=== PATIENT | female | born 1945 | race Caucasian/White ===

== ENCOUNTER 2017-02-08 16:07 | Inpatient (IN) | payer MEDICARE, BC ==
--- NOTE | 2017-02-08 17:12 | EDM.PDOC ---
ED HPI GENERAL MEDICAL PROBLEM - General Chief Complaint: General Stated Complaint: SOB Time Seen by Provider: 02/08/17 17:59 Source of Information: Reports: Patient, Family History Limitations: Reports: No Limitations - History of Present Illness INITIAL COMMENTS - FREE TEXT/NARRATIVE: pt arrived with increasing sob and not being able to rest at nite. 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 She has slight stomach pain. She has had some dark and tarry stools. She recently moved from [facility] and she has been hospitalized twice at [facility]. she has been transfused with a number of units of blood. She did have a colonoscopy and gastro at [place]. She is so short of breath again that she is not able to funtion. She lives in a home with her who has dementia. Onset: Gradual Duration: Day(s):, Getting Worse Location: Reports: Abdomen Associated Symptoms: Reports: Shortness of Breath, Weakness, Other ( Pt has had syncope and maybe a cardiac arrest that the daughter did cpr for. ) - Related Data Allergies Allergy/AdvReac Type Severity Reaction Status Date / Time escitalopram Allergy Drowsiness Verified 02/08/17 16:38 sertraline Allergy Stomach Verified 02/08/17 16:38 Upset shellfish derived Allergy Vomiting Verified 02/08/17 16:38 shrimp Allergy Vomiting Verified 02/08/17 16:38 venlafaxine Allergy Nausea and Verified 02/08/17 16:38 Vomiting BUPROPION HYDROBROMIDE Allergy Bleeding Uncoded 02/08/17 16:38 GLUTEN Allergy Other Uncoded 02/08/17 16:38 GOLD Allergy Hives Uncoded 02/08/17 16:31 SILVER PICRATE Allergy Hives Uncoded 02/08/17 16:31 SULFA DRUGS Allergy Nausea and Uncoded 02/08/17 16:38 Vomiting X RAY DYE Allergy Itching Uncoded 02/08/17 16:38 Home Meds: Home Meds Albuterol [Proventil HFA] 1 puff INH QID 02/08/17 [History] Albuterol/Ipratropium [DuoNeb 3.0-0.5 MG/3 ML] 1 dose INH QID 02/08/17 [History] Aspirin [Halfprin] 1 tab PO DAILY 02/08/17 [History] Benazepril [Lotensin] 1 tab PO DAILY 02/08/17 [History] Cholecalciferol (Vitamin D3) [Vitamin D3] 1 tab PO DAILY 02/08/17 [History] Cyclobenzaprine [Flexeril] 1 tab PO TID PRN 02/08/17 [History] Furosemide [Lasix] 1 tab PO DAILY 02/08/17 [History] Isosorbide Mononitrate [Isosorbide Mononitrate ER] 1 tab PO DAILY 02/08/17 [ History] Lovastatin 1 tab PO QPM 02/08/17 [History] Metoprolol Tartrate 75 mg PO BID 02/08/17 [History] Multivitamin [Multi-Vitamin Daily] 1 tab PO DAILY 02/08/17 [History] Nebulizer [[employer] Disposable Nebulizer] 1 ea INH Q4H PRN 02/08/17 [History] Nicotine Polacrilex [Nicotine Lozenge] 1 boo PO Q4H 02/08/17 [History] Nicotine [Nicotine Patch] 1 patch TOP Q24H 02/08/17 [History] Nitroglycerin [Nitrostat] 1 tab PO ASDIRECTED 02/08/17 [History] Octreotide [SandoSTATIN LAR] 30 mg SQ ASDIRECTED 02/08/17 [History] Omeprazole 1 tab PO BID 02/08/17 [History] Oxybutynin [Oxybutynin ER] 10 mg PO DAILY 02/08/17 [History] Vitamin E 1 tab PO DAILY 02/08/17 [History] amLODIPine [Norvasc] 1 tab PO DAILY 02/08/17 [History] hydrALAZINE [Apresoline] 1 tab PO Q8H 02/08/17 [History] traZODone 1 tab PO BEDTIME 02/08/17 [History] ED ROS GENERAL - Review of Systems Review Of Systems: See Below Constitutional: Reports: No Symptoms, Decreased Appetite HEENT: Reports: No Symptoms Respiratory: Reports: Shortness of Breath Cardiovascular: Reports: Palpitations Endocrine: Reports: Fatigue GI/Abdominal: Reports: Abdominal Pain, Other (pt has slight upper abdomanal pain. ) : Reports: No Symptoms Musculoskeletal: Reports: No Symptoms Skin: Reports: No Symptoms Neurological: Reports: No Symptoms Psychiatric: Reports: No Symptoms, Depression ED EXAM, GENERAL - Physical Exam Exam: See Below Free Text/Narrative:: pt arrived with increased sob. She has had black stools. She is so weak she is not able to function. Exam Limited By: No Limitations General Appearance: Alert, Anxious, Moderate Distress, Other (pupils equal and reactive) Ears: Normal TMs Nose: Normal Inspection Throat/Mouth: Normal Inspection Head: Atraumatic Neck: Normal Inspection Respiratory/Chest: Decreased Breath Sounds Cardiovascular: Regular Rate, Rhythm GI/Abdominal: Tender, Other (pt has tenderness in the upper abdoman. ) (Female) Exam: Deferred Rectal (Female) Exam: Deferred Back Exam: Normal Inspection Extremities: Normal Inspection Neurological: Alert, Oriented, Normal Cognition Psychiatric: Flat Affect Course - Vital Signs Last Recorded V/S: Last Vital Signs Temp 37.1 C 02/08/17 17:28 Pulse 54 L 02/08/17 17:28 Resp 21 H 02/08/17 17:28 BP 144/45 H 02/08/17 17:28 Pulse Ox 93 L 02/08/17 17:28 - Orders/Labs/Meds Orders: Active Orders 24 hr Category Date Time Status Chest 1V Frontal [CR] Stat Exams 02/08/17 17:10 Taken COMPREHENSIVE METABOLIC PN,CMP [CHEM] Urgent Lab 02/08/17 17:31 Received RED BLOOD CELLS LP [BBK] Stat Lab 02/08/17 17:56 Ordered TYPE AND SCREEN [BBK] Stat Lab 02/08/17 17:56 Ordered UA W/MICROSCOPIC [URIN] Urgent Lab 02/08/17 17:09 Uncollected Labs: Laboratory Tests 02/08/17 Range/Units 17:31 WBC 8.2 (4.5-11.0) K/uL RBC 3.02 L (3.30-5.50) M/uL Hgb 7.9 L (12.0-15.0) g/dL Hct 26.1 L (36.0-48.0) % MCV 86 (80-98) fL MCH 26 L (27-31) pg MCHC 30 L (32-36) % Plt Count 292 (150-400) K/uL Neut % (Auto) 73 H (36-66) % Lymph % (Auto) 11 L (24-44) % Cross % (Auto) 13 H (2-6) % Eos % (Auto) 2 (2-4) % Baso % (Auto) 1 (0-1) % - Re-Assessments/Exams Free Text/Narrative Re-Assessment/Exam: 02/08/17 18:14 pt was found to have a hg of 7.9. She has a creatnine of 1.4. Her chest xray shows a large left pleural effusion. Departure - Departure Time of Disposition: 18:17 Disposition: Admitted As Inpatient 65 Condition: Fair Clinical Impression: Anemia, Pleural effusion - Discharge Information Referrals: PCP,None [Primary Care Provider] - Forms: ED Department Discharge Care Plan Goals: admit to Dr cornelius. - My Orders Last 24 Hours: My Active Orders 02/08/17 17:09 UA W/MICROSCOPIC [URIN] Urgent 02/08/17 17:10 Chest 1V Frontal [CR] Stat 02/08/17 17:31 COMPREHENSIVE METABOLIC PN,CMP [CHEM] Urgent 02/08/17 17:56 RED BLOOD CELLS LP [BBK] Stat TYPE AND SCREEN [BBK] Stat - Assessment/Plan Last 24 Hours: My Active Orders 02/08/17 17:09 UA W/MICROSCOPIC [URIN] Urgent 02/08/17 17:10 Chest 1V Frontal [CR] Stat 02/08/17 17:31 COMPREHENSIVE METABOLIC PN,CMP [CHEM] Urgent 02/08/17 17:56 RED BLOOD CELLS LP [BBK] Stat TYPE AND SCREEN [BBK] Stat
[2017-02-08] MEDS ORDERED: Albuterol 0.083% 2.5 MG/3 ML Neb Soln NEB ONE (18:22)
[2017-02-08] MEDS: Sodium Chloride 0.9% 1,000 ML IV SCH ×2 (19:04→19:06)
--- NOTE | 2017-02-08 19:53 | PCM.HP ---
H&P History of Present Illness - General Date of Service: 02/08/17 Admit Problem/Dx: Admission Diagnosis/Problem Admission Diagnosis/Problem Pleural effusion Source of Information: Patient, Family, Provider History Limitations: Reports: No Limitations - History of Present Illness Initial Comments - Free Text/Narative: Akiko presents to the emergency room today with shortness of breath. She reports that she has not had normal breathing for the past month. She has been hospitalized twice for management of symptomatic anemia as well as heart failure and COPD exacerbation. She reports mild shortness of breath at rest and moderate with activity. She has orthopnea and occasional lower extremity swelling. She does not have a cough and has not had any fevers. Some days are better than others and she is always short of breath. Nebulizers don't seem to help much. She has had a few tarry stools the past few days but has not had hematemesis. No complaints of chest pain or abdominal pain. She does report a tender bruise on the right lower part of her abdomen from her last hospital stay. She was just discharged from the hospital a few days ago and has not felt well since that time. She is fatigued and has no appetite. Workup in the emergency room revealed a moderate left pleural effusion as well as a hemoglobin of 7.9. She will be admitted for further management and workup. - Related Data Allergies/Adverse Reactions: Allergies Allergy/AdvReac Type Severity Reaction Status Date / Time escitalopram Allergy Drowsiness Verified 02/08/17 16:38 sertraline Allergy Stomach Verified 02/08/17 16:38 Upset shellfish derived Allergy Vomiting Verified 02/08/17 16:38 shrimp Allergy Vomiting Verified 02/08/17 16:38 venlafaxine Allergy Nausea and Verified 02/08/17 16:38 Vomiting BUPROPION HYDROBROMIDE Allergy Bleeding Uncoded 02/08/17 16:38 GLUTEN Allergy Other Uncoded 02/08/17 16:38 GOLD Allergy Hives Uncoded 02/08/17 16:31 SILVER PICRATE Allergy Hives Uncoded 02/08/17 16:31 SULFA DRUGS Allergy Nausea and Uncoded 02/08/17 16:38 Vomiting X RAY DYE Allergy Itching Uncoded 02/08/17 16:38 Home Medications: Home Meds Albuterol [Proventil HFA] 1 puff INH QID 02/08/17 [History] Albuterol/Ipratropium [DuoNeb 3.0-0.5 MG/3 ML] 1 dose INH QID 02/08/17 [History] Aspirin [Halfprin] 1 tab PO DAILY 02/08/17 [History] Benazepril [Lotensin] 1 tab PO DAILY 02/08/17 [History] Cholecalciferol (Vitamin D3) [Vitamin D3] 1 tab PO DAILY 02/08/17 [History] Cyclobenzaprine [Flexeril] 1 tab PO TID PRN 02/08/17 [History] Furosemide [Lasix] 1 tab PO DAILY 02/08/17 [History] Isosorbide Mononitrate [Isosorbide Mononitrate ER] 1 tab PO DAILY 02/08/17 [ History] Lovastatin 1 tab PO QPM 02/08/17 [History] Metoprolol Tartrate 75 mg PO BID 02/08/17 [History] Multivitamin [Multi-Vitamin Daily] 1 tab PO DAILY 02/08/17 [History] Nebulizer [[employer] Disposable Nebulizer] 1 ea INH Q4H PRN 02/08/17 [History] Nicotine Polacrilex [Nicotine Lozenge] 1 boo PO Q4H 02/08/17 [History] Nicotine [Nicotine Patch] 1 patch TOP Q24H 02/08/17 [History] Nitroglycerin [Nitrostat] 1 tab PO ASDIRECTED 02/08/17 [History] Octreotide [SandoSTATIN LAR] 30 mg SQ ASDIRECTED 02/08/17 [History] Omeprazole 1 tab PO BID 02/08/17 [History] Oxybutynin [Oxybutynin ER] 10 mg PO DAILY 02/08/17 [History] Vitamin E 1 tab PO DAILY 02/08/17 [History] amLODIPine [Norvasc] 1 tab PO DAILY 02/08/17 [History] hydrALAZINE [Apresoline] 1 tab PO Q8H 02/08/17 [History] traZODone 1 tab PO BEDTIME 02/08/17 [History] Past Medical History HEENT History: Reports: Impaired Vision Cardiovascular History: Reports: CAD, Hypertension, [place] Other Cardiovascular History: THREE VESSEL BYPASS IN 2013 Respiratory History: Reports: COPD Gastrointestinal History: Reports: GI Bleed Genitourinary History: Reports: Urinary Incontinence 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 History: Reports: Musculoskeletal History: Reports: Fracture Other Musculoskeletal History: HIP FRACTURE Neurological History: Reports: CVA Psychiatric History: Reports: Anxiety, Depression Hematologic History: Reports: Anemia, Blood Transfusion(s) - Past Surgical History HEENT Surgical History: Reports: Adenoidectomy, Cataract Surgery, Eye Surgery, Tonsillectomy Other HEENT Surgeries/Procedures: RIGHT EYE Cardiovascular Surgical History: Reports: Coronary Artery Bypass, Valve Replacement Respiratory Surgical History: Reports: None GI Surgical History: Reports: Colonoscopy, EGD Other GI Surgeries/Procedures: MEKELS DIVERTICULI, ESOPHAGEAL VARACESE Female Surgical History: Reports: Tubal Ligation Neurological Surgical History: Reports: Other (See Below) Other Neurological Surgeries/Procedures: SPINAL STENOSIS Social & Family History - Family History Cardiac: Reports: CAD (Brother) - Tobacco Use Smoking Status *Q: Current Some Day Smoker Years of Tobacco use: 50 Packs/Tins Daily: 1 Used Tobacco, but Quit: No Second Hand Smoke Exposure: Yes - Caffeine Use Caffeine Use: Reports: None - Alcohol Use Alcohol Use History: No - Recreational Drug Use Recreational Drug Use: No H&P Review of Systems - Review of Systems: Review Of Systems: See Below Free Text/Narrative: A complete 12 point review of systems was obtained. Pertinent positives and negatives are noted in the history of present illness. All other systems were reviewed and were negative except as noted. Exam - Exam Exam: See Below - Vital Signs Vital Signs: Last Vital Signs Temp 37.6 C 02/08/17 19:06 Pulse 60 02/08/17 19:06 Resp 15 02/08/17 19:06 BP 113/46 L 02/08/17 19:06 Pulse Ox 96 02/08/17 19:06 Weight: 69 kg - Exam Quality Assessment: No: Supplemental Oxygen General: Alert, Oriented, Cooperative. No: Mild Distress HEENT: Conjunctiva Clear, Mucosa Moist & [place]. No: Scleral Icterus Neck: Supple, Trachea Midline. No: Lymphadenopathy, JVD, Thyromegaly Lungs: Normal Respiratory Effort, Decreased Breath Sounds (Both lung bases, left greater than right), Crackles (Left lung base). No: Wheezing Cardiovascular: Regular Rate, Irregular Rhythm, Systolic Murmur (Mild diffuse systolic ejection murmur) GI/Abdominal Exam: Normal Bowel Sounds, Soft, Non-Tender, No Distention, Other ( 3 x 6 cm mildly tender bruise right lower abdomen) Back Exam: Normal Inspection, Full Range of Motion Extremities: No Pedal Edema. No: Increased Warmth Peripheral Pulses: 2+: Dorsalis Pedis (L), Dorsalis Pedis (R) Skin: Warm, Dry, Ecchymosis (As above on the abdomen) Neuro Extensive - Mental Status: Alert, Oriented x3, Nl Response to Commands Neuro Extensive - Motor, Sensory, Reflexes: CN II-XII Intact. No: Abnormal Reflexes, Abnormal Motor, Tremor Psychiatric: Alert, Normal Affect - Patient Data Lab Results Last 24 hrs: Laboratory Results - last 24 hr 02/08/17 02/08/17 02/08/17 Range/Units 17:31 17:31 18:12 WBC 8.2 (4.5-11.0) K/uL RBC 3.02 L (3.30-5.50) M/uL Hgb 7.9 L (12.0-15.0) g/dL Hct 26.1 L (36.0-48.0) % MCV 86 (80-98) fL MCH 26 L (27-31) pg MCHC 30 L (32-36) % Plt Count 292 (150-400) K/uL Neut % (Auto) 73 H (36-66) % Lymph % (Auto) 11 L (24-44) % Smith % (Auto) 13 H (2-6) % Eos % (Auto) 2 (2-4) % Baso % (Auto) 1 (0-1) % PT 11.0 (9.5-12.0) sec INR 1.03 (0.80-1.20) APTT 27.5 (27.0-36.0) sec Sodium 137 L (140-148) mmol/L Potassium 4.1 (3.6-5.2) mmol/L Chloride 102 (100-108) mmol/L Carbon Dioxide 25 (21-32) mmol/L Anion Gap 14.1 H (5.0-14.0) mmol/L BUN 31 H (7-18) mg/dL Creatinine 1.4 H (0.6-1.0) mg/dL Est Cr Clr Drug Dosing 28.07 mL/min Estimated GFR (MDRD) 37 L (>60) Glucose 105 (74-106) mg/dL Calcium 8.8 (8.5-10.1) mg/dL Total Bilirubin 0.4 (0.2-1.0) mg/dL AST 18 (15-37) U/L ALT 18 (12-78) U/L Alkaline Phosphatase 48 (46-116) U/L NT-Pro-B Natriuret Pep (5-125) pg/mL Total Protein 5.9 L (6.4-8.2) g/dL Albumin 2.6 L (3.4-5.0) g/dL Globulin 3.3 (2.3-3.5) g/dL Albumin/Globulin Ratio 0.8 L (1.2-2.2) 02/08/17 Range/Units 18:22 WBC (4.5-11.0) K/uL RBC (3.30-5.50) M/uL Hgb (12.0-15.0) g/dL Hct (36.0-48.0) % MCV (80-98) fL MCH (27-31) pg MCHC (32-36) % Plt Count (150-400) K/uL Neut % (Auto) (36-66) % Lymph % (Auto) (24-44) % Smith % (Auto) (2-6) % Eos % (Auto) (2-4) % Baso % (Auto) (0-1) % PT (9.5-12.0) sec INR (0.80-1.20) APTT (27.0-36.0) sec Sodium (140-148) mmol/L Potassium (3.6-5.2) mmol/L Chloride (100-108) mmol/L Carbon Dioxide (21-32) mmol/L Anion Gap (5.0-14.0) mmol/L BUN (7-18) mg/dL Creatinine (0.6-1.0) mg/dL Est Cr Clr Drug Dosing mL/min Estimated GFR (MDRD) (>60) Glucose (74-106) mg/dL Calcium (8.5-10.1) mg/dL Total Bilirubin (0.2-1.0) mg/dL AST (15-37) U/L ALT (12-78) U/L Alkaline Phosphatase (46-116) U/L NT-Pro-B Natriuret Pep 4977 H (5-125) pg/mL Total Protein (6.4-8.2) g/dL Albumin (3.4-5.0) g/dL Globulin (2.3-3.5) g/dL Albumin/Globulin Ratio (1.2-2.2) Result Diagrams: 02/08/17 17:31 02/08/17 17:31 Imaging Impressions Last 24 hrs: Chest x-ray - images personally reviewed - evidence for previous sternotomy. Fluid or scarring in the fissure on the right. Heart size is normal. Moderate left pleural effusion. CT scan of the chest - images personally reviewed - small right-sided and moderate left-sided pleural effusions. Previous sternotomy noted with sternal wires. No obvious infiltrate. Coronary artery calcifications are noted. *Q Meaningful Use (ADM) - VTE *Q VTE Criteria *Q: VTE Pharmacological Contraindications *Q: Risk of Bleeding - VTE Risk Assess *Q Each Risk Factor Represents 1 Point: Congestive heart failure (CHF), Abnormal Pulmonary Function (COPD) Total Score 1 Point Risk Factors: 2 Each Risk Factor Represents 2 Points: Age 60 - 74 Years Total Score 2 Point Risk Factors: 2 Each Risk Factor Represents 3 Points: None Total Score 3 Point Risk Factors: 0 Each Risk Factor Represents 5 Points: None Total Score 5 Point Risk Factors: 0 Venous Thromboembolism Risk Factor Score *Q: 4 - Stroke *Q Stroke Criteria *Q: - AMI *Q AMI Criteria *Q: - Problem List (1) Pleural effusion, left SNOMED Code(s): 32883059 ICD Code: J90 - PLEURAL EFFUSION, NOT ELSEWHERE CLASSIFIED Status: Acute Current Visit: Yes (2) Anemia due to blood loss SNOMED Code(s): 217723692 ICD Code: D50.0 - IRON DEFICIENCY ANEMIA SECONDARY TO BLOOD LOSS (CHRONIC) Status: Acute Current Visit: Yes (3) Atrial fibrillation SNOMED Code(s): 53634501 ICD Code: I48.91 - UNSPECIFIED ATRIAL FIBRILLATION Status: Acute Current Visit: Yes Qualifiers: Atrial fibrillation type: paroxysmal Qualified Code(s): I48.0 - Paroxysmal atrial fibrillation (4) Diastolic congestive heart failure SNOMED Code(s): 799210529 ICD Code: I50.30 - UNSPECIFIED DIASTOLIC (CONGESTIVE) HEART FAILURE Status : Chronic Current Visit: Yes Qualifiers: Congestive heart failure chronicity: chronic Qualified Code(s): I50.32 - Chronic diastolic (congestive) heart failure (5) Acquired arteriovenous malformation of stomach SNOMED Code(s): 586624765 ICD Code: K31.819 - ANGIODYSPLASIA OF STOMACH AND DUODENUM WITHOUT BLEEDING Status: Chronic Current Visit: Yes (6) Stage III chronic kidney disease SNOMED Code(s): 605145032 ICD Code: N18.3 - CHRONIC KIDNEY DISEASE, STAGE 3 (MODERATE) Status: Chronic Current Visit: Yes (7) Coronary artery disease SNOMED Code(s): 52353538 ICD Code: I25.10 - ATHSCL HEART DISEASE OF [place] CORONARY ARTERY W/O ANG PCTRS Status: Chronic Current Visit: Yes Qualifiers: Coronary Disease-Associated Artery/Lesion type: [place] artery [place] vs. transplanted heart: [place] heart Associated angina: without angina Qualified Code(s): I25.10 - Atherosclerotic heart disease of [place] coronary artery without angina pectoris (8) COPD (chronic obstructive pulmonary disease) SNOMED Code(s): 89800204 ICD Code: J44.9 - CHRONIC OBSTRUCTIVE PULMONARY DISEASE, UNSPECIFIED Status : Chronic Current Visit: Yes Qualifiers: COPD type: emphysema Emphysema type: unspecified Qualified Code(s): J43.9 - Emphysema, unspecified Problem List Initiated/Reviewed/Updated: Yes Orders Last 24hrs: Active Orders 24 hr Category Date Time Status Patient Status Manage Transfer [TRANSFER] Routine ADT 02/08/17 19:35 Ordered RT Aerosol Therapy [RC] ASDIRECTED Care 02/08/17 18:22 Active Chest 1V Frontal [CR] Stat Exams 02/08/17 17:10 Taken Chest wo Cont [CT] Stat Exams 02/08/17 18:15 Taken RED BLOOD CELLS LP [BBK] Stat Lab 02/08/17 17:56 Ordered TYPE AND SCREEN [BBK] Stat Lab 02/08/17 17:56 Ordered UA W/MICROSCOPIC [URIN] Urgent Lab 02/08/17 17:09 Uncollected Sodium Chloride 0.9% [Normal Saline] 1,000 ml Med 02/08/17 18:30 Active IV ASDIRECTED Resuscitation Status Routine Resus Stat 02/08/17 19:38 Ordered Medication Orders Sodium Chloride (Normal Saline) 1,000 mls @ 100 mls/hr IV ASDIRECTED JUSTINE Last Admin: 02/08/17 19:06 Dose: 100 mls/hr Assessment/Plan Comment:: ASSESSMENT AND PLAN - Moderate left pleural effusion - suspect heart failure but cannot rule out parapneumonic effusion and malignancy would be of the differential with her long smoking history. She is symptomatic and would benefit from diagnostic and therapeutic thoracentesis. -Surgical consult in the morning for diagnostic and therapeutic thoracentesis -will need ultrasound marking in the morning Anemia due to blood loss - Sounds like acute on chronic with known gastric and duodenal AVM's. She has had recent melena. Was recently on warfarin but this was discontinued by the patient because of bleeding and diarrhea. GI consult has recommended once monthly octreotide injections. She is symptomatic with a hemoglobin of 8 in the setting of coronary artery disease, heart failure and COPD and I think would benefit from a blood transfusion. -Transfuse 1 unit of packed red blood cells -Hemoglobin in the morning -Continue outpatient octreotide per schedule Diastolic congestive heart failure - Volume status appears appropriate at this time. She is on good medical management as an outpatient. -Continue medical management -Echo on Wednesday COPD - Recently quit smoking. No evidence for acute exacerbation. Stage III chronic kidney disease - creatinine near baseline at this time. Volume status appears appropriate. Maintenance issues - - DVT prophylaxis - mechanical with risk of bleeding - GI prophylaxis - PPI - Nutrition - low sodium diet with supplements - Richards catheter - not indicated CODE STATUS - full code Admission justification - This patient will be admitted for inpatient services and is medically appropriate meeting medical necessity for inpatient admission as outlined in my documentation. I reasonably expect the patient will require inpatient services that span a period time over 2 midnights. I reasonably expect this patient to be discharged or transferred within 96 hours [facility] Disposition - anticipate discharge home after the hospital stay Primary care physician - Jourdan in [place] M.D.
[2017-02-08] MEDS ORDERED: Polyethylene Glycol 3350 Powder 17 GM Packet PO PRN (21:16)
[2017-02-08] MEDS ORDERED: Metoprolol Tartrate 50 MG Tab PO SCH (21:16)
[2017-02-08] MEDS ORDERED: Cyclobenzaprine 10 MG Tab PO PRN (21:16)
[2017-02-08] MEDS ORDERED: Albuterol 0.083% 2.5 MG/3 ML Neb Soln NEB PRN (21:16)
[2017-02-08] MEDS ORDERED: Ondansetron 4 MG Tab.DIS PO PRN (21:16)
[2017-02-08] MEDS ORDERED: Acetaminophen 325 MG Tab PO PRN (21:16)
[2017-02-08] MEDS: hydrALAZINE 25 MG Tab PO SCH (23:02)
[2017-02-09] MEDS: LORazepam 1 MG Tab PO PRN ×2 (00:48→21:27)
--- NOTE | 2017-02-09 01:02 | PCM.SN ---
- Free Text/Narrative Note: call from [address] [place] [address] at 00:27 Mrs. Hidalgo is requesting medication for restlessness, something to help her relax. o: vitals have been stable. t 36.6-54-18 b/p 127/76 O2 sat 97%, current infusion of blood products. a; agitation, mild p; Ativan 1 mg po every 4 hours as needed for agitation/anxiety. continue present plan of care.
[2017-02-09] MEDS: hydrALAZINE 25 MG Tab PO SCH ×3 (06:23→16:47)
--- NOTE | 2017-02-09 08:26 | CR ---
Chest 1V Frontal INDICATION: sob FINDINGS: Sternotomy. Consolidation left lower lobe with partially loculated left pleural effusion. M inimal fluid or fissure thickening in the right midlung. Cardiac enlargement with pulmonary venous hy pertension. Slight blunting of the right costophrenic angle. Findings suggest CHF. Superimposed pneumonia in the left lung base is not excluded. Please see CT [facility] report.
[2017-02-09] MEDS ORDERED: Metoprolol Tartrate 50 MG, Metoprolol Tartrate 25 MG PO SCH ×2 (09:00)
[2017-02-09] MEDS: Oxybutynin 5 MG Tab PO SCH ×2 (09:35→21:22)
[2017-02-09] MEDS: Pantoprazole 40 MG Tab.CR PO SCH (09:35)
[2017-02-09] MEDS: Furosemide 20 MG Tab PO SCH (09:35)
[2017-02-09] MEDS: Aspirin 81 MG Tab.EC PO SCH (09:36)
[2017-02-09] MEDS: Isosorbide Mononitrate 30 MG Tab.ER PO SCH (09:37)
[2017-02-09] MEDS: amLODIPine 10 MG Tab PO SCH (11:29)
--- NOTE | 2017-02-09 12:00 | PCM.PN ---
- General Info Date of Service: 02/09/17 Subjective Update: Ms. Hidalgo has felt modestly improved since admission with less shortness of breath and increased energy. Appetite has been fairly good and she has been able to walk in the hallways with minimal assistance. Vital signs have been stable and she has remained afebrile. - Patient Data Vitals - Most Recent: Last Vital Signs Temp 97.7 F 02/09/17 11:26 Pulse 55 L 02/09/17 11:26 Resp 16 02/09/17 11:26 BP 122/33 L 02/09/17 11:29 Pulse Ox 94 L 02/09/17 11:26 Weight - Most Recent: 149 lb 12.8 oz I&O - Last 24 Hours: Intake & Output 02/08/17 02/09/17 02/09/17 22:59 06:59 14:59 Intake Total 0 594 240 Output Total 350 200 Balance 0 244 40 Lab Results Last 24 Hours: Laboratory Results - last 24 hr 02/09/17 02/09/17 02/09/17 Range/Units 05:00 05:00 05:49 WBC 6.9 (4.5-11.0) K/uL RBC 3.24 L (3.30-5.50) M/uL Hgb 8.9 L (12.0-15.0) g/dL Hct 27.9 L (36.0-48.0) % MCV 86 (80-98) fL MCH 28 (27-31) pg MCHC 32 (32-36) % Plt Count 247 (150-400) K/uL Sodium 138 L (140-148) mmol/L Potassium 3.7 (3.6-5.2) mmol/L Chloride 104 (100-108) mmol/L Carbon Dioxide 24 (21-32) mmol/L Anion Gap 13.7 (5.0-14.0) mmol/L BUN 30 H (7-18) mg/dL Creatinine 1.4 H (0.6-1.0) mg/dL Est Cr Clr Drug Dosing 27.41 mL/min Estimated GFR (MDRD) 37 L (>60) Glucose 93 (74-106) mg/dL Calcium 8.6 (8.5-10.1) mg/dL Urine Color Yellow Urine Appearance Cloudy Urine pH 5.0 (4.5-8.0) Ur Specific [place] 1.020 (1.008-1.030) Urine Protein 500 H (NEGATIVE) mg/dL Urine Glucose (UA) Normal (NEGATIVE) mg/dL Urine Ketones Negative (NEGATIVE) mg/dL Urine Occult Blood Negative (NEGATIVE) Urine Nitrite Negative (NEGATIVE) Urine Bilirubin Small (NEGATIVE) Urine Urobilinogen Normal (NORMAL) mg/dL Ur Leukocyte Esterase Negative (NEGATIVE) Urine RBC 5-10 H (0-5) Urine WBC 10-20 H (0-5) Ur Epithelial Cells Moderate Amorphous Sediment Not seen Urine Bacteria Many Urine Mucus Not seen Med Orders - Current: Current Medications Acetaminophen (Tylenol) 650 mg PO Q4H PRN PRN Reason: Pain (Mild 1-3)/fever Hydrocodone Bitart/Acetaminophen ([place] 325-5 Mg) 1 tab PO Q4H PRN PRN Reason: Pain (moderate 4-6) Albuterol (Proventil Neb Soln) 2.5 mg NEB Q4H PRN PRN Reason: Shortness Of Breath/wheezing Amlodipine Besylate (Norvasc) 10 mg PO DAILY [facility] Last Admin: 02/09/17 11:29 Dose: 10 mg Aspirin (Halfprin) 81 mg PO DAILY [facility] Last Admin: 02/09/17 09:36 Dose: 81 mg Benazepril HCl (Lotensin) 40 mg PO DAILY [facility] Last Admin: 02/09/17 11:28 Dose: 40 mg Cyclobenzaprine HCl (Flexeril) 10 mg PO TID PRN PRN Reason: Muscle Spasm Furosemide (Lasix) 20 mg PO DAILY [facility] Last Admin: 02/09/17 09:35 Dose: 20 mg Hydralazine HCl (Apresoline) 50 mg PO Q8H [facility] Last Admin: 02/09/17 11:29 Dose: 50 mg Isosorbide Mononitrate (Imdur) 60 mg PO DAILY [facility] Last Admin: 02/09/17 09:37 Dose: 60 mg Lorazepam (Ativan) 1 mg PO Q4H PRN PRN Reason: Agitation Last Admin: 02/09/17 00:48 Dose: 1 mg Lovastatin (Mevacor) 40 mg PO QPM [facility] Ondansetron HCl (Zofran Odt) 4 mg PO Q6H PRN PRN Reason: Nausea able to take PO Oxybutynin Chloride (Oxybutynin) 5 mg PO BID [facility] Last Admin: 02/09/17 09:35 Dose: 5 mg Pantoprazole Sodium (Protonix) 40 mg PO ACBREAKFAST [facility] Last Admin: 02/09/17 09:35 Dose: 40 mg Polyethylene Glycol (Miralax) 17 gm PO DAILY PRN PRN Reason: Constipation Senna/Docusate Sodium (Senna Plus) 1 tab PO BID PRN PRN Reason: Constipation Discontinued Medications Albuterol (Proventil Neb Soln) 2.5 mg NEB ONETIME ONE Stop: 02/08/17 18:23 Last Admin: 02/08/17 19:05 Dose: 2.5 mg Hydralazine HCl (Apresoline) 50 mg PO Q8H [facility] Last Admin: 02/09/17 06:23 Dose: Not Given Sodium Chloride (Normal Saline) 1,000 mls @ 100 mls/hr IV ASDIRECTED [facility] Last Admin: 02/08/17 19:06 Dose: 100 mls/hr Metoprolol Tartrate (Lopressor) 75 mg PO BID [facility] Last Admin: 02/08/17 22:59 Dose: 75 mg Metoprolol Tartrate 50 mg/ (Metoprolol Tartrate 25 mg) 75 mg PO BID [facility] - Exam Quality Assessment: DVT Prophylaxis General: Alert, Oriented, Cooperative, Mild Distress Lungs: Clear to Auscultation, Normal Respiratory Effort, Decreased Breath Sounds (Left base). No: Crackles, Rales, Rhonchi, Rub, Stridor, Wheezing Cardiovascular: Regular Rate, Regular Rhythm, Murmurs. No: Irregular Rhythm, Bradycardia, Tachycardia GI/Abdominal Exam: Normal Bowel Sounds, Soft, Non-Tender, No Organomegaly, No Distention Extremities: Non-Tender, No Pedal Edema Skin: Warm, Dry, Intact - Problem List Review Problem List Initiated/Reviewed/Updated: Yes - My Orders Last 24 Hours: My Active Orders 02/09/17 10:30 Chest [US] Stat 02/09/17 10:31 Consult to Physician [CONS] Routine 02/09/17 10:32 Notify Provider Consults [RC] ASDIRECTED - Plan Plan:: ASSESSMENT AND PLAN - Moderate left pleural effusion - suspect heart failure but cannot rule out parapneumonic effusion and malignancy would be of the differential with her long smoking history. She is symptomatic and would benefit from diagnostic and therapeutic thoracentesis. -Consult Dr. Davis for thoracentesis today -Ultrasound pending for localization of the fusion and site for thoracentesis Anemia due to blood loss - Sounds like acute on chronic with known gastric and duodenal AVM's. She has had recent melena. Was recently on warfarin but this was discontinued by the patient because of bleeding and diarrhea. GI consult has recommended once monthly octreotide injections. Symptomatically improved following transfusion of one unit of red blood cells -Recheck hemoglobin in a.m. -Continue outpatient octreotide per schedule Diastolic congestive heart failure - Volume status appears appropriate at this time. She is on good medical management as an outpatient. -Continue medical management -Echo on Wednesday COPD - Recently quit smoking. No evidence for acute exacerbation. Stage III chronic kidney disease - creatinine near baseline at this time. Volume status appears appropriate. Maintenance issues - - DVT prophylaxis - mechanical with risk of bleeding - GI prophylaxis - PPI - Nutrition - low sodium diet with supplements - Richards catheter - not indicated CODE STATUS - full code Admission justification - This patient will be admitted for inpatient services and is medically appropriate meeting medical necessity for inpatient admission as outlined in my documentation. I reasonably expect the patient will require inpatient services that span a period time over 2 midnights. I reasonably expect this patient to be discharged or transferred within 96 hours [facility] Disposition - anticipate discharge home after the hospital stay Primary care physician - Jourdan lima [place]
--- NOTE | 2017-02-09 12:35 | US ---
US Guidance Thoracentesis NC INDICATION: L pleural effusion for thoracentesis FINDINGS: Ultrasound guidance provided for thoracentesis.
--- NOTE | 2017-02-09 13:41 | CT ---
Chest wo Cont Total DLP 312 mGycm. INDICATION: Evaluate for mass/infiltrate after thoracentesis COMPARISON: None. FINDINGS: Small to moderate right and small left pleural effusions. Sternotomy. Calcified granuloma r ight lower lobe. Enlarged mediastinal lymph nodes measuring up to 15 mm short axis on series 2 image 33. Presumed right renal cyst is partially visualized. Adrenal glands are negative. Arterial calcific ations. Exam otherwise unremarkable. IMPRESSION: 1. Small to moderate right and small left pleural effusions. 2. Enlarged mediastinal lymph nodes measuring up to 15 mm in short axis. Follow-up CT in 4-6 months r ecommended.
--- NOTE | 2017-02-09 14:19 | CR ---
Chest 2V INDICATION: f/u left thoracentesis FINDINGS: Comparison 02/08/2017. Interval decrease in size of the left pleural effusion consistent wi th thoracentesis. No evidence for pneumothorax. Sternotomy with cardiac valve replacement. Heart size at the upper limits of normal. Tiny bilateral pleural effusions.
[2017-02-10] MEDS: hydrALAZINE 25 MG Tab PO SCH ×3 (00:58→17:10)
[2017-02-10] MEDS: Pantoprazole 40 MG Tab.CR PO SCH (08:10)
[2017-02-10] MEDS: Acetaminophen/HYDROcodone 325-5 MG Tab PO PRN ×3 (08:18→18:51)
[2017-02-10] MEDS: Furosemide 20 MG Tab PO SCH (08:36)
[2017-02-10] MEDS: Aspirin 81 MG Tab.EC PO SCH (08:37)
[2017-02-10] MEDS: Isosorbide Mononitrate 30 MG Tab.ER PO SCH (08:38)
[2017-02-10] MEDS: amLODIPine 10 MG Tab PO SCH (08:38)
[2017-02-10] MEDS: Oxybutynin 5 MG Tab PO SCH (08:38)
--- NOTE | 2017-02-10 12:34 | PCM.DCSUM1 ---
Discharge Summary - Hospital Course Brief History: Ms. Hidalgo is a 71-year-old woman who is admitted through the emergency department with increased shortness of breath secondary to a left pleural effusion, congestive heart failure, and COPD. - Discharge Data Discharge Date: 02/10/17 Discharge Disposition: Home, Self-Care 01 Condition: Fair - Discharge Diagnosis/Problem(s) (1) Anemia SNOMED Code(s): 538054065 ICD Code: D64.9 - ANEMIA, UNSPECIFIED Status: Acute Current Visit: Yes (2) Pleural effusion, left SNOMED Code(s): 34805969 ICD Code: J90 - PLEURAL EFFUSION, NOT ELSEWHERE CLASSIFIED Status: Acute Current Visit: Yes (3) Atrial fibrillation SNOMED Code(s): 08369744 ICD Code: I48.91 - UNSPECIFIED ATRIAL FIBRILLATION Status: Acute Current Visit: Yes Qualifiers: Atrial fibrillation type: paroxysmal Qualified Code(s): I48.0 - Paroxysmal atrial fibrillation (4) Diastolic congestive heart failure SNOMED Code(s): 379094071 ICD Code: I50.30 - UNSPECIFIED DIASTOLIC (CONGESTIVE) HEART FAILURE Status : Chronic Current Visit: Yes Qualifiers: Congestive heart failure chronicity: chronic Qualified Code(s): I50.32 - Chronic diastolic (congestive) heart failure (5) Acquired arteriovenous malformation of stomach SNOMED Code(s): 425164080 ICD Code: K31.819 - ANGIODYSPLASIA OF STOMACH AND DUODENUM WITHOUT BLEEDING Status: Chronic Current Visit: Yes (6) Stage III chronic kidney disease SNOMED Code(s): 824146231 ICD Code: N18.3 - CHRONIC KIDNEY DISEASE, STAGE 3 (MODERATE) Status: Chronic Current Visit: Yes (7) COPD (chronic obstructive pulmonary disease) SNOMED Code(s): 85473707 ICD Code: J44.9 - CHRONIC OBSTRUCTIVE PULMONARY DISEASE, UNSPECIFIED Status : Chronic Current Visit: Yes Qualifiers: COPD type: emphysema Emphysema type: unspecified Qualified Code(s): J43.9 - Emphysema, unspecified - Patient Summary/Data Consults: Consultations 02/09/17 10:31 Consult to Physician [CONS] Routine Consulting Provider: Alberto Davisesy Call Completed to Consulting Physician: Yes Reason for Consult: Thoracentesis, left pleural effusion Hospital Course: Ms. Hidalgo is a 71-year-old woman with a history of multiple medical problems including diastolic congestive heart failure, COPD, chronic kidney disease stage III, and type 2 diabetes mellitus. She has had several recent hospitalizations at another facility because of shortness of breath. For a period of a few days prior to admission she developed increased shortness of breath and was brought to the emergency department here for further evaluation. Evaluation showed evidence of a left pleural effusion, there was no evidence of underlying infection or significant COPD exacerbation. She was admitted to the hospital and given supplemental oxygen as well as continued on her usual medications. She was noted to have significant slowing of heart rate into the 30s. Beta everett was held in by the time of discharge her heart rate was consistently in the 50-70 range. Consult was obtained with Dr. Alberto Davis, thoracentesis was performed. Evaluation of fluid was consistent with a transudate likely secondary to her diastolic congestive heart failure. CT scan of the chest was obtained after the thoracentesis and did show some enlarged lymph nodes but no evidence of obvious malignancy or infiltrate. Recommendation is that she has a follow-up CT scan for reassessment in 4-6 months. By the time of discharge following day she was feeling significantly improved and was able to walk in the hallways without significant shortness of breath. Metoprolol will be discontinued on discharge but she will remain on all other medications. Follow-up appointment will be scheduled with her primary care provider within one week. She'll remain on a strict 2 g sodium diabetic diet and activity will be as tolerated. - Patient Instructions Diet: Low Sodium Activity: As Tolerated - Discharge Plan Home Medications: Home Meds Albuterol [Proventil HFA] 1 puff INH QID 02/08/17 [History] Albuterol/Ipratropium [DuoNeb 3.0-0.5 MG/3 ML] 1 dose INH QID 02/08/17 [History] Aspirin [Halfprin] 1 tab PO DAILY 02/08/17 [History] Benazepril [Lotensin] 1 tab PO DAILY 02/08/17 [History] Cholecalciferol (Vitamin D3) [Vitamin D3] 1 tab PO DAILY 02/08/17 [History] Cyclobenzaprine [Flexeril] 1 tab PO TID PRN 02/08/17 [History] Furosemide [Lasix] 1 tab PO DAILY 02/08/17 [History] Isosorbide Mononitrate [Isosorbide Mononitrate ER] 1 tab PO DAILY 02/08/17 [ History] Lovastatin 1 tab PO QPM 02/08/17 [History] Multivitamin [Multi-Vitamin Daily] 1 tab PO DAILY 02/08/17 [History] Nebulizer [[place] Disposable Nebulizer] 1 ea INH Q4H PRN 02/08/17 [History] Nicotine Polacrilex [Nicotine Lozenge] 1 boo PO Q4H 02/08/17 [History] Nicotine [Nicotine Patch] 1 patch TOP Q24H 02/08/17 [History] Nitroglycerin [Nitrostat] 1 tab PO ASDIRECTED 02/08/17 [History] Octreotide [SandoSTATIN LAR] 30 mg SQ ASDIRECTED 02/08/17 [History] Omeprazole 1 tab PO BID 02/08/17 [History] Oxybutynin [Oxybutynin ER] 10 mg PO DAILY 02/08/17 [History] Vitamin E 1 tab PO DAILY 02/08/17 [History] amLODIPine [Norvasc] 1 tab PO DAILY 02/08/17 [History] hydrALAZINE [Apresoline] 1 tab PO Q8H 02/08/17 [History] traZODone 1 tab PO BEDTIME 02/08/17 [History] Referrals: Maddy Arambula NP [Ordering Only Provider] - 02/17/17 1:00 pm PCP,None [Primary Care Provider] - - Patient Data Vitals - Most Recent: Last Vital Signs Temp 98.1 F 02/10/17 07:30 Pulse 58 L 02/10/17 07:30 Resp 18 02/10/17 07:30 BP 144/42 H 02/10/17 08:38 Pulse Ox 98 02/10/17 07:30 Weight - Most Recent: 154 lb 3.2 oz I&O - Last 24 hours: Intake & Output 02/09/17 02/10/17 02/10/17 22:59 06:59 14:59 Intake Total 250 560 Balance 250 560 Lab Results - Last 24 hrs: Laboratory Results - last 24 hr 02/09/17 02/09/17 02/09/17 Range/Units 12:00 12:00 12:00 Lactate Dehydrogenase (82-234) U/L Fluid Type Pleural fluid Pleural fluid Pleural fluid Fluid pH 9 Fluid WBC 246 /ul Fluid RBC 1947 /ul Fluid Mononuclear Cell 97 % Fl Polymorphonucl Cell 3 % Fluid Glucose 127 mg/dL Fluid Total Protein 1.3 g/dL Fluid Amylase 26 U/L 02/09/17 Range/Units 12:50 Lactate Dehydrogenase 67 L (82-234) U/L Fluid Type Fluid pH Fluid WBC /ul Fluid RBC /ul Fluid Mononuclear Cell % Fl Polymorphonucl Cell % Fluid Glucose mg/dL Fluid Total Protein g/dL Fluid Amylase U/L BRIANNA Results - Last 24 hrs: Microbiology 02/09/17 12:00 Gram Stain - Final Pleural Fluid - Pleural Cavity, Left Body Fluid Culture - Preliminary NO GROWTH AFTER 1 DAY Med Orders - Current: Current Medications Acetaminophen (Tylenol) 650 mg PO Q4H PRN PRN Reason: Pain (Mild 1-3)/fever Hydrocodone Bitart/Acetaminophen ([place] 325-5 Mg) 1 tab PO Q4H PRN PRN Reason: Pain (moderate 4-6) Last Admin: 02/10/17 08:18 Dose: 1 tab Albuterol (Proventil Neb Soln) 2.5 mg NEB Q4H PRN PRN Reason: Shortness Of Breath/wheezing Amlodipine Besylate (Norvasc) 10 mg PO DAILY [facility] Last Admin: 02/10/17 08:38 Dose: 10 mg Aspirin (Halfprin) 81 mg PO DAILY [facility] Last Admin: 02/10/17 08:37 Dose: 81 mg Benazepril HCl (Lotensin) 40 mg PO DAILY [facility] Last Admin: 02/10/17 08:37 Dose: 40 mg Cyclobenzaprine HCl (Flexeril) 10 mg PO TID PRN PRN Reason: Muscle Spasm Furosemide (Lasix) 20 mg PO DAILY [facility] Last Admin: 02/10/17 08:36 Dose: 20 mg Hydralazine HCl (Apresoline) 50 mg PO Q8H [facility] Last Admin: 02/10/17 08:36 Dose: 50 mg Isosorbide Mononitrate (Imdur) 60 mg PO DAILY [facility] Last Admin: 02/10/17 08:38 Dose: 60 mg Lorazepam (Ativan) 1 mg PO Q4H PRN PRN Reason: Agitation Last Admin: 02/09/17 21:27 Dose: 1 mg Lovastatin (Mevacor) 40 mg PO QPM [facility] Last Admin: 02/09/17 17:34 Dose: 40 mg Ondansetron HCl (Zofran Odt) 4 mg PO Q6H PRN PRN Reason: Nausea able to take PO Oxybutynin Chloride (Oxybutynin) 5 mg PO BID [facility] Last Admin: 02/10/17 08:38 Dose: 5 mg Pantoprazole Sodium (Protonix) 40 mg PO ACBREAKFAST [facility] Last Admin: 02/10/17 08:10 Dose: 40 mg Polyethylene Glycol (Miralax) 17 gm PO DAILY PRN PRN Reason: Constipation Senna/Docusate Sodium (Senna Plus) 1 tab PO BID PRN PRN Reason: Constipation Discontinued Medications Albuterol (Proventil Neb Soln) 2.5 mg NEB ONETIME ONE Stop: 02/08/17 18:23 Last Admin: 02/08/17 19:05 Dose: 2.5 mg Hydralazine HCl (Apresoline) 50 mg PO Q8H [facility] Last Admin: 02/09/17 06:23 Dose: Not Given Sodium Chloride (Normal Saline) 1,000 mls @ 100 mls/hr IV ASDIRECTED [facility] Last Admin: 02/08/17 19:06 Dose: 100 mls/hr Metoprolol Tartrate (Lopressor) 75 mg PO BID [facility] Last Admin: 02/08/17 22:59 Dose: 75 mg Metoprolol Tartrate 50 mg/ (Metoprolol Tartrate 25 mg) 75 mg PO BID [facility] Last Admin: 02/09/17 14:18 Dose: Not Given *Q Meaningful Use (DIS) - VTE *Q VTE Criteria *Q: VTE Pharmacological Contraindications *Q: Risk of Bleeding - Stroke *Q Stroke Criteria *Q: - AMI *Q AMI Criteria *Q:
--- NOTE | 2017-02-14 09:41 | OR ---
CORRECTED COPY DATE OF PROCEDURE: 02/09/2017 PREOPERATIVE DIAGNOSIS: Large left pleural effusion. POSTOPERATIVE DIAGNOSIS: Large left pleural effusion. PROCEDURE: Ultrasound-guided left thoracentesis ([id number]). ANESTHESIA: Local. INDICATION FOR PROCEDURE: A 71-year-old presenting with, among other things, some increasing shortness of breath. Chest x-ray and CT showed large left pleural effusion. Plan is to proceed with a left thoracentesis with ultrasound guidance. Potential risks including bleeding, infection, injury to the lung or chest wall were reviewed, and the patient wishes to proceed. DETAILS OF PROCEDURE: The patient was placed in a sitting position in her hospital bed. Ultrasound equipment was then used to identify an adequate location for the thoracentesis in the left lateral chest wall. That area was then prepped and draped, and anesthetized with 1% lidocaine, and the thoracentesis catheter was placed without difficulty. 1000 mL of clear serous fluid was evacuated and as much fluid as possible was removed. At that point, the catheter was withdrawn and dressing applied. Subsequent chest x-ray showed the vast majority of the fluid to have been removed from the left pleural space. Fluid was sent for microbiologic, cytologic, and chemistry examination as well as cell count differential. Alberto Davis MD /[id number]
== END 2017-02-10 19:10 | disposition home or self-care (01) | DRG 292 ==
LOC: JP.ED 16:07 → JP.MS 19:35
PROVIDERS: ADMIT Internal Medicine; ATTEND Hospitalist
PROC: 30233N1 Transfusion of Nonautologous Red Blood Cells into Peripheral Vein, Percutaneous Approach (ICD-10-PCS; principal; 2017-02-08)
PROC: 0W9B3ZX Drainage of Left Pleural Cavity, Percutaneous Approach, Diagnostic (ICD-10-PCS; 2017-02-09)
DX: I50.32 Chronic diastolic (congestive) heart failure (principal); J90 Pleural effusion, not elsewhere classified; D50.0 Iron deficiency anemia secondary to blood loss (chronic); J43.9 Emphysema, unspecified; Z87.891 Personal history of nicotine dependence; I48.0 Paroxysmal atrial fibrillation; R53.1 Weakness; R06.02 Shortness of breath; N18.3 Chronic kidney disease, stage 3 (moderate); K31.89 Other diseases of stomach and duodenum; F32.9 Major depressive disorder, single episode, unspecified; I25.10 Atherosclerotic heart disease of native coronary artery without angina pectoris; I25.2 Old myocardial infarction; Z86.73 Personal history of transient ischemic attack (TIA), and cerebral infarction without residual deficits; F41.9 Anxiety disorder, unspecified; Z95.2 Presence of prosthetic heart valve; Z95.1 Presence of aortocoronary bypass graft; H54.7 Unspecified visual loss; Z79.82 Long term (current) use of aspirin; Z91.041 Radiographic dye allergy status; Z91.018 Allergy to other foods; Z91.013 Allergy to seafood; Z88.2 Allergy status to sulfonamides; Z88.8 Allergy status to other drugs, medicaments and biological substances; R45.1 Restlessness and agitation; R59.9 Enlarged lymph nodes, unspecified
CPT/HCPCS: 36415; 71010 ×2; 71250; 80053; 83880; 85025; 85610; 85730; 86850; 86900; 86901; 86920; 86922; 94640; 96360; 99285; J7040; 36430; 71020; 71020-26; 80048; 81001; 82150; 82945; 83615; 83986; 84157; 85027; 87015; 87070; 87102; 87116; 87205; 87206; 88112; 88305; 89050; 93306; 96361; A9270-GY; P9016

== ENCOUNTER 2017-02-15 17:29 | Emergency (ER) | payer MEDICARE, BC ==
--- NOTE | 2017-02-15 18:33 | EDM.PDOC ---
ED HPI GENERAL MEDICAL PROBLEM - General Chief Complaint: Respiratory Problem Stated Complaint: FLUID IN LUNGS, SOB Time Seen by Provider: 02/15/17 18:15 Source of Information: Reports: Patient, Family History Limitations: Reports: No Limitations - History of Present Illness INITIAL COMMENTS - FREE TEXT/NARRATIVE: 71-year-old female hospitalized last week for a large pleural effusion which was removed with thoracentesis. She had several days where she felt much better but over the past 48 hours her symptoms have returned and she feels worse than when she was hospitalized the first time. Some pleuritic pain with breathing. She has very little tolerance for any activity. Her respiratory rate is up but her O2 saturations are normal. No significant fever. Her abdomen also feels "full" but not painful. She is probably becoming fairly hypoxic at night because last night she was so confused she didn't recognize her daughter. There also appears to be a significant anxiety component as well. Onset: Gradual (Over the past 48 hours) Severity: Moderate Associated Symptoms: Reports: Chest Pain (Pleuritic pain with breathing), Shortness of Breath, Weakness, Other (Had an episode of incontinence today which is very unusual for her). Denies: Headaches Upper Abdomen Pain Score (Numeric/FACES): 8 - Related Data Allergies Allergy/AdvReac Type Severity Reaction Status Date / Time escitalopram Allergy Drowsiness Verified 02/15/17 18:01 sertraline AdvReac Stomach Verified 02/15/17 18:01 Upset shellfish derived AdvReac Vomiting Verified 02/15/17 18:01 shrimp AdvReac Vomiting Verified 02/15/17 18:01 venlafaxine AdvReac Nausea and Verified 02/15/17 18:01 Vomiting BUPROPION HYDROBROMIDE Allergy Bleeding Uncoded 02/15/17 18:01 GLUTEN Allergy Other Uncoded 02/15/17 18:01 GOLD Allergy Hives Uncoded 02/15/17 18:01 SILVER PICRATE Allergy Hives Uncoded 02/15/17 18:01 X RAY DYE Allergy Itching Uncoded 02/15/17 18:01 SULFA DRUGS AdvReac Nausea and Uncoded 02/15/17 18:01 Vomiting Home Meds: Home Meds Albuterol [Proventil HFA] 1 puff INH QID 02/08/17 [History] Albuterol/Ipratropium [DuoNeb 3.0-0.5 MG/3 ML] 1 dose INH QID 02/08/17 [History] Aspirin [Halfprin] 1 tab PO DAILY 02/08/17 [History] Benazepril [Lotensin] 1 tab PO DAILY 02/08/17 [History] Cholecalciferol (Vitamin D3) [Vitamin D3] 1 tab PO DAILY 02/08/17 [History] Cyclobenzaprine [Flexeril] 1 tab PO TID PRN 02/08/17 [History] Furosemide [Lasix] 1 tab PO DAILY 02/08/17 [History] Isosorbide Mononitrate [Isosorbide Mononitrate ER] 1 tab PO DAILY 02/08/17 [ History] Lovastatin 1 tab PO QPM 02/08/17 [History] Multivitamin [Multi-Vitamin Daily] 1 tab PO DAILY 02/08/17 [History] Nebulizer [Devilbiss Disposable Nebulizer] 1 ea INH Q4H PRN 02/08/17 [History] Nitroglycerin [Nitrostat] 1 tab PO ASDIRECTED 02/08/17 [History] Omeprazole 1 tab PO BID 02/08/17 [History] Oxybutynin [Oxybutynin ER] 10 mg PO DAILY 02/08/17 [History] Vitamin E 1 tab PO DAILY 02/08/17 [History] amLODIPine [Norvasc] 1 tab PO DAILY 02/08/17 [History] hydrALAZINE [Apresoline] 1 tab PO Q8H 02/08/17 [History] traZODone 1 tab PO BEDTIME 02/08/17 [History] Past Medical History HEENT History: Reports: Impaired Vision Cardiovascular History: Reports: CAD, Hypertension, [place] Other Cardiovascular History: THREE VESSEL BYPASS IN 2013 Respiratory History: Reports: COPD, SOB Gastrointestinal History: Reports: GI Bleed Genitourinary History: Reports: Urinary Incontinence 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: Musculoskeletal History: Reports: Fracture Other Musculoskeletal History: HIP FRACTURE Neurological History: Reports: CVA Psychiatric History: Reports: Anxiety, Depression Hematologic History: Reports: Anemia, Blood Transfusion(s) - Infectious Disease History Infectious Disease History: Reports: Chicken Pox - Past Surgical History HEENT Surgical History: Reports: Adenoidectomy, Cataract Surgery, Eye Surgery, Tonsillectomy Other HEENT Surgeries/Procedures: RIGHT EYE Cardiovascular Surgical History: Reports: Coronary Artery Bypass, Valve Replacement Respiratory Surgical History: Reports: None GI Surgical History: Reports: Colonoscopy, EGD Other GI Surgeries/Procedures: MEKELS DIVERTICULI, ESOPHAGEAL VARACESE Female Surgical History: Reports: Tubal Ligation Neurological Surgical History: Reports: Other (See Below) Other Neurological Surgeries/Procedures: SPINAL STENOSIS Social & Family History - Family History Family Medical History: Noncontributory Cardiac: Reports: CAD - Tobacco Use Smoking Status *Q: Former Smoker Years of Tobacco use: 54 Packs/Tins Daily: 1 Used Tobacco, but Quit: Yes Month Tobacco Last Used: 12/2016 Second Hand Smoke Exposure: Yes - Caffeine Use Caffeine Use: Reports: None - Recreational Drug Use Recreational Drug Use: No ED ROS GENERAL - Review of Systems Review Of Systems: See Below Constitutional: Reports: Malaise, Weakness. Denies: Fever, Chills Respiratory: Reports: Shortness of Breath, Pleuritic Chest Pain, Cough Cardiovascular: Reports: Chest Pain. Denies: Palpitations GI/Abdominal: Reports: Abdominal Pain (Abdomen feels full, bloating) : Reports: Incontinence Musculoskeletal: Reports: Back Pain Skin: Denies: Bruising Neurological: Reports: Confusion, Weakness Psychiatric: Reports: Anxiety ED EXAM, GENERAL - Physical Exam Exam: See Below Exam Limited By: No Limitations General Appearance: Alert, Anxious, Mild Distress Respiratory/Chest: Respiratory Distress (Mild respiratory distress, increased respiratory rate), Decreased Breath Sounds (Left base) Cardiovascular: Regular Rate, Rhythm, Extra Beats GI/Abdominal: Soft, Tender (Reacts with some mild diffuse tenderness to palpation) Course - Vital Signs Last Recorded V/S: Last Vital Signs Temp 99.3 F 02/15/17 18:10 Pulse 90 02/15/17 20:26 Resp 23 H 02/15/17 20:26 BP 159/49 H 02/15/17 20:26 Pulse Ox 92 L 02/15/17 20:26 - Orders/Labs/Meds Orders: Active Orders 24 hr Category Date Time Status Chest 2V [CR] Routine Exams 02/15/17 18:15 Taken Labs: Laboratory Tests 02/15/17 02/15/17 Range/Units 18:31 18:31 WBC 7.5 (4.5-11.0) K/uL RBC 2.88 L (3.30-5.50) M/uL Hgb 7.6 L (12.0-15.0) g/dL Hct 25.1 L (36.0-48.0) % MCV 87 (80-98) fL MCH 26 L (27-31) pg MCHC 30 L (32-36) % Plt Count 262 (150-400) K/uL Neut % (Auto) 75 H (36-66) % Lymph % (Auto) 12 L (24-44) % [place] % (Auto) 12 H (2-6) % Eos % (Auto) 0 L (2-4) % Baso % (Auto) 1 (0-1) % Sodium 136 L (140-148) mmol/L Potassium 4.6 (3.6-5.2) mmol/L Chloride 103 (100-108) mmol/L Carbon Dioxide 25 (21-32) mmol/L Anion Gap 12.6 (5.0-14.0) mmol/L BUN 33 H (7-18) mg/dL Creatinine 1.5 H (0.6-1.0) mg/dL Est Cr Clr Drug Dosing 24.35 mL/min Estimated GFR (MDRD) 34 L (>60) Glucose 122 H (74-106) mg/dL Calcium 8.6 (8.5-10.1) mg/dL Troponin I 0.060 H* (0.000-0.056) ng/mL Meds: Medications Discontinued Medications Generic Name Dose Route Start Last Admin Trade Name Freq PRN Reason Stop Dose Admin Morphine Sulfate 2 mg 02/15/17 20:11 02/15/17 20:36 Morphine IVPUSH 02/15/17 20:12 2 mg ONETIME ONE Administration - Re-Assessments/Exams Free Text/Narrative Re-Assessment/Exam: 02/15/17 19:19 Two-view chest x-ray was obtained and showed a recurrence of the left pleural effusion. Hemoglobin is also dropping again, now at 7.6. With her persistent anemia, recurring pleural effusion and other comorbidities I called [facility] in [place] and Dr. Gordon kindly accepted her in transfer for admission. Departure - Departure Time of Disposition: 21:17 Disposition: DC/Tfer to Other Condition: Fair Clinical Impression: Pleural effusion, left Anemia Qualifiers: Anemia type: unspecified type Qualified Code(s): D64.9 - Anemia, unspecified - Discharge Information Referrals: PCP,None [Primary Care Provider] - Forms: ED Department Discharge Care Plan Goals: Patient will be transferred to [facility] in [place] for internal medicine care, cardiology and internal medicine consultations. - My Orders Last 24 Hours: My Active Orders 02/15/17 18:15 Chest 2V [CR] Routine - Assessment/Plan Last 24 Hours: My Active Orders 02/15/17 18:15 Chest 2V [CR] Routine
[2017-02-15] MEDS ORDERED: Morphine 2 MG/ML Syringe IVPUSH ONE (20:11)
--- NOTE | 2017-02-16 09:12 | CR ---
Chest 2V HISTORY: Dyspnea COMPARISON: 02/09/2017. FINDINGS: There is been some slight reaccumulation of left-sided pleural fluid from the prior study. There is mild to moderate vascular congestive change. Small right-sided effusion. Prior median sterno rochelle.
== END 2017-02-15 21:20 | disposition other institution (70) ==
LOC: JP.ED 17:29
DX: J90 Pleural effusion, not elsewhere classified (principal); D64.9 Anemia, unspecified; I10 Essential (primary) hypertension; I25.10 Atherosclerotic heart disease of native coronary artery without angina pectoris; J44.9 Chronic obstructive pulmonary disease, unspecified; F32.9 Major depressive disorder, single episode, unspecified; Z87.891 Personal history of nicotine dependence; Z79.82 Long term (current) use of aspirin; Z79.899 Other long term (current) drug therapy; Z91.041 Radiographic dye allergy status; Z91.048 Other nonmedicinal substance allergy status; Z91.013 Allergy to seafood; Z88.2 Allergy status to sulfonamides; Z88.8 Allergy status to other drugs, medicaments and biological substances
CPT/HCPCS: 36415; 71020; 80048; 84484; 85025; 96374; 99285; J2270; 99284

== ENCOUNTER 2017-04-29 21:55 | Inpatient (IN) | payer MEDICARE, BC ==
[2017-04-29] MEDS ORDERED: Acetaminophen/HYDROcodone 325-5 MG Tab PO ONE (23:12)
--- NOTE | 2017-04-29 23:18 | EDM.PDOC ---
ED HPI GENERAL MEDICAL PROBLEM - General Chief Complaint: General Stated Complaint: ILLNESS Time Seen by Provider: 04/29/17 23:12 Source of Information: Reports: Patient, Family History Limitations: Reports: No Limitations - History of Present Illness INITIAL COMMENTS - FREE TEXT/NARRATIVE: pt had 3 lidocaine patches on her legs and feet. These were 5 % lidocaine patches. She still was having alot of pain. She wanted to have a vicodin but her daughter ws afraid to give her the lidocaine. Onset: Today Duration: Hour(s): Associated Symptoms: Reports: Other ( Pt is having a heart rate of 140 to 150 at times. ) - Related Data Allergies Allergy/AdvReac Type Severity Reaction Status Date / Time escitalopram Allergy Drowsiness Verified 04/29/17 22:31 sertraline AdvReac Stomach Verified 04/29/17 22:31 Upset shellfish derived AdvReac Vomiting Verified 04/29/17 22:31 shrimp AdvReac Vomiting Verified 04/29/17 22:31 venlafaxine AdvReac Nausea and Verified 04/29/17 22:31 Vomiting BUPROPION HYDROBROMIDE Allergy Bleeding Uncoded 04/29/17 22:31 GLUTEN Allergy Other Uncoded 04/29/17 22:31 GOLD Allergy Hives Uncoded 04/29/17 22:31 SILVER PICRATE Allergy Hives Uncoded 04/29/17 22:31 X RAY DYE Allergy Itching Uncoded 04/29/17 22:31 SULFA DRUGS AdvReac Nausea and Uncoded 04/29/17 22:31 Vomiting Home Meds: Home Meds Albuterol [Proventil HFA] 1 puff INH QID 02/08/17 [History] Albuterol/Ipratropium [DuoNeb 3.0-0.5 MG/3 ML] 1 dose INH QID 02/08/17 [History] Aspirin [Halfprin] 1 tab PO DAILY 02/08/17 [History] Cholecalciferol (Vitamin D3) [Vitamin D3] 1 tab PO DAILY 02/08/17 [History] Multivitamin [Multi-Vitamin Daily] 1 tab PO DAILY 02/08/17 [History] Nebulizer [Devilbiss Disposable Nebulizer] 1 ea INH Q4H PRN 02/08/17 [History] Nitroglycerin [Nitrostat] 1 tab PO ASDIRECTED 02/08/17 [History] Omeprazole 1 tab PO BID 02/08/17 [History] Oxybutynin [Oxybutynin ER] 10 mg PO DAILY 02/08/17 [History] traZODone 1 tab PO BEDTIME 02/08/17 [History] Bumetanide [Bumetanide] 2 mg PO BID 04/29/17 [History] Iron Polysaccharides Complex [Ferrex 150] 150 mg PO DAILY 04/29/17 [History] Rosuvastatin Calcium [Rosuvastatin Calcium] 5 mg PO BEDTIME 04/29/17 [History] Sulfamethoxazole/Trimethoprim [Sulfamethoxazole-Tmp Ss Tablet] 1 mg PO ASDIRECTED 04/29/17 [History] predniSONE [Prednisone] 30 mg PO ASDIRECTED 04/29/17 [History] Past Medical History HEENT History: Reports: Impaired Vision Cardiovascular History: Reports: CAD, Hypertension, [place] Other Cardiovascular History: THREE VESSEL BYPASS IN 2012 Respiratory History: Reports: COPD, SOB Gastrointestinal History: Reports: GI Bleed Genitourinary History: Reports: Urinary Incontinence 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: Musculoskeletal History: Reports: Fracture Other Musculoskeletal History: HIP FRACTURE Neurological History: Reports: CVA Psychiatric History: Reports: Anxiety, Depression Hematologic History: Reports: Anemia, Blood Transfusion(s) - Infectious Disease History Infectious Disease History: Reports: Chicken Pox, Measles, Mumps - Past Surgical History HEENT Surgical History: Reports: Adenoidectomy, Cataract Surgery, Eye Surgery, Tonsillectomy Other HEENT Surgeries/Procedures: RIGHT EYE Cardiovascular Surgical History: Reports: Coronary Artery Bypass, Valve Replacement Respiratory Surgical History: Reports: None GI Surgical History: Reports: Colonoscopy, EGD Other GI Surgeries/Procedures: MEKELS DIVERTICULI, ESOPHAGEAL VARACESE Female Surgical History: Reports: Tubal Ligation Neurological Surgical History: Reports: Other (See Below) Other Neurological Surgeries/Procedures: SPINAL STENOSIS Social & Family History - Family History Family Medical History: Noncontributory Cardiac: Reports: CAD - Tobacco Use Smoking Status *Q: Former Smoker Years of Tobacco use: 54 Packs/Tins Daily: 1 Used Tobacco, but Quit: Yes Month Tobacco Last Used: 12/2016 Second Hand Smoke Exposure: Yes - Caffeine Use Caffeine Use: Reports: None - Recreational Drug Use Recreational Drug Use: No ED ROS GENERAL - Review of Systems Review Of Systems: See Below Constitutional: Reports: No Symptoms HEENT: Reports: No Symptoms Respiratory: Reports: No Symptoms Cardiovascular: Reports: Palpitations Endocrine: Reports: No Symptoms GI/Abdominal: Reports: No Symptoms : Reports: No Symptoms Musculoskeletal: Reports: No Symptoms Skin: Reports: No Symptoms Neurological: Reports: No Symptoms Psychiatric: Reports: Anxiety ED EXAM, GENERAL - Physical Exam Exam: See Below Free Text/Narrative:: pt arrived having some involumtary jerking motion. She gives a history of having 3 --5% lidocaine patches on her feet. These have been removed at this time. Exam Limited By: No Limitations General Appearance: Alert, Anxious, Moderate Distress Ears: Normal TMs Throat/Mouth: Normal Inspection Head: Atraumatic Respiratory/Chest: No Respiratory Distress Cardiovascular: Irregularly Irregular, Other (pt has a history of chronic atrial fib. Rate at this time is very rapid. ) GI/Abdominal: Soft, Non-Tender (Female) Exam: Deferred Rectal (Female) Exam: Deferred Back Exam: Normal Inspection Extremities: Normal Inspection, Other (pt ) Neurological: Alert, Oriented Psychiatric: Normal Affect Course - Vital Signs Last Recorded V/S: Last Vital Signs Temp 36.6 C 04/29/17 22:23 Pulse 145 H 04/30/17 00:52 Resp 16 04/30/17 00:47 BP 109/76 04/30/17 00:54 Pulse Ox 99 04/30/17 00:47 - Orders/Labs/Meds Orders: Active Orders 24 hr Category Date Time Status EKG Documentation Completion [RC] ASDIRECTED Care 04/29/17 23:11 Active Chest 1V Frontal [CR] Stat Exams 04/29/17 23:36 Taken PRO B-TYPE NATRIUR PEPT,BNPPRO [CHEM] Urgent Lab 04/30/17 00:31 Ordered Diltiazem [Cardizem] 100 mg Med 04/30/17 00:45 Active Sodium Chloride 0.9% [Normal Saline] 100 ml IV TITRATE EKG 12 Lead [EK] Routine Ther 04/29/17 23:11 Ordered Medication Orders Diltiazem HCl 100 mg/ Sodium (Chloride) 100 mls @ 5 mls/hr IV TITRATE JUSTINE; 5 MG /HR PRN Reason: Protocol Labs: Laboratory Tests 04/29/17 04/29/17 04/29/17 Range/Units 23:30 23:30 23:30 WBC 9.8 (4.5-11.0) K/uL RBC 2.83 L (3.30-5.50) M/uL Hgb 8.1 L (12.0-15.0) g/dL Hct 27.6 L (36.0-48.0) % MCV 98 (80-98) fL MCH 29 (27-31) pg MCHC 29 L (32-36) % Plt Count 157 (150-400) K/uL Neut % (Auto) 76 H (36-66) % Lymph % (Auto) 16 L (24-44) % [place] % (Auto) 7 H (2-6) % Eos % (Auto) 0 L (2-4) % Baso % (Auto) 0 (0-1) % Sodium 136 L (140-148) mmol/L Potassium 4.1 (3.6-5.2) mmol/L Chloride 100 (100-108) mmol/L Carbon Dioxide 31 (21-32) mmol/L Anion Gap 9.1 (5.0-14.0) mmol/L BUN 83 H* D (7-18) mg/dL Creatinine 2.1 H (0.6-1.0) mg/dL Est Cr Clr Drug Dosing 17.14 mL/min Estimated GFR (MDRD) 23 L (>60) Glucose 151 H (74-106) mg/dL Calcium 8.4 L (8.5-10.1) mg/dL Magnesium (1.8-2.4) mg/dL Total Bilirubin 0.3 (0.2-1.0) mg/dL AST 32 D (15-37) U/L ALT 52 D (12-78) U/L Alkaline Phosphatase 75 (46-116) U/L Troponin I 0.106 H* (0.000-0.056) ng/mL Total Protein 5.0 L (6.4-8.2) g/dL Albumin 2.6 L (3.4-5.0) g/dL Globulin 2.4 (2.3-3.5) g/dL Albumin/Globulin Ratio 1.1 L (1.2-2.2) TSH, Ultra Sensitive (0.358-3.740) uIU/mL 04/29/17 04/29/17 Range/Units 23:30 23:37 WBC (4.5-11.0) K/uL RBC (3.30-5.50) M/uL Hgb (12.0-15.0) g/dL Hct (36.0-48.0) % MCV (80-98) fL MCH (27-31) pg MCHC (32-36) % Plt Count (150-400) K/uL Neut % (Auto) (36-66) % Lymph % (Auto) (24-44) % [place] % (Auto) (2-6) % Eos % (Auto) (2-4) % Baso % (Auto) (0-1) % Sodium (140-148) mmol/L Potassium (3.6-5.2) mmol/L Chloride (100-108) mmol/L Carbon Dioxide (21-32) mmol/L Anion Gap (5.0-14.0) mmol/L BUN (7-18) mg/dL Creatinine (0.6-1.0) mg/dL Est Cr Clr Drug Dosing mL/min Estimated GFR (MDRD) (>60) Glucose (74-106) mg/dL Calcium (8.5-10.1) mg/dL Magnesium 1.9 (1.8-2.4) mg/dL Total Bilirubin (0.2-1.0) mg/dL AST (15-37) U/L ALT (12-78) U/L Alkaline Phosphatase (46-116) U/L Troponin I (0.000-0.056) ng/mL Total Protein (6.4-8.2) g/dL Albumin (3.4-5.0) g/dL Globulin (2.3-3.5) g/dL Albumin/Globulin Ratio (1.2-2.2) TSH, Ultra Sensitive 0.482 (0.358-3.740) uIU/mL Meds: Medications Generic Name Dose Route Start Last Admin Trade Name Freq PRN Reason Stop Dose Admin Diltiazem HCl 100 mg/ Sodium 100 mls @ 5 mls/hr 04/30/17 00:45 Chloride IV TITRATE JUSTINE Protocol 5 MG/HR Discontinued Medications Generic Name Dose Route Start Last Admin Trade Name Freq PRN Reason Stop Dose Admin Hydrocodone Bitart/Acetaminophen 1 tab 04/29/17 23:12 04/29/17 23:34 [place] 325-5 Mg PO 04/29/17 23:13 1 tab ONETIME ONE Administration Diltiazem HCl 10 mg 04/30/17 00:13 04/30/17 00:57 Diltiazem IVPUSH 04/30/17 00:14 Not Given ONETIME ONE Furosemide 40 mg 04/30/17 00:49 04/30/17 00:54 Lasix IVPUSH 04/30/17 00:50 40 mg ONETIME ONE Administration Metoprolol Tartrate 25 mg 04/30/17 00:46 04/30/17 00:52 Lopressor PO 04/30/17 00:47 25 mg ONETIME ONE Administration - Re-Assessments/Exams Free Text/Narrative Re-Assessment/Exam: 04/30/17 00:36 hg is 8.7 . She has a creatinine of 2.1. She has a elevated trop which is probably related to her renal funtion. She continues to have a heart rate of 140 to 150. She was given a bolus of cardizem 10mg iv push and a drip was started. At this point her chest xray showed some evidence of chf. Departure - Departure Time of Disposition: 01:03 Disposition: Admitted As Inpatient 65 Condition: Fair Clinical Impression: Rapid atrial fibrillation, CHF (congestive heart failure), Renal insufficiency - Discharge Information Referrals: Howard De Oliveira NP [Primary Care Provider] - Forms: ED Department Discharge Care Plan Goals: admit to hosp. - My Orders Last 24 Hours: My Active Orders 04/29/17 23:11 EKG Documentation Completion [RC] ASDIRECTED EKG 12 Lead [EK] Routine 04/29/17 23:36 Chest 1V Frontal [CR] Stat 04/30/17 00:31 PRO B-TYPE NATRIUR PEPT,BNPPRO [CHEM] Urgent 04/30/17 00:45 Diltiazem [Cardizem] 100 mg Sodium Chloride 0.9% [Normal Saline] 100 ml IV TITRATE - Assessment/Plan Last 24 Hours: My Active Orders 04/29/17 23:11 EKG Documentation Completion [RC] ASDIRECTED EKG 12 Lead [EK] Routine 04/29/17 23:36 Chest 1V Frontal [CR] Stat 04/30/17 00:31 PRO B-TYPE NATRIUR PEPT,BNPPRO [CHEM] Urgent 04/30/17 00:45 Diltiazem [Cardizem] 100 mg Sodium Chloride 0.9% [Normal Saline] 100 ml IV TITRATE
[2017-04-30] MEDS: Diltiazem 25 MG/5 ML SDV IVPUSH ONE ×2 (00:37→00:57)
[2017-04-30] MEDS ORDERED: Diltiazem 100 MG in Sodium Chloride 0.9% 100 ML IV SCH ×2 (00:45→02:00)
[2017-04-30] MEDS ORDERED: Metoprolol Tartrate 25 MG Tab PO ONE (00:46)
[2017-04-30] MEDS ORDERED: Furosemide 40 MG/4 ML VIAL IVPUSH ONE ×2 (00:49→18:59)
[2017-04-30] MEDS ORDERED: Promethazine 25 MG Tab PO PRN (01:32)
[2017-04-30] MEDS ORDERED: Albuterol 0.083% 2.5 MG/3 ML Neb Soln NEB PRN (01:32)
[2017-04-30] MEDS ORDERED: Heparin Sodium 5,000 Units/ML Vial IVPUSH SCH (02:15)
[2017-04-30] MEDS ORDERED: Sodium Chloride 0.9% 1,000 ML IV SCH (02:30)
[2017-04-30] MEDS ORDERED: Digoxin 500 MCG/2 ML Amp IVPUSH ONE (03:12)
[2017-04-30] MEDS ORDERED: Heparin Sodium 5,000 Units/ML Vial SUBCUT SCH ×2 (03:13→12:00)
--- NOTE | 2017-04-30 08:53 | CR ---
Chest 1V Frontal HISTORY: Rapid heart rate. COMPARISON: 02/15/2017. FINDINGS: Right-sided dialysis type catheter distal tip overlies superior vena cava right atrial junc tion. Prior median sternotomy. Cardiac size is enlarged and magnified from portable and lordotic proj ection. Small left-sided effusion smaller than previous study. Previously seen right-sided effusion a ppears to have resolved. No acute infiltrates seen. Impression: 1. Stable cardiomegaly. No acute congestive change. Resolved right-sided effusion improved left-sided effusion.
--- NOTE | 2017-04-30 09:37 | PCM.HP ---
H&P History of Present Illness - General Date of Service: 04/29/17 Admit Problem/Dx: Admission Diagnosis/Problem Admission Diagnosis/Problem Atrial fibrillation Source of Information: Patient - History of Present Illness Initial Comments - Free Text/Narative: 72 -year-old female with past medical history of atrial fibrillation with rate control and aspirin 81 mg daily, hypertension, CHF with diastolic, systolic heart failure with ejection fraction of 45-50%, CAD status post CABG, hyperlipidemia, IgA nephropathy was on dialysis 2 weeks ago, status post aortic wall replacement, COPD, adrenal carcinoma, fibromyalgia, anxiety, depression, intermittent episodes of upper GI bleed, cutaneous vasculitis, chronic constipation, irritable bowel syndrome came to the ED with the complaining of intermittent chest pains which started since morning associated with rapid heart beat. In the ED patient was diagnosed with atrial fibrillation and RVR. Patient blood pressures are low. Patient was on metoprolol medication. Patient received metoprolol 1 dose. Patient is a full code. Patient denies any recent fever, sick contacts, denies any exertional chest pain, breathing difficulty, orthopnea, PND. Patient has history of AVR status post repair not on any anticoagulation due to anemia. Other review of systems not significant - Related Data Allergies/Adverse Reactions: Allergies Allergy/AdvReac Type Severity Reaction Status Date / Time bupropion Allergy Bleeding Verified 04/30/17 08:36 escitalopram Allergy Drowsiness Verified 04/29/17 22:31 gluten Allergy Other Verified 04/30/17 08:36 gold Au 198 Allergy Hives Verified 04/30/17 08:36 Iodinated Contrast- Oral and Allergy Itching Verified 04/30/17 08:36 IV Dye silver Allergy Hives Verified 04/30/17 08:36 Sulfa (Sulfonamide Allergy Nausea and Verified 04/30/17 08:36 Antibiotics) Vomiting sertraline AdvReac Stomach Verified 04/29/17 22:31 Upset shellfish derived AdvReac Vomiting Verified 04/29/17 22:31 shrimp AdvReac Vomiting Verified 04/29/17 22:31 venlafaxine AdvReac Nausea and Verified 04/29/17 22:31 Vomiting Home Medications: Home Meds Albuterol [Proventil HFA] 1 puff INH QID 02/08/17 [History] Albuterol/Ipratropium [DuoNeb 3.0-0.5 MG/3 ML] 1 dose INH QID 02/08/17 [History] Aspirin [Halfprin] 1 tab PO DAILY 02/08/17 [History] Cholecalciferol (Vitamin D3) [Vitamin D3] 1 tab PO DAILY 02/08/17 [History] Multivitamin [Multi-Vitamin Daily] 1 tab PO DAILY 02/08/17 [History] Nebulizer [Devilbiss Disposable Nebulizer] 1 ea INH Q4H PRN 02/08/17 [History] Nitroglycerin [Nitrostat] 1 tab PO ASDIRECTED 02/08/17 [History] Omeprazole 1 tab PO BID 02/08/17 [History] Oxybutynin [Oxybutynin ER] 10 mg PO DAILY 02/08/17 [History] traZODone 1 tab PO BEDTIME 02/08/17 [History] Bumetanide [Bumetanide] 2 mg PO BID 04/29/17 [History] Iron Polysaccharides Complex [Ferrex 150] 150 mg PO DAILY 04/29/17 [History] Rosuvastatin Calcium [Rosuvastatin Calcium] 5 mg PO BEDTIME 04/29/17 [History] Sulfamethoxazole/Trimethoprim [Sulfamethoxazole-Tmp Ss Tablet] 1 mg PO ASDIRECTED 04/29/17 [History] predniSONE [Prednisone] 30 mg PO ASDIRECTED 04/29/17 [History] Lidocaine 1 patch TOP Q12H 04/30/17 [History] Lidocaine 2% [Xylocaine 2% Jelly] 0 ml TOP ASDIRECTED PRN 04/30/17 [History] Magnesium Chloride [Mag Delay] 535 mg PO DAILY 04/30/17 [History] Metoprolol Tartrate [Lopressor] 50 mg PO BID 04/30/17 [History] Triamcinolone Acetonide [Kenalog 0.1% Crm] 0 gm TOP BID 04/30/17 [History] Past Medical History HEENT History: Reports: Impaired Vision Cardiovascular History: Reports: CAD, Hypertension, AR Other Cardiovascular History: THREE VESSEL BYPASS IN 2012 Respiratory History: Reports: COPD, SOB Gastrointestinal History: Reports: GI Bleed Genitourinary History: Reports: Urinary Incontinence [employer] INST[employer]ER History: Reports: Musculoskeletal History: Reports: Fracture Other Musculoskeletal History: HIP FRACTURE Neurological History: Reports: CVA Psychiatric History: Reports: Anxiety, Depression Hematologic History: Reports: Anemia, Blood Transfusion(s) - Infectious Disease History Infectious Disease History: Reports: Chicken Pox, Measles, Mumps - Past Surgical History HEENT Surgical History: Reports: Adenoidectomy, Cataract Surgery, Eye Surgery, Tonsillectomy Other HEENT Surgeries/Procedures: RIGHT EYE Cardiovascular Surgical History: Reports: Coronary Artery Bypass, Valve Replacement Respiratory Surgical History: Reports: None GI Surgical History: Reports: Colonoscopy, EGD Other GI Surgeries/Procedures: MEKELS DIVERTICULI, ESOPHAGEAL VARACESE Female Surgical History: Reports: Tubal Ligation Neurological Surgical History: Reports: Other (See Below) Other Neurological Surgeries/Procedures: SPINAL STENOSIS Social & Family History - Family History Family Medical History: Noncontributory Cardiac: Reports: CAD - Tobacco Use Smoking Status *Q: Former Smoker Years of Tobacco use: 54 Packs/Tins Daily: 1 Used Tobacco, but Quit: Yes Month Tobacco Last Used: nov 2016 Second Hand Smoke Exposure: Yes - Caffeine Use Caffeine Use: Reports: Coffee, Soda, Tea - Recreational Drug Use Recreational Drug Use: No H&P Review of Systems - Review of Systems: Review Of Systems: See Below General: Denies: Fever, Chills Pulmonary: Denies: Shortness of Breath, Wheezing, Pleuritic Chest Pain Cardiovascular: Reports: Chest Pain. Denies: Dyspnea on Exertion, Orthopnea, PND Gastrointestinal: Denies: Abdominal Pain Genitourinary: Denies: Dysuria, Frequency, Burning Musculoskeletal: Denies: Neck Pain, Shoulder Pain, Arm Pain Skin: Denies: Cyanosis, Jaundice Psychiatric: Denies: Confusion, Depression Neurological: Denies: Confusion, Dizziness Hematologic/Lymphatic: Reports: Anemia. Denies: Easy Bleeding, Easy Bruising Immunologic: Denies: Anaphylaxis, Food Allergy Exam - Exam Exam: See Below - Vital Signs Vital Signs: Last Vital Signs Temp 36.4 C 04/30/17 08:51 Pulse 80 04/30/17 08:51 Resp 19 04/30/17 08:51 BP 104/55 L 04/30/17 08:51 Pulse Ox 95 04/30/17 08:51 Weight: 63.049 kg - Exam Quality Assessment: Supplemental Oxygen General: Alert, Oriented Neck: Supple, Trachea Midline Lungs: Clear to Auscultation, Normal Respiratory Effort Cardiovascular: Irregular Rhythm, Systolic Murmur GI/Abdominal Exam: Normal Bowel Sounds, Soft Extremities: Other (Venous status changes are present in lower extremity) Neurological: Cranial Nerves Intact, Reflexes Equal Bilateral Neuro Extensive - Mental Status: Alert, Oriented x3, Normal Mood/Affect Psychiatric: Alert, Normal Affect, Normal Mood - Patient Data Lab Results Last 24 hrs: Laboratory Results - last 24 hr 04/30/17 04/30/17 04/30/17 Range/Units 01:35 05:15 05:59 WBC 8.3 (4.5-11.0) K/uL RBC 2.53 L (3.30-5.50) M/uL Hgb 7.2 L (12.0-15.0) g/dL Hct 25.3 L (36.0-48.0) % MCV 100 H (80-98) fL MCH 29 (27-31) pg MCHC 29 L (32-36) % Plt Count 139 L (150-400) K/uL Neut % (Auto) 72 H (36-66) % Lymph % (Auto) 19 L (24-44) % Mcintosh % (Auto) 8 H (2-6) % Eos % (Auto) 1 L (2-4) % Baso % (Auto) 0 (0-1) % Percent Retic (0.5-1.5) % Sodium (140-148) mmol/L Potassium (3.6-5.2) mmol/L Chloride (100-108) mmol/L Carbon Dioxide (21-32) mmol/L Anion Gap (5.0-14.0) mmol/L BUN (7-18) mg/dL Creatinine (0.6-1.0) mg/dL Est Cr Clr Drug Dosing mL/min Estimated GFR (MDRD) (>60) Glucose (74-106) mg/dL Calcium (8.5-10.1) mg/dL Total Bilirubin (0.2-1.0) mg/dL AST (15-37) U/L ALT (12-78) U/L Alkaline Phosphatase (46-116) U/L Troponin I 0.107 H* (0.000-0.056) ng/mL Total Protein (6.4-8.2) g/dL Albumin (3.4-5.0) g/dL Globulin (2.3-3.5) g/dL Albumin/Globulin Ratio (1.2-2.2) Urine Color Yellow Urine Appearance Slightly cloudy Urine pH 5.0 (4.5-8.0) Ur Specific [place] 1.015 (1.008-1.030) Urine Protein 30 H (NEGATIVE) mg/dL Urine Glucose (UA) Normal (NEGATIVE) mg/dL Urine Ketones Negative (NEGATIVE) mg/dL Urine Occult Blood Moderate (NEGATIVE) Urine Nitrite Negative (NEGATIVE) Urine Bilirubin Negative (NEGATIVE) Urine Urobilinogen Normal (NORMAL) mg/dL Ur Leukocyte Esterase Negative (NEGATIVE) Urine RBC 0-5 (0-5) Urine WBC 0-5 (0-5) Ur Epithelial Cells Few Amorphous Sediment Not seen Urine Bacteria Not seen Urine Mucus Not seen Urine Other 04/30/17 04/30/17 04/30/17 Range/Units 05:59 05:59 06:00 WBC (4.5-11.0) K/uL RBC (3.30-5.50) M/uL Hgb (12.0-15.0) g/dL Hct (36.0-48.0) % MCV (80-98) fL MCH (27-31) pg MCHC (32-36) % Plt Count (150-400) K/uL Neut % (Auto) (36-66) % Lymph % (Auto) (24-44) % Mcintosh % (Auto) (2-6) % Eos % (Auto) (2-4) % Baso % (Auto) (0-1) % Percent Retic 8.5 H (0.5-1.5) % Sodium 138 L (140-148) mmol/L Potassium 3.6 (3.6-5.2) mmol/L Chloride 101 (100-108) mmol/L Carbon Dioxide 33 H (21-32) mmol/L Anion Gap 7.6 (5.0-14.0) mmol/L BUN 79 H* (7-18) mg/dL Creatinine 2.0 H (0.6-1.0) mg/dL Est Cr Clr Drug Dosing 17.99 mL/min Estimated GFR (MDRD) 24 L (>60) Glucose 85 (74-106) mg/dL Calcium 8.2 L (8.5-10.1) mg/dL Total Bilirubin 0.4 (0.2-1.0) mg/dL AST 26 (15-37) U/L ALT 43 (12-78) U/L Alkaline Phosphatase 53 (46-116) U/L Troponin I 0.114 H* (0.000-0.056) ng/mL Total Protein 4.4 L (6.4-8.2) g/dL Albumin 2.3 L (3.4-5.0) g/dL Globulin 2.1 L (2.3-3.5) g/dL Albumin/Globulin Ratio 1.1 L (1.2-2.2) Urine Color Urine Appearance Urine pH (4.5-8.0) Ur Specific [place] (1.008-1.030) Urine Protein (NEGATIVE) mg/dL Urine Glucose (UA) (NEGATIVE) mg/dL Urine Ketones (NEGATIVE) mg/dL Urine Occult Blood (NEGATIVE) Urine Nitrite (NEGATIVE) Urine Bilirubin (NEGATIVE) Urine Urobilinogen (NORMAL) mg/dL Ur Leukocyte Esterase (NEGATIVE) Urine RBC (0-5) Urine WBC (0-5) Ur Epithelial Cells Amorphous Sediment Urine Bacteria Urine Mucus Urine Other Result Diagrams: 05/03/17 04:30 05/03/17 04:30 *Q Meaningful Use (ADM) - VTE *Q VTE Criteria *Q: - Stroke *Q Stroke Criteria *Q: - AMI *Q AMI Criteria *Q: - Problem List (1) Atrial fibrillation with RVR SNOMED Code(s): 589056189586366 ICD Code: I48.91 - UNSPECIFIED ATRIAL FIBRILLATION Status: Acute Current Visit: Yes (2) Anticoagulant not tolerated SNOMED Code(s): 888823900 ICD Code: KUW1187 - Status: Acute Current Visit: Yes (3) S/P AVR (aortic valve replacement) Status: Acute Current Visit: Yes (4) Hypertension SNOMED Code(s): 95712397 ICD Code: I10 - ESSENTIAL (PRIMARY) HYPERTENSION Status: Acute Current Visit: Yes (5) Hyperlipemia SNOMED Code(s): 46163007 ICD Code: E78.5 - HYPERLIPIDEMIA, UNSPECIFIED Status: Acute Current Visit : Yes (6) IgA nephropathy SNOMED Code(s): 521258586 ICD Code: N02.8 - RECURRENT AND PERSISTENT HEMATURIA W OTH MORPHOLOGIC CHANGES Status: Acute Current Visit: Yes (7) Chronic kidney disease SNOMED Code(s): 723089336 ICD Code: N18.9 - CHRONIC KIDNEY DISEASE, UNSPECIFIED Status: Acute Current Visit: Yes (8) Iron deficiency anemia SNOMED Code(s): 20018286 ICD Code: D50.9 - IRON DEFICIENCY ANEMIA, UNSPECIFIED Status: Acute Current Visit: Yes (9) Irritable bowel syndrome SNOMED Code(s): 76930261 ICD Code: K58.9 - IRRITABLE BOWEL SYNDROME WITHOUT DIARRHEA Status: Acute Current Visit: Yes (10) Chronic constipation SNOMED Code(s): 411817029 ICD Code: K59.09 - OTHER CONSTIPATION Status: Acute Current Visit: Yes (11) Anxiety and depression SNOMED Code(s): 137355171 ICD Code: F41.8 - OTHER SPECIFIED ANXIETY DISORDERS Status: Acute Current Visit: Yes (12) CHF (congestive heart failure) SNOMED Code(s): 79980146 ICD Code: I50.9 - HEART FAILURE, UNSPECIFIED Status: Acute Current Visit : Yes (13) COPD (chronic obstructive pulmonary disease) SNOMED Code(s): 27676825 ICD Code: J44.9 - CHRONIC OBSTRUCTIVE PULMONARY DISEASE, UNSPECIFIED Status : Chronic Current Visit: No Qualifiers: COPD type: emphysema Emphysema type: unspecified Qualified Code(s): J43.9 - Emphysema, unspecified (14) Fibromyalgia SNOMED Code(s): 634651900 ICD Code: M79.7 - FIBROMYALGIA Status: Chronic Current Visit: No (15) History of coronary artery bypass graft x 1 SNOMED Code(s): 394199651 ICD Code: Z95.1 - PRESENCE OF AORTOCORONARY BYPASS GRAFT Status: Chronic Current Visit: No Problem List Initiated/Reviewed/Updated: Yes Orders Last 24hrs: Active Orders 24 hr Category Date Time Status Communication Order [RC] ASDIRECTED Care 04/30/17 03:18 Active Communication Order [RC] ASDIRECTED Care 04/30/17 04:11 Active CULTURE URINE [RM] Stat Lab 04/30/17 05:15 Received FOLIC ACID [CHEM] Routine Lab 04/30/17 06:00 Received IRON/TIBC [CHEM] Routine Lab 04/30/17 06:00 Received LACTATE DEHYDROGENASE,LDH [CHEM] Routine Lab 04/30/17 06:00 Received PATHOLOGIST'S DIFFERENTIAL [REF] Routine Lab 04/30/17 06:00 Received RED BLOOD CELLS LP [BBK] Routine Lab 04/30/17 06:00 Received TYPE AND SCREEN [BBK] Routine Lab 04/30/17 06:00 Received VITAMIN B12 [CHEM] Routine Lab 04/30/17 06:00 Received Diltiazem IR [Cardizem] Med 04/30/17 10:00 Active 15 mg PO Q6HR Heparin Sodium Med 04/30/17 12:00 Active 5,000 units SUBCUT Q8H Sodium Chloride 0.9% [Normal Saline] 1,000 ml Med 04/30/17 02:30 Active IV ASDIRECTED Transfuse Red Blood Cells [COMM] Urgent Oth 04/30/17 09:06 Ordered Medication Orders Acetaminophen (Tylenol) 650 mg PO Q4H PRN PRN Reason: Pain (Mild 1-3)/fever Albuterol (Proventil Neb Soln) 2.5 mg NEB Q4H PRN PRN Reason: Shortness Of Breath/wheezing Diltiazem HCl (Cardizem) 15 mg PO Q6HR JUSTINE Heparin Sodium (Porcine) (Heparin Sodium) 5,000 units SUBCUT Q8H JUSTINE Sodium Chloride (Normal Saline) 1,000 mls @ 0 mls/hr IV ASDIRECTED JUSTINE PRN Reason: KVO Last Admin: 04/30/17 02:57 Dose: 25 mls/hr Lorazepam (Ativan) 1 mg IV Q6H PRN PRN Reason: Nausea/Vomiting Morphine Sulfate (Morphine) 2 mg IVPUSH Q2H PRN PRN Reason: Pain (severe 7-10) Promethazine HCl (Phenergan) 25 mg PO Q6H PRN PRN Reason: Nausea able to take PO Assessment/Plan Comment:: 72 -year-old female with past medical history of atrial fibrillation with rate control and aspirin 81 mg daily, hypertension, CHF with diastolic, systolic heart failure with ejection fraction of 45-50%, CAD status post CABG, hyperlipidemia, IgA nephropathy was on dialysis 2 weeks ago, status post aortic wall replacement, COPD, adrenal carcinoma, fibromyalgia, anxiety, depression, intermittent episodes of upper GI bleed, cutaneous vasculitis, chronic constipation, irritable bowel syndrome came to the ED with the complaining of chest pain and diagnosed with atrial fibrillation and RVR admitted into intensive care for further management. (1) Atrial fibrillation with RVR (2) Anticoagulant not tolerated (3) S/P AVR (aortic valve replacement) (4) Hypertension (5) Hyperlipemia (12) CHF (congestive heart failure) (15) History of coronary artery bypass graft x 1 EKG showed atrial fibrillation and RVR Blood pressures are 99 systolic Patient received metoprolol 1 dose, failed to control the heart rate Will give one dose of 0.125 mg digoxin IV push We'll see her progress Unknown etiology Patient has history of status post AVR not on any anti-cognition due to anemia and recurrent bleed Patient hemoglobin is at baseline With supplement Iron as needed CBC, CMP tomorrow (6) IgA nephropathy (7) Chronic kidney disease Patient has history of IgA nephropathy and received dialysis until 2 weeks ago Patient creatinine is elevated 2.1 Will continue diuresis as needed Will continue home blood pressure medication and diuresis medication at this point CBC CMP tomorrow (8) Iron deficiency anemia Will follow daily hemoglobins Patient has recurrent upper GI bleed in the past (13) COPD (chronic obstructive pulmonary disease) (9) Irritable bowel syndrome (10) Chronic constipation (11) Anxiety and depression (14) Fibromyalgia Will continue home medications DVT prophylaxis heparin subcutaneous 8 hourly GI prophylaxis pantoprazole IV once daily CODE STATUS full code IV fluids not needed Diet nothing by mouth for now
[2017-04-30] MEDS ORDERED: Diltiazem IR 30 MG Tab PO SCH ×2 (10:00→13:53)
--- NOTE | 2017-04-30 10:40 | PCM.PN ---
- General Info Date of Service: 04/30/17 Subjective Update: Ms. Hidalgo is a 72-year-old woman who is admitted last night through the emergency department with atrial fibrillation and rapid ventricular response. She has a known history of coronary artery disease as well as underlying congestive heart failure. Complicating this is a history of chronic kidney disease stage IV. She reports that she been experiencing some symptoms of chest pain over the past 2 days, occurring at rest and not associated with position or activity. Also felt as though her heart were beating very rapidly and on evaluation in the emergency department was found to have atrial fibrillation with rapid ventricular response. She was admitted to the hospital and started on IV diltiazem continuous infusion which has resulted in good rate control. She denies any further symptoms of chest pain or pressure but has had a slight elevation in troponin level, likely secondary to rapid heart rate and decreased renal function. Hemoglobin was low on admission but now is dropped to 7.2 with some hydration through the night. She does have a history of chronic anemia related to her underlying kidney disease. - Patient Data Vitals - Most Recent: Last Vital Signs Temp 97.6 F 04/30/17 10:29 Pulse 111 H 04/30/17 10:29 Resp 16 04/30/17 10:29 BP 126/42 L 04/30/17 10:29 Pulse Ox 95 04/30/17 08:51 Weight - Most Recent: 139 lb I&O - Last 24 Hours: Intake & Output 04/29/17 04/30/17 04/30/17 22:59 06:59 14:59 Intake Total 88 0 Output Total 450 600 Balance -362 -600 Lab Results Last 24 Hours: Laboratory Results - last 24 hr 04/30/17 04/30/17 04/30/17 Range/Units 01:35 05:15 05:59 WBC 8.3 (4.5-11.0) K/uL RBC 2.53 L (3.30-5.50) M/uL Hgb 7.2 L (12.0-15.0) g/dL Hct 25.3 L (36.0-48.0) % MCV 100 H (80-98) fL MCH 29 (27-31) pg MCHC 29 L (32-36) % Plt Count 139 L (150-400) K/uL Neut % (Auto) 72 H (36-66) % Lymph % (Auto) 19 L (24-44) % [place] % (Auto) 8 H (2-6) % Eos % (Auto) 1 L (2-4) % Baso % (Auto) 0 (0-1) % Percent Retic (0.5-1.5) % Sodium (140-148) mmol/L Potassium (3.6-5.2) mmol/L Chloride (100-108) mmol/L Carbon Dioxide (21-32) mmol/L Anion Gap (5.0-14.0) mmol/L BUN (7-18) mg/dL Creatinine (0.6-1.0) mg/dL Est Cr Clr Drug Dosing mL/min Estimated GFR (MDRD) (>60) Glucose (74-106) mg/dL Calcium (8.5-10.1) mg/dL Iron (50-170) ug/dL TIBC (250-450) ug/dl % Saturation (20-55) % Total Bilirubin (0.2-1.0) mg/dL AST (15-37) U/L ALT (12-78) U/L Alkaline Phosphatase (46-116) U/L Lactate Dehydrogenase (82-234) U/L Troponin I 0.107 H* (0.000-0.056) ng/mL Total Protein (6.4-8.2) g/dL Albumin (3.4-5.0) g/dL Globulin (2.3-3.5) g/dL Albumin/Globulin Ratio (1.2-2.2) Vitamin B12 (193-986) pg/ml Folate (8.6-58.9) ng/ml Urine Color Yellow Urine Appearance Slightly cloudy Urine pH 5.0 (4.5-8.0) Ur Specific [place] 1.015 (1.008-1.030) Urine Protein 30 H (NEGATIVE) mg/dL Urine Glucose (UA) Normal (NEGATIVE) mg/dL Urine Ketones Negative (NEGATIVE) mg/dL Urine Occult Blood Moderate (NEGATIVE) Urine Nitrite Negative (NEGATIVE) Urine Bilirubin Negative (NEGATIVE) Urine Urobilinogen Normal (NORMAL) mg/dL Ur Leukocyte Esterase Negative (NEGATIVE) Urine RBC 0-5 (0-5) Urine WBC 0-5 (0-5) Ur Epithelial Cells Few Amorphous Sediment Not seen Urine Bacteria Not seen Urine Mucus Not seen Urine Other Blood Type Gel Antibody Screen Crossmatch 04/30/17 04/30/17 04/30/17 Range/Units 05:59 05:59 06:00 WBC (4.5-11.0) K/uL RBC (3.30-5.50) M/uL Hgb (12.0-15.0) g/dL Hct (36.0-48.0) % MCV (80-98) fL MCH (27-31) pg MCHC (32-36) % Plt Count (150-400) K/uL Neut % (Auto) (36-66) % Lymph % (Auto) (24-44) % [place] % (Auto) (2-6) % Eos % (Auto) (2-4) % Baso % (Auto) (0-1) % Percent Retic 8.5 H (0.5-1.5) % Sodium 138 L (140-148) mmol/L Potassium 3.6 (3.6-5.2) mmol/L Chloride 101 (100-108) mmol/L Carbon Dioxide 33 H (21-32) mmol/L Anion Gap 7.6 (5.0-14.0) mmol/L BUN 79 H* (7-18) mg/dL Creatinine 2.0 H (0.6-1.0) mg/dL Est Cr Clr Drug Dosing 17.99 mL/min Estimated GFR (MDRD) 24 L (>60) Glucose 85 (74-106) mg/dL Calcium 8.2 L (8.5-10.1) mg/dL Iron (50-170) ug/dL TIBC (250-450) ug/dl % Saturation (20-55) % Total Bilirubin 0.4 (0.2-1.0) mg/dL AST 26 (15-37) U/L ALT 43 (12-78) U/L Alkaline Phosphatase 53 (46-116) U/L Lactate Dehydrogenase (82-234) U/L Troponin I 0.114 H* (0.000-0.056) ng/mL Total Protein 4.4 L (6.4-8.2) g/dL Albumin 2.3 L (3.4-5.0) g/dL Globulin 2.1 L (2.3-3.5) g/dL Albumin/Globulin Ratio 1.1 L (1.2-2.2) Vitamin B12 (193-986) pg/ml Folate (8.6-58.9) ng/ml Urine Color Urine Appearance Urine pH (4.5-8.0) Ur Specific [place] (1.008-1.030) Urine Protein (NEGATIVE) mg/dL Urine Glucose (UA) (NEGATIVE) mg/dL Urine Ketones (NEGATIVE) mg/dL Urine Occult Blood (NEGATIVE) Urine Nitrite (NEGATIVE) Urine Bilirubin (NEGATIVE) Urine Urobilinogen (NORMAL) mg/dL Ur Leukocyte Esterase (NEGATIVE) Urine RBC (0-5) Urine WBC (0-5) Ur Epithelial Cells Amorphous Sediment Urine Bacteria Urine Mucus Urine Other Blood Type Gel Antibody Screen Crossmatch 04/30/17 04/30/17 04/30/17 Range/Units 06:00 06:00 06:00 WBC (4.5-11.0) K/uL RBC (3.30-5.50) M/uL Hgb (12.0-15.0) g/dL Hct (36.0-48.0) % MCV (80-98) fL MCH (27-31) pg MCHC (32-36) % Plt Count (150-400) K/uL Neut % (Auto) (36-66) % Lymph % (Auto) (24-44) % [place] % (Auto) (2-6) % Eos % (Auto) (2-4) % Baso % (Auto) (0-1) % Percent Retic (0.5-1.5) % Sodium (140-148) mmol/L Potassium (3.6-5.2) mmol/L Chloride (100-108) mmol/L Carbon Dioxide (21-32) mmol/L Anion Gap (5.0-14.0) mmol/L BUN (7-18) mg/dL Creatinine (0.6-1.0) mg/dL Est Cr Clr Drug Dosing mL/min Estimated GFR (MDRD) (>60) Glucose (74-106) mg/dL Calcium (8.5-10.1) mg/dL Iron 22 L (50-170) ug/dL TIBC 321 (250-450) ug/dl % Saturation 7 L (20-55) % Total Bilirubin (0.2-1.0) mg/dL AST (15-37) U/L ALT (12-78) U/L Alkaline Phosphatase (46-116) U/L Lactate Dehydrogenase 482 H (82-234) U/L Troponin I (0.000-0.056) ng/mL Total Protein (6.4-8.2) g/dL Albumin (3.4-5.0) g/dL Globulin (2.3-3.5) g/dL Albumin/Globulin Ratio (1.2-2.2) Vitamin B12 615 (193-986) pg/ml Folate > 20.0 (8.6-58.9) ng/ml Urine Color Urine Appearance Urine pH (4.5-8.0) Ur Specific [place] (1.008-1.030) Urine Protein (NEGATIVE) mg/dL Urine Glucose (UA) (NEGATIVE) mg/dL Urine Ketones (NEGATIVE) mg/dL Urine Occult Blood (NEGATIVE) Urine Nitrite (NEGATIVE) Urine Bilirubin (NEGATIVE) Urine Urobilinogen (NORMAL) mg/dL Ur Leukocyte Esterase (NEGATIVE) Urine RBC (0-5) Urine WBC (0-5) Ur Epithelial Cells Amorphous Sediment Urine Bacteria Urine Mucus Urine Other Blood Type O POSITIVE Gel Antibody Screen Negative Crossmatch See Detail Med Orders - Current: Current Medications Acetaminophen (Tylenol) 650 mg PO Q4H PRN PRN Reason: Pain (Mild 1-3)/fever Albuterol (Proventil Neb Soln) 2.5 mg NEB Q4H PRN PRN Reason: Shortness Of Breath/wheezing Diltiazem HCl (Cardizem) 15 mg PO Q6HR [facility] Last Admin: 04/30/17 10:32 Dose: 15 mg Heparin Sodium (Porcine) (Heparin Sodium) 5,000 units SUBCUT Q8H [facility] Sodium Chloride (Normal Saline) 1,000 mls @ 0 mls/hr IV ASDIRECTED [facility] PRN Reason: KVO Last Admin: 04/30/17 02:57 Dose: 25 mls/hr Ferric Sodium Gluconate Complex 250 mg/ Sodium Chloride 120 mls @ 50 mls/hr IV ONETIME ONE Stop: 04/30/17 12:54 Ferric Sodium Gluconate Complex 250 mg/ Sodium Chloride 120 mls @ 50 mls/hr IV ONETIME ONE Stop: 05/01/17 11:23 Lorazepam (Ativan) 1 mg IV Q6H PRN PRN Reason: Nausea/Vomiting Melatonin (Melatonin) 9 mg PO BEDTIME [facility] Morphine Sulfate (Morphine) 2 mg IVPUSH Q2H PRN PRN Reason: Pain (severe 7-10) Promethazine HCl (Phenergan) 25 mg PO Q6H PRN PRN Reason: Nausea able to take PO Discontinued Medications Hydrocodone Bitart/Acetaminophen ([place] 325-5 Mg) 1 tab PO ONETIME ONE Stop: 04/29/17 23:13 Last Admin: 04/29/17 23:34 Dose: 1 tab Digoxin (Lanoxin) 125 mcg IVPUSH ONETIME ONE Stop: 04/30/17 03:13 Last Admin: 04/30/17 03:26 Dose: 125 mcg Diltiazem HCl (Diltiazem) 10 mg IVPUSH ONETIME ONE Stop: 04/30/17 00:14 Last Admin: 04/30/17 00:57 Dose: Not Given Furosemide (Lasix) 40 mg IVPUSH ONETIME ONE Stop: 04/30/17 00:50 Last Admin: 04/30/17 00:54 Dose: 40 mg Heparin Sodium (Porcine) (Heparin Sodium) 5,000 units IVPUSH Q8H [facility] Last Admin: 04/30/17 03:37 Dose: Not Given Heparin Sodium (Porcine) (Heparin Sodium) 5,000 units SUBCUT Q8H [facility] Last Admin: 04/30/17 03:27 Dose: 5,000 units Diltiazem HCl 100 mg/ Sodium (Chloride) 100 mls @ 5 mls/hr IV TITRATE JUSTINE; 5 MG /HR PRN Reason: Protocol Last Admin: 04/30/17 02:27 Dose: 2.5 mg/hr, 2.5 mls/hr Metoprolol Tartrate (Lopressor) 25 mg PO ONETIME ONE Stop: 04/30/17 00:47 Last Admin: 04/30/17 00:52 Dose: 25 mg - Exam Quality Assessment: Supplemental Oxygen, DVT Prophylaxis General: Alert, Oriented, Cooperative, No Acute Distress Lungs: Clear to Auscultation, Normal Respiratory Effort Cardiovascular: Regular Rate, No Murmurs, Irregular Rhythm GI/Abdominal Exam: Soft, Non-Tender, No Organomegaly, No Distention Extremities: Non-Tender, No Pedal Edema Skin: Warm, Dry, Intact - Problem List Review Problem List Initiated/Reviewed/Updated: Yes - My Orders Last 24 Hours: My Active Orders 04/30/17 06:00 PATHOLOGIST'S DIFFERENTIAL [REF] Routine 04/30/17 09:06 Transfuse Red Blood Cells [COMM] Urgent 04/30/17 10:00 Diltiazem IR [Cardizem] 15 mg PO Q6HR 04/30/17 10:28 Echo Comp wo Cont [US] Urgent HEMOGLOBIN [HEME] Routine 04/30/17 10:31 Sodium Ferric Gluconate Cmplex [Ferrlecit IV] 250 mg Sodium Chloride 0.9% [ Normal Saline] 100 ml IV ONETIME 04/30/17 21:00 Melatonin 9 mg PO BEDTIME 04/30/17 Breakfast Consistent Carbohydrate Diet [DIET] 05/01/17 05:00 BASIC METABOLIC PANEL,BMP [CHEM] Timed CBC WITH AUTO DIFF [HEME] Timed INR,PT,PROTHROMBIN TIME [COAG] Timed MAGNESIUM [CHEM] Timed 05/01/17 09:00 Sodium Ferric Gluconate Cmplex [Ferrlecit IV] 250 mg Sodium Chloride 0.9% [ Normal Saline] 100 ml IV ONETIME - Plan Plan:: ASSESSMENT AND PLAN ATRIAL FIBRILLATION WITH RAPID VENTRICULAR RESPONSE-she does report previous history of transient atrial fibrillation, not currently on anticoagulation. She has felt improved since admission with rate control, blood pressure has been somewhat borderline with diltiazem. -Discontinue IV diltiazem -Not a candidate for cardioversion, because of duration of atrial fibrillation -Hold on warfarin therapy until anemia has been managed -Transitioned to oral diltiazem today, 15 mg by mouth every 6 hours -Echocardiogram today CHRONIC ANEMIA-likely secondary to chronic kidney disease -Iron low we'll give IV iron supplement today and tomorrow -Transfuse one unit of red blood cells now -Follow-up hemoglobin later today and in a.m. ELEVATED TROPONIN-likely secondary to rapid heart rate and chronic kidney disease, demand ischemia -Follow-up troponin level in a.m. -Consider Cardiolite study given recent history of chest pain and known underlying coronary artery disease CHRONIC KIDNEY DISEASE STAGE IV -C monitor urine output and renal function during hospital stay MAINTENANCE ISSUES -DVT prophylaxis; Lovenox 30 mg subcutaneous daily -GI prophylaxis; not indicated -Richards catheter; not required -Nutrition; regular diet -Nicotine dependence; not required CODE STATUS-FULL CODE ADMISSION STATUS-patient will be admitted to inpatient status, expect at least a 2 night hospital stay for evaluation and management of problems as outlined above. At the time of this admission I do not reasonably expected evaluation and management of this problem will require more than a 96 hour hospital stay. DISPOSITION-anticipate discharge to home after the hospital stay. PRIMARY CARE PROVIDER-Dr. Begum
[2017-04-30] MEDS: Enoxaparin 30 MG/0.3 ML Syringe SUBCUT SCH (12:46)
[2017-04-30] MEDS ORDERED: Sodium Ferric Gluconate Cmplex 250 MG in Sodium Chloride 0.9% 100 ML IV ONE (13:00)
[2017-04-30] MEDS: Albuterol/Ipratropium 3.0-0.5 MG/3 ML Neb Soln INH SCH ×2 (14:48→21:06)
[2017-04-30] MEDS: Metoprolol Tartrate 50 MG Tab PO SCH ×2 (14:55→21:07)
[2017-04-30] MEDS: Diltiazem IR 30 MG Tab PO SCH ×2 (15:54→21:07)
[2017-04-30] MEDS: Pantoprazole 40 MG Tab.CR PO SCH (15:55)
[2017-04-30] MEDS: Acetaminophen 325 MG Tab PO PRN (15:57)
[2017-04-30] MEDS ORDERED: Albuterol 8 GM Inhaler INH PRN (16:00)
[2017-04-30] MEDS: Morphine 2 MG/ML Syringe IVPUSH PRN ×3 (16:28→23:30)
[2017-04-30] MEDS: LORazepam 2 MG/ML MDV IV PRN (16:38)
[2017-04-30] MEDS: Melatonin 3 MG Tab PO SCH (21:06)
[2017-04-30] MEDS: Rosuvastatin 10 MG Tab PO SCH (21:07)
[2017-05-01] MEDS: Diltiazem IR 30 MG Tab PO SCH ×2 (03:16→09:06)
[2017-05-01] MEDS: Albuterol/Ipratropium 3.0-0.5 MG/3 ML Neb Soln INH SCH ×4 (07:01→20:53)
[2017-05-01] MEDS: Pantoprazole 40 MG Tab.CR PO SCH (08:02)
[2017-05-01] MEDS: Metoprolol Tartrate 50 MG Tab PO SCH ×2 (08:21→20:53)
[2017-05-01] MEDS: Enoxaparin 30 MG/0.3 ML Syringe SUBCUT SCH (08:22)
[2017-05-01] MEDS: Aspirin 81 MG Tab.EC PO SCH (08:22)
[2017-05-01] MEDS ORDERED: Furosemide 100 MG/10 ML SDV IVPUSH ONE (08:30)
[2017-05-01] MEDS ORDERED: Sodium Ferric Gluconate Cmplex 250 MG in Sodium Chloride 0.9% 100 ML IV ONE (09:00)
[2017-05-01] MEDS: LORazepam 2 MG/ML MDV IV PRN (09:36)
[2017-05-01] MEDS ORDERED: LORazepam 2 MG/ML MDV IV PRN (09:45)
--- NOTE | 2017-05-01 09:53 | PCM.PN ---
- General Info Date of Service: 05/01/17 Subjective Update: Ms. Hidalgo has had ongoing difficulty with shortness of breath and intermittent episodes of chest pain. Heart rate has been intermittently elevated but did seem to improve following diuresis yesterday afternoon, this morning it has been consistently elevated. Unfortunately we were unable to obtain echocardiogram yesterday. Hemoglobin has improved following transfusion of one unit of red blood cells in her renal function has remained stable. Functional Status: Reports: Tolerating Diet, Urinating - Review of Systems General: Reports: Weakness. Denies: Fever, Chills Pulmonary: Reports: Shortness of Breath. Denies: Cough, Sputum, Hemoptysis, Wheezing Cardiovascular: Reports: Chest Pain, Palpitations, Dyspnea on Exertion, Edema. Denies: Orthopnea, PND, Lightheadedness Gastrointestinal: Reports: No Symptoms Skin: Reports: Other (Venous stasis ulcerations, present on admission) - Patient Data Vitals - Most Recent: Last Vital Signs Temp 98.2 F 05/01/17 07:00 Pulse 102 H 05/01/17 08:21 Resp 24 H 05/01/17 07:00 BP 118/50 L 05/01/17 08:21 Pulse Ox 94 L 05/01/17 07:00 Weight - Most Recent: 139 lb I&O - Last 24 Hours: Intake & Output 04/30/17 05/01/17 05/01/17 22:59 06:59 14:59 Intake Total 1870 360 Output Total 1400 900 Balance 470 -540 Lab Results Last 24 Hours: Laboratory Results - last 24 hr 04/30/17 04/30/17 04/30/17 Range/Units 06:00 06:00 13:30 WBC (4.5-11.0) K/uL RBC (3.30-5.50) M/uL Hgb 9.4 L D (12.0-15.0) g/dL Hct (36.0-48.0) % MCV (80-98) fL MCH (27-31) pg MCHC (32-36) % Plt Count (150-400) K/uL Neut % (Auto) (36-66) % Lymph % (Auto) (24-44) % [place] % (Auto) (2-6) % Eos % (Auto) (2-4) % Baso % (Auto) (0-1) % PT (9.5-12.0) sec INR (0.80-1.20) Sodium (140-148) mmol/L Potassium (3.6-5.2) mmol/L Chloride (100-108) mmol/L Carbon Dioxide (21-32) mmol/L Anion Gap (5.0-14.0) mmol/L BUN (7-18) mg/dL Creatinine (0.6-1.0) mg/dL Est Cr Clr Drug Dosing mL/min Estimated GFR (MDRD) (>60) Glucose (74-106) mg/dL Calcium (8.5-10.1) mg/dL Magnesium (1.8-2.4) mg/dL Lactate Dehydrogenase 482 H (82-234) U/L Troponin I (0.000-0.056) ng/mL Vitamin B12 615 (193-986) pg/ml Folate > 20.0 (8.6-58.9) ng/ml Blood Type O POSITIVE Gel Antibody Screen Negative Crossmatch See Detail 05/01/17 05/01/17 05/01/17 Range/Units 05:25 05:25 05:25 WBC 8.9 (4.5-11.0) K/uL RBC 3.10 L (3.30-5.50) M/uL Hgb 9.1 L (12.0-15.0) g/dL Hct 31.0 L (36.0-48.0) % MCV 100 H (80-98) fL MCH 29 (27-31) pg MCHC 29 L (32-36) % Plt Count 152 (150-400) K/uL Neut % (Auto) 76 H (36-66) % Lymph % (Auto) 15 L (24-44) % [place] % (Auto) 6 (2-6) % Eos % (Auto) 2 (2-4) % Baso % (Auto) 0 (0-1) % PT 11.8 (9.5-12.0) sec INR 1.10 (0.80-1.20) Sodium 143 (140-148) mmol/L Potassium 3.7 (3.6-5.2) mmol/L Chloride 104 (100-108) mmol/L Carbon Dioxide 32 (21-32) mmol/L Anion Gap 7.2 (5.0-14.0) mmol/L BUN 63 H (7-18) mg/dL Creatinine 1.8 H (0.6-1.0) mg/dL Est Cr Clr Drug Dosing 19.99 mL/min Estimated GFR (MDRD) 28 L (>60) Glucose 119 H (74-106) mg/dL Calcium 8.1 L (8.5-10.1) mg/dL Magnesium 1.9 (1.8-2.4) mg/dL Lactate Dehydrogenase (82-234) U/L Troponin I 0.119 H* (0.000-0.056) ng/mL Vitamin B12 (193-986) pg/ml Folate (8.6-58.9) ng/ml Blood Type Gel Antibody Screen Crossmatch [place] Results Last 24 Hours: Microbiology 04/30/17 05:15 Urine Culture - Preliminary Urine, Clean Catch NO GROWTH AFTER 1 DAY Med Orders - Current: Current Medications Acetaminophen (Tylenol) 650 mg PO Q4H PRN PRN Reason: Pain (Mild 1-3)/fever Last Admin: 04/30/17 15:57 Dose: 650 mg Albuterol (Proventil Neb Soln) 2.5 mg NEB Q4H PRN PRN Reason: Shortness Of Breath/wheezing Albuterol (Ventolin Hfa) 0 gm INH QID PRN PRN Reason: SHORTNESS OF BREATH Albuterol/Ipratropium (Duoneb 3.0-0.5 Mg/3 Ml) 3 ml INH QIDRT [facility] Last Admin: 05/01/17 07:01 Dose: 3 ml Aspirin (Halfprin) 81 mg PO DAILY [facility] Last Admin: 05/01/17 08:22 Dose: 81 mg Diltiazem HCl (Cardizem Cd) 120 mg PO DAILY [facility] Enoxaparin Sodium (Lovenox) 30 mg SUBCUT DAILY [facility] Last Admin: 05/01/17 08:22 Dose: 30 mg Ferric Sodium Gluconate Complex 250 mg/ Sodium Chloride 120 mls @ 50 mls/hr IV ONETIME ONE Stop: 05/01/17 11:23 Last Admin: 05/01/17 09:37 Dose: 50 mls/hr Isosorbide Mononitrate (Imdur) 30 mg PO DAILY [facility] Lorazepam (Ativan) 0.5 mg IV Q4H PRN PRN Reason: Anxiety Melatonin (Melatonin) 9 mg PO BEDTIME [facility] Last Admin: 04/30/17 21:06 Dose: 9 mg Metoprolol Tartrate (Lopressor) 50 mg PO BID [facility] Last Admin: 05/01/17 08:21 Dose: 50 mg Morphine Sulfate (Morphine) 2 mg IVPUSH Q2H PRN PRN Reason: Pain (severe 7-10) Last Admin: 04/30/17 23:30 Dose: 2 mg Pantoprazole Sodium (Protonix) 40 mg PO ACBREAKFAST [facility] Last Admin: 05/01/17 08:02 Dose: 40 mg Promethazine HCl (Phenergan) 25 mg PO Q6H PRN PRN Reason: Nausea able to take PO Rosuvastatin Calcium (Crestor) 5 mg PO BEDTIME [facility] Last Admin: 04/30/17 21:07 Dose: 5 mg Discontinued Medications Hydrocodone Bitart/Acetaminophen ([place] 325-5 Mg) 1 tab PO ONETIME ONE Stop: 04/29/17 23:13 Last Admin: 04/29/17 23:34 Dose: 1 tab Digoxin (Lanoxin) 125 mcg IVPUSH ONETIME ONE Stop: 04/30/17 03:13 Last Admin: 04/30/17 03:26 Dose: 125 mcg Diltiazem HCl (Diltiazem) 10 mg IVPUSH ONETIME ONE Stop: 04/30/17 00:14 Last Admin: 04/30/17 00:57 Dose: Not Given Diltiazem HCl (Cardizem) 15 mg PO Q6HR [facility] Last Admin: 04/30/17 10:32 Dose: 15 mg Diltiazem HCl (Cardizem) 30 mg PO Q6HR [facility] Last Admin: 05/01/17 09:06 Dose: 30 mg Furosemide (Lasix) 40 mg IVPUSH ONETIME ONE Stop: 04/30/17 00:50 Last Admin: 04/30/17 00:54 Dose: 40 mg Furosemide (Lasix) 80 mg IVPUSH ONETIME ONE Stop: 04/30/17 19:00 Last Admin: 04/30/17 19:11 Dose: 80 mg Furosemide (Lasix) 80 mg IVPUSH ONETIME ONE Stop: 05/01/17 08:31 Last Admin: 05/01/17 08:20 Dose: 80 mg Heparin Sodium (Porcine) (Heparin Sodium) 5,000 units IVPUSH Q8H [facility] Last Admin: 04/30/17 03:37 Dose: Not Given Heparin Sodium (Porcine) (Heparin Sodium) 5,000 units SUBCUT Q8H [facility] Last Admin: 04/30/17 03:27 Dose: 5,000 units Heparin Sodium (Porcine) (Heparin Sodium) 5,000 units SUBCUT Q8H [facility] Diltiazem HCl 100 mg/ Sodium (Chloride) 100 mls @ 5 mls/hr IV TITRATE [facility]; 5 MG /HR PRN Reason: Protocol Last Admin: 04/30/17 02:27 Dose: 2.5 mg/hr, 2.5 mls/hr Sodium Chloride (Normal Saline) 1,000 mls @ 0 mls/hr IV ASDIRECTED [facility] PRN Reason: KVO Last Admin: 04/30/17 02:57 Dose: 25 mls/hr Ferric Sodium Gluconate Complex 250 mg/ Sodium Chloride 120 mls @ 50 mls/hr IV ONETIME ONE Stop: 04/30/17 15:23 Last Admin: 04/30/17 12:46 Dose: 50 mls/hr Lorazepam (Ativan) 1 mg IV Q6H PRN PRN Reason: Nausea/Vomiting Last Admin: 05/01/17 09:36 Dose: 1 mg Metoprolol Tartrate (Lopressor) 25 mg PO ONETIME ONE Stop: 04/30/17 00:47 Last Admin: 04/30/17 00:52 Dose: 25 mg - Exam Quality Assessment: Supplemental Oxygen, DVT Prophylaxis General: Alert Lungs: Normal Respiratory Effort, Decreased Breath Sounds, Rales. No: Rhonchi, Rub, Wheezing Cardiovascular: No Murmurs, Irregular Rhythm, Tachycardia. No: Bradycardia GI/Abdominal Exam: Soft, Non-Tender, No Organomegaly, No Distention Extremities: Non-Tender, Other (Bilateral venous stasis ulcerations) Skin: Warm, Dry, Intact - Problem List Review Problem List Initiated/Reviewed/Updated: Yes - My Orders Last 24 Hours: My Active Orders 04/30/17 09:06 Transfuse Red Blood Cells [COMM] Urgent 04/30/17 10:28 Echo Comp wo Cont [US] Urgent 04/30/17 12:00 Enoxaparin [Lovenox] 30 mg SUBCUT DAILY 04/30/17 14:00 Metoprolol Tartrate [Lopressor] 50 mg PO BID 04/30/17 15:00 Albuterol/Ipratropium [DuoNeb 3.0-0.5 MG/3 ML] 3 ml INH QIDRT 04/30/17 16:00 Albuterol [Ventolin HFA] 0 gm INH QID PRN Pantoprazole [ProTONIX] 40 mg PO ACBREAKFAST 04/30/17 18:59 Convert IV to Saline Lock [OM.PC] Routine 04/30/17 21:00 Melatonin 9 mg PO BEDTIME Rosuvastatin [Crestor] 5 mg PO BEDTIME 05/01/17 09:00 Aspirin [Halfprin] 81 mg PO DAILY Sodium Ferric Gluconate Cmplex [Ferrlecit IV] 250 mg Sodium Chloride 0.9% [ Normal Saline] 100 ml IV ONETIME 05/01/17 09:45 Diltiazem [Cardizem CD] 120 mg PO DAILY Isosorbide Mononitrate [Imdur] 30 mg PO DAILY LORazepam [Ativan] 0.5 mg IV Q4H PRN 05/02/17 05:00 BASIC METABOLIC PANEL,BMP [CHEM] Timed CBC WITH AUTO DIFF [HEME] Timed MAGNESIUM [CHEM] Timed - Plan Plan:: ASSESSMENT AND PLAN ATRIAL FIBRILLATION WITH RAPID VENTRICULAR RESPONSE-she does report previous history of transient atrial fibrillation, not currently on anticoagulation. Rate control has been variable now on oral medication. Rate control also seems to be significantly affected by congestive heart failure. -Not a candidate for cardioversion, because of duration of atrial fibrillation -Hold on warfarin therapy until anemia has been managed -Diltiazem CD 120 mg by mouth daily -Echocardiogram Wednesday CONGESTIVE HEART FAILURE-she has been less short of breath with diuresis and heart rate also improved swallowing diuresis -Echocardiogram as above -Daily diuretic therapy -Continue beta everett therapy -Not a candidate for CHARLIE inhibitor because of severe renal insufficiency CHRONIC hemoglobin improve following transfusion of one unit of red blood cells -Iron low we'll give IV iron supplement today -Follow-up hemoglobin in a.m. ELEVATED TROPONIN-likely secondary to rapid heart rate and chronic kidney disease, demand ischemia. She does have intermittent episodes of chest pain that seemed to occur with exertion and resolve with rest -Imdur 30 mg by mouth daily -Follow-up troponin level in a.m. -Plan for Rick scan Cardiolite study on Wednesday morning CHRONIC KIDNEY DISEASE STAGE IV-renal function has remained stable thus far and actually improved with diuresis - monitor urine output and renal function during hospital stay BILATERAL VENOUS STASIS ULCERATIONS-present on admission -Consult Dr. Cavanaugh relate this next week for assistance in management -Continue current dressing changes MAINTENANCE ISSUES -DVT prophylaxis; Lovenox 30 mg subcutaneous daily -GI prophylaxis; not indicated -Richards catheter; not required -Nutrition; regular diet -Nicotine dependence; not required CODE STATUS-FULL CODE ADMISSION STATUS-patient will be admitted to inpatient status, expect at least a 2 night hospital stay for evaluation and management of problems as outlined above. At the time of this admission I do not reasonably expected evaluation and management of this problem will require more than a 96 hour hospital stay. DISPOSITION-anticipate discharge to home after the hospital stay. PRIMARY CARE PROVIDER-Dr. Begum
[2017-05-01] MEDS ORDERED: Diltiazem 120 MG Cap.CD PO SCH (10:15)
[2017-05-01] MEDS: Isosorbide Mononitrate 30 MG Tab.ER PO SCH (10:40)
[2017-05-01] MEDS: Melatonin 3 MG Tab PO SCH (20:53)
[2017-05-01] MEDS: Rosuvastatin 10 MG Tab PO SCH (20:54)
[2017-05-01] MEDS ORDERED: Furosemide 40 MG/4 ML VIAL IVPUSH ONE (21:47)
[2017-05-01] MEDS ORDERED: Furosemide 100 MG/10 ML SDV ONE (21:50)
[2017-05-02] MEDS: Morphine 2 MG/ML Syringe IVPUSH PRN ×4 (00:31→18:17)
[2017-05-02] MEDS: Acetaminophen 325 MG Tab PO PRN ×2 (00:31→21:12)
[2017-05-02] MEDS: LORazepam 2 MG/ML MDV IV PRN ×2 (01:15→21:26)
[2017-05-02] MEDS: Albuterol/Ipratropium 3.0-0.5 MG/3 ML Neb Soln INH SCH ×4 (07:29→20:27)
[2017-05-02] MEDS: Pantoprazole 40 MG Tab.CR PO SCH (07:58)
[2017-05-02] MEDS ORDERED: Digoxin 500 MCG/2 ML Amp IVPUSH ONE (08:30)
[2017-05-02] MEDS ORDERED: Furosemide 100 MG/10 ML SDV IVPUSH ONE (08:30)
[2017-05-02] MEDS: Isosorbide Mononitrate 30 MG Tab.ER PO SCH (09:06)
[2017-05-02] MEDS: Aspirin 81 MG Tab.EC PO SCH (09:06)
[2017-05-02] MEDS: Metoprolol Tartrate 50 MG Tab PO SCH ×2 (09:07→20:26)
--- NOTE | 2017-05-02 09:07 | PCM.PN ---
- General Info Date of Service: 05/02/17 Subjective Update: Ms. Hidalgo has had ongoing difficulty with rapid heart rate despite current therapy with beta everett as well as calcium channel everett. Heart rate did seem to vary with fluid status improved following diuresis but this does not seem to be the case now over the past 24 hours. Still unable to obtain echocardiogram until tomorrow, will attempt to obtain old records from her most recent hospitalization. She is somewhat sleepy this morning and has difficulty answering questions because of sedating medications received during the night for her anxiety. Does denies significant chest pain and shortness of breath at rest today. Functional Status: Reports: Tolerating Diet, Urinating - Review of Systems General: Reports: Weakness. Denies: Fever, Chills Pulmonary: Reports: Shortness of Breath. Denies: Cough, Sputum, Hemoptysis, Wheezing Cardiovascular: Reports: Dyspnea on Exertion, Edema. Denies: Chest Pain, Orthopnea, PND, Lightheadedness Gastrointestinal: Reports: No Symptoms - Patient Data Vitals - Most Recent: Last Vital Signs Temp 98.6 F 05/02/17 08:00 Pulse 154 H 05/02/17 08:43 Resp 19 05/02/17 08:00 BP 117/66 05/02/17 08:40 Pulse Ox 93 L 05/02/17 08:00 Weight - Most Recent: 141 lb 3.2 oz I&O - Last 24 Hours: Intake & Output 05/01/17 05/02/17 05/02/17 22:59 06:59 14:59 Intake Total 240 120 Output Total 400 600 Balance -160 -480 Lab Results Last 24 Hours: Laboratory Results - last 24 hr 05/02/17 05/02/17 Range/Units 05:00 05:00 WBC 8.4 (4.5-11.0) K/uL RBC 2.99 L (3.30-5.50) M/uL Hgb 8.7 L (12.0-15.0) g/dL Hct 29.6 L (36.0-48.0) % MCV 99 H (80-98) fL MCH 29 (27-31) pg MCHC 29 L (32-36) % Plt Count 141 L (150-400) K/uL Neut % (Auto) 70 H (36-66) % Lymph % (Auto) 22 L (24-44) % [place] % (Auto) 7 H (2-6) % Eos % (Auto) 2 (2-4) % Baso % (Auto) 0 (0-1) % Sodium 143 (140-148) mmol/L Potassium 4.2 (3.6-5.2) mmol/L Chloride 105 (100-108) mmol/L Carbon Dioxide 30 (21-32) mmol/L Anion Gap 8.0 (5.0-14.0) mmol/L BUN 58 H (7-18) mg/dL Creatinine 1.9 H (0.6-1.0) mg/dL Est Cr Clr Drug Dosing 18.94 mL/min Estimated GFR (MDRD) 26 L (>60) Glucose 121 H (74-106) mg/dL Calcium 8.0 L (8.5-10.1) mg/dL Magnesium 1.8 (1.8-2.4) mg/dL Babak Results Last 24 Hours: Microbiology 04/30/17 05:15 Urine Culture - Final Urine, Clean Catch NO GROWTH AFTER 2 DAYS Med Orders - Current: Current Medications Acetaminophen (Tylenol) 650 mg PO Q4H PRN PRN Reason: Pain (Mild 1-3)/fever Last Admin: 05/02/17 00:31 Dose: 650 mg Albuterol (Proventil Neb Soln) 2.5 mg NEB Q4H PRN PRN Reason: Shortness Of Breath/wheezing Last Admin: 05/02/17 04:58 Dose: 2.5 mg Albuterol (Ventolin Hfa) 0 gm INH QID PRN PRN Reason: SHORTNESS OF BREATH Albuterol/Ipratropium (Duoneb 3.0-0.5 Mg/3 Ml) 3 ml INH QIDRT [facility] Last Admin: 05/02/17 07:29 Dose: 3 ml Amiodarone HCl (Cordarone) 150 mg IVPUSH ONETIME ONE PRN Reason: Protocol Stop: 05/02/17 09:00 Aspirin (Halfprin) 81 mg PO DAILY [facility] Last Admin: 05/01/17 08:22 Dose: 81 mg Enoxaparin Sodium (Lovenox) 30 mg SUBCUT DAILY [facility] Last Admin: 05/01/17 08:22 Dose: 30 mg Amiodarone HCl 450 mg/ (Dextrose/Water) 250 mls @ 33.33 mls/hr IV ASDIRECTED JUSTINE; 1 MG/MIN PRN Reason: Protocol Isosorbide Mononitrate (Imdur) 30 mg PO DAILY [facility] Last Admin: 05/01/17 10:40 Dose: 30 mg Lorazepam (Ativan) 1 mg IV Q4H PRN PRN Reason: Anxiety Last Admin: 05/02/17 01:15 Dose: 1 mg Melatonin (Melatonin) 9 mg PO BEDTIME [facility] Last Admin: 05/01/17 20:53 Dose: 9 mg Metoprolol Tartrate (Lopressor) 50 mg PO BID [facility] Last Admin: 05/01/17 20:53 Dose: 50 mg Morphine Sulfate (Morphine) 2 mg IVPUSH Q2H PRN PRN Reason: Pain (severe 7-10) Last Admin: 05/02/17 03:47 Dose: 2 mg Pantoprazole Sodium (Protonix) 40 mg PO ACBREAKFAST [facility] Last Admin: 05/02/17 07:58 Dose: 40 mg Promethazine HCl (Phenergan) 25 mg PO Q6H PRN PRN Reason: Nausea able to take PO Rosuvastatin Calcium (Crestor) 5 mg PO BEDTIME [facility] Last Admin: 05/01/17 20:54 Dose: 5 mg Discontinued Medications Hydrocodone Bitart/Acetaminophen ([place] 325-5 Mg) 1 tab PO ONETIME ONE Stop: 04/29/17 23:13 Last Admin: 04/29/17 23:34 Dose: 1 tab Digoxin (Lanoxin) 125 mcg IVPUSH ONETIME ONE Stop: 04/30/17 03:13 Last Admin: 04/30/17 03:26 Dose: 125 mcg Digoxin (Lanoxin) 125 mcg IVPUSH ONETIME ONE Stop: 05/02/17 08:31 Last Admin: 05/02/17 08:43 Dose: 125 mcg Diltiazem HCl (Diltiazem) 10 mg IVPUSH ONETIME ONE Stop: 04/30/17 00:14 Last Admin: 04/30/17 00:57 Dose: Not Given Diltiazem HCl (Cardizem) 15 mg PO Q6HR [facility] Last Admin: 04/30/17 10:32 Dose: 15 mg Diltiazem HCl (Cardizem) 30 mg PO Q6HR [facility] Last Admin: 05/01/17 09:06 Dose: 30 mg Diltiazem HCl (Cardizem Cd) 120 mg PO DAILY [facility] Last Admin: 05/01/17 10:40 Dose: 120 mg Furosemide (Lasix) 40 mg IVPUSH ONETIME ONE Stop: 04/30/17 00:50 Last Admin: 04/30/17 00:54 Dose: 40 mg Furosemide (Lasix) 80 mg IVPUSH ONETIME ONE Stop: 04/30/17 19:00 Last Admin: 04/30/17 19:11 Dose: 80 mg Furosemide (Lasix) 80 mg IVPUSH ONETIME ONE Stop: 05/01/17 08:31 Last Admin: 05/01/17 08:20 Dose: 80 mg Furosemide (Lasix) 80 mg IVPUSH ONETIME ONE Stop: 05/01/17 21:48 Last Admin: 05/01/17 22:10 Dose: 80 mg Furosemide (Lasix) Confirm Administered Dose 100 mg .ROUTE .STK-MED ONE Stop: 05/01/17 21:51 Last Admin: 05/01/17 22:18 Dose: Not Given Furosemide (Lasix) 80 mg IVPUSH ONETIME ONE Stop: 05/02/17 08:31 Last Admin: 05/02/17 08:40 Dose: 80 mg Heparin Sodium (Porcine) (Heparin Sodium) 5,000 units IVPUSH Q8H [facility] Last Admin: 04/30/17 03:37 Dose: Not Given Heparin Sodium (Porcine) (Heparin Sodium) 5,000 units SUBCUT Q8H [facility] Last Admin: 04/30/17 03:27 Dose: 5,000 units Heparin Sodium (Porcine) (Heparin Sodium) 5,000 units SUBCUT Q8H [facility] Diltiazem HCl 100 mg/ Sodium (Chloride) 100 mls @ 5 mls/hr IV TITRATE JUSTINE; 5 MG /HR PRN Reason: Protocol Last Admin: 04/30/17 02:27 Dose: 2.5 mg/hr, 2.5 mls/hr Sodium Chloride (Normal Saline) 1,000 mls @ 0 mls/hr IV ASDIRECTED JUSTINE PRN Reason: KVO Last Admin: 04/30/17 02:57 Dose: 25 mls/hr Ferric Sodium Gluconate Complex 250 mg/ Sodium Chloride 120 mls @ 50 mls/hr IV ONETIME ONE Stop: 04/30/17 15:23 Last Admin: 04/30/17 12:46 Dose: 50 mls/hr Ferric Sodium Gluconate Complex 250 mg/ Sodium Chloride 120 mls @ 50 mls/hr IV ONETIME ONE Stop: 05/01/17 11:23 Last Admin: 05/01/17 09:37 Dose: 50 mls/hr Lorazepam (Ativan) 1 mg IV Q6H PRN PRN Reason: Nausea/Vomiting Last Admin: 05/01/17 09:36 Dose: 1 mg Lorazepam (Ativan) 0.5 mg IV Q4H PRN PRN Reason: Anxiety Stop: 05/02/17 00:53 Last Admin: 05/01/17 21:11 Dose: 0.5 mg Metoprolol Tartrate (Lopressor) 25 mg PO ONETIME ONE Stop: 04/30/17 00:47 Last Admin: 04/30/17 00:52 Dose: 25 mg - Exam Quality Assessment: Supplemental Oxygen, DVT Prophylaxis General: Sedated, Lethargic Lungs: Normal Respiratory Effort, Decreased Breath Sounds, Rales. No: Crackles , Rhonchi, Rub, Wheezing Cardiovascular: No Murmurs, Irregular Rhythm, Tachycardia GI/Abdominal Exam: Soft, Non-Tender, No Organomegaly, No Distention Extremities: Pedal Edema (With venous stasis ulcerations both lower extremities) Skin: Warm, Dry - Problem List Review Problem List Initiated/Reviewed/Updated: Yes - My Orders Last 24 Hours: My Active Orders 05/01/17 09:00 Aspirin [Halfprin] 81 mg PO DAILY 05/01/17 10:15 Isosorbide Mononitrate [Imdur] 30 mg PO DAILY 05/02/17 00:53 LORazepam [Ativan] 1 mg IV Q4H PRN 05/02/17 08:59 Amiodarone [Cordarone] 150 mg IVPUSH ONETIME ONE 05/02/17 09:00 Amiodarone 450 MG in D5W @ 1 MG/MIN(250ml) Amiodarone [Cordarone] 450 mg Dextrose 5% in Water 241 ml IV ASDIRECTED 05/03/17 05:00 BASIC METABOLIC PANEL,BMP [CHEM] Timed CBC WITH AUTO DIFF [HEME] Timed MAGNESIUM [CHEM] Timed - Plan Plan:: ASSESSMENT AND PLAN ATRIAL FIBRILLATION WITH RAPID VENTRICULAR RESPONSE-persistent rapid heart rate over the last 24 hours seems to be unresponsive to beta everett and diltiazem. -Amiodarone IV loading dose over the next 24 hours -Not a candidate for cardioversion, because of duration of atrial fibrillation -Hold on warfarin therapy until anemia has been managed -Diltiazem CD 120 mg by mouth daily -Echocardiogram Wednesday CONGESTIVE HEART FAILURE-shortness of breath does seem to be somewhat better this morning -Echocardiogram as above -Daily diuretic therapy -Continue beta everett therapy -Not a candidate for CHARLIE inhibitor because of severe renal insufficiency CHRONIC hemoglobin improve following transfusion of one unit of red blood cells -Iron low we'll give IV iron supplement today -Follow-up hemoglobin in a.m. ELEVATED TROPONIN-likely secondary to rapid heart rate and chronic kidney disease, demand ischemia. Denies current symptoms of chest pain -Imdur 30 mg by mouth daily CHRONIC KIDNEY DISEASE STAGE IV-renal function has remained stable thus far - monitor urine output and renal function during hospital stay BILATERAL VENOUS STASIS ULCERATIONS-present on admission -Consult Dr. Cavanaugh relate this next week for assistance in management -Continue current dressing changes MAINTENANCE ISSUES -DVT prophylaxis; Lovenox 30 mg subcutaneous daily -GI prophylaxis; not indicated -Richards catheter; not required -Nutrition; regular diet -Nicotine dependence; not required CODE STATUS-FULL CODE ADMISSION STATUS-patient will be admitted to inpatient status, expect at least a 2 night hospital stay for evaluation and management of problems as outlined above. At the time of this admission I do not reasonably expected evaluation and management of this problem will require more than a 96 hour hospital stay. DISPOSITION-anticipate discharge to home after the hospital stay. PRIMARY CARE PROVIDER-Dr. Begum
[2017-05-02] MEDS: Enoxaparin 30 MG/0.3 ML Syringe SUBCUT SCH (09:08)
[2017-05-02] MEDS ORDERED: Amiodarone 150 MG/3 ML SDV IVPUSH ONE (09:30)
--- NOTE | 2017-05-02 15:22 | CONS ---
DATE OF SERVICE: 05/02/2017 REFERRING PHYSICIAN: CONSULTING PHYSICIAN: Anthony Cavanaugh MD REASON FOR CONSULTATION: Evaluation and management of lymphedema/venous ulcers. Of note, this history and physical is collected from the chart with minimal input from the patient due to current mental status, in conjunction with physician notes. Also, of note, the history and physical in the chart today is not complete. It appears the patient is admitted for rapid heart rate in association with possible atrial fibrillation. Hospitalist services are working on obtaining an echocardiogram, and she continues to have sedation issues due to her sleeping medications. At present, most likely this is a chronic disease, has been present for a while. It is unknown what she had been treated prior to the hospital, but asynchronous for the current treatments for lymphedema at this point. The pain is, from what can be gleaned from the patient, 1 to 2/10, intermittent and located in her lower extremities. PAST MEDICAL HISTORY: Atrial fibrillation, congestive heart failure, anemia, stage 4 kidney disease, venous ulcers, history of smoking, coronary bypass in 2012, history of GI bleed, urinary incontinence, hip fracture, history of stroke, anxiety, depression, and vision changes. REVIEW OF SYSTEMS: GENERAL: The patient appears to have significant medical issues. HEENT: History of cataract surgeries. CARDIOVASCULAR: Please see above. RESPIRATORY: Please see above. GENITOURINARY: Renal failure. GASTROINTESTINAL: History of Meckel's diverticulum. NEUROLOGIC: Unable to be assessed. PSYCH: Unable to be assessed. The remainder of review of systems looking at the chart appeared to be negative. PHYSICAL EXAMINATION: VITAL SIGNS: Temperature 96.8, blood pressure 117/66, pulse is irregular and greater than 100 to 150, respiratory rate is 19, and 93% on room air. HEENT: Pupils are equal. NECK: Supple. LUNGS: Poor inspiratory effort. CARDIOVASCULAR: Irregular rhythm and rate. ABDOMEN: Bowel sounds positive. EXTREMITIES: Lymphedema, venous ulcers. NEUROLOGIC: Not oriented to time or place. PSYCH: Unable to be assessed. LABORATORY RESULTS: Normal white blood cell count, hemoglobin 8.7. Troponin levels are 0.19 and BNP last recorded on the was 5700. IMAGING: Chest x-ray performed on April 29 shows cardiomegaly, improved, right and left pleural effusions. ASSESSMENT AND PLAN: Venous stasis and venous stasis ulcer/lymphedema. These are chronic conditions. We will gently and slowly compression wrap her. There is always the risk of worsening congestive heart failure, but we will start this slowly with CoFlex two-stage 25- mm gradient distal to proximal gradient pressure wraps. Underneath this, we will use Mepilex Ag foam with medium absorption. This will be changed every 5 to 7 days. The patient will follow up with myself in the [facility] once discharged from the hospital. Anthony Cavanaugh MD /[id number]
[2017-05-02] MEDS: Melatonin 3 MG Tab PO SCH (20:26)
[2017-05-02] MEDS: Rosuvastatin 10 MG Tab PO SCH (20:26)
[2017-05-03] MEDS: Albuterol/Ipratropium 3.0-0.5 MG/3 ML Neb Soln INH SCH ×4 (07:22→21:12)
[2017-05-03] MEDS: Pantoprazole 40 MG Tab.CR PO SCH (08:05)
[2017-05-03] MEDS: Aspirin 81 MG Tab.EC PO SCH (08:06)
[2017-05-03] MEDS: Enoxaparin 30 MG/0.3 ML Syringe SUBCUT SCH (08:07)
[2017-05-03] MEDS: Metoprolol Tartrate 50 MG Tab PO SCH ×2 (08:07→21:01)
[2017-05-03] MEDS: Isosorbide Mononitrate 30 MG Tab.ER PO SCH (08:10)
[2017-05-03] MEDS ORDERED: Furosemide 40 MG/4 ML VIAL IVPUSH ONE (08:30)
[2017-05-03] MEDS ORDERED: Magnesium Sulfate/Water 2 GM in Premix Bag 1 BAG IV ONE (09:00)
--- NOTE | 2017-05-03 09:55 | PCM.PN ---
- General Info Date of Service: 05/03/17 Subjective Update: Ms. Hidalgo has improved over the last 24 hours, heart rate control has been better with use of amiodarone. Still has episodes where her heart rate will go into the 1 teens and 120s but rates are not as high as they had been previously. Blood pressure overall has remained stable, hemoglobin decreased from yesterday although there is no evidence of active GI bleeding. Currently denies significant symptoms of chest pain or pressure or shortness of breath. Functional Status: Reports: Tolerating Diet, Urinating - Review of Systems General: Denies: Fever, Chills Pulmonary: Reports: No Symptoms Cardiovascular: Denies: Chest Pain, Palpitations, Orthopnea, PND, Edema, Lightheadedness Gastrointestinal: Reports: No Symptoms Psychiatric: Reports: Anxiety - Patient Data Vitals - Most Recent: Last Vital Signs Temp 98 F 05/03/17 07:00 Pulse 119 H 05/03/17 08:07 Resp 21 H 05/03/17 07:00 BP 112/71 05/03/17 09:10 Pulse Ox 95 05/03/17 07:22 Weight - Most Recent: 139 lb I&O - Last 24 Hours: Intake & Output 05/02/17 05/03/17 05/03/17 22:59 06:59 14:59 Intake Total 238 555 Output Total 550 Balance -312 555 Lab Results Last 24 Hours: Laboratory Results - last 24 hr 05/03/17 05/03/17 Range/Units 04:30 04:30 WBC 7.4 (4.5-11.0) K/uL RBC 2.75 L (3.30-5.50) M/uL Hgb 7.9 L (12.0-15.0) g/dL Hct 27.7 L (36.0-48.0) % MCV 101 H (80-98) fL MCH 29 (27-31) pg MCHC 29 L (32-36) % Plt Count 140 L (150-400) K/uL Neut % (Auto) 71 H (36-66) % Lymph % (Auto) 20 L (24-44) % [place] % (Auto) 8 H (2-6) % Eos % (Auto) 2 (2-4) % Baso % (Auto) 0 (0-1) % Sodium 140 (140-148) mmol/L Potassium 3.9 (3.6-5.2) mmol/L Chloride 103 (100-108) mmol/L Carbon Dioxide 31 (21-32) mmol/L Anion Gap 5.8 (5.0-14.0) mmol/L BUN 54 H (7-18) mg/dL Creatinine 1.8 H (0.6-1.0) mg/dL Est Cr Clr Drug Dosing 19.99 mL/min Estimated GFR (MDRD) 28 L (>60) Glucose 124 H (74-106) mg/dL Calcium 8.2 L (8.5-10.1) mg/dL Magnesium 1.7 L (1.8-2.4) mg/dL TSH, Ultra Sensitive 0.683 (0.358-3.740) uIU/mL Babak Results Last 24 Hours: Microbiology 04/30/17 05:15 Urine Culture - Final Urine, Clean Catch NO GROWTH AFTER 2 DAYS Med Orders - Current: Current Medications Acetaminophen (Tylenol) 650 mg PO Q4H PRN PRN Reason: Pain (Mild 1-3)/fever Last Admin: 05/02/17 21:12 Dose: 650 mg Hydrocodone Bitart/Acetaminophen ([place] 325-5 Mg) 1 tab PO Q6H PRN PRN Reason: Pain Albuterol (Proventil Neb Soln) 2.5 mg NEB Q4H PRN PRN Reason: Shortness Of Breath/wheezing Last Admin: 05/02/17 04:58 Dose: 2.5 mg Albuterol (Ventolin Hfa) 0 gm INH QID PRN PRN Reason: SHORTNESS OF BREATH Albuterol/Ipratropium (Duoneb 3.0-0.5 Mg/3 Ml) 3 ml INH QIDRT [facility] Last Admin: 05/03/17 07:22 Dose: 3 ml Aspirin (Halfprin) 81 mg PO DAILY [facility] Last Admin: 05/03/17 08:06 Dose: 81 mg Diltiazem HCl (Cardizem Cd) 120 mg PO DAILY [facility] Enoxaparin Sodium (Lovenox) 30 mg SUBCUT DAILY [facility] Last Admin: 05/03/17 08:07 Dose: 30 mg Amiodarone HCl 450 mg/ (Dextrose/Water) 250 mls @ 33.33 mls/hr IV ASDIRECTED JUSTINE; 1 MG/MIN PRN Reason: Protocol Last Admin: 05/03/17 02:32 Dose: 0.5 mg/min, 16.66 mls/hr Magnesium Sulfate 2 gm/ Premix 50 mls @ 25 mls/hr IV ONETIME ONE Stop: 05/03/17 10:59 Last Admin: 05/03/17 09:13 Dose: 25 mls/hr Isosorbide Mononitrate (Imdur) 30 mg PO DAILY [facility] Last Admin: 05/03/17 08:10 Dose: 30 mg Lorazepam (Ativan) 0.5 mg PO Q6H PRN PRN Reason: Anxiety Melatonin (Melatonin) 9 mg PO BEDTIME [facility] Last Admin: 05/02/17 20:26 Dose: 9 mg Metoprolol Tartrate (Lopressor) 50 mg PO BID [facility] Last Admin: 05/03/17 08:07 Dose: 50 mg Pantoprazole Sodium (Protonix) 40 mg PO ACBREAKFAST [facility] Last Admin: 05/03/17 08:05 Dose: 40 mg Promethazine HCl (Phenergan) 25 mg PO Q6H PRN PRN Reason: Nausea able to take PO Rosuvastatin Calcium (Crestor) 5 mg PO BEDTIME [facility] Last Admin: 05/02/17 20:26 Dose: 5 mg Discontinued Medications Hydrocodone Bitart/Acetaminophen ([place] 325-5 Mg) 1 tab PO ONETIME ONE Stop: 04/29/17 23:13 Last Admin: 04/29/17 23:34 Dose: 1 tab Amiodarone HCl (Cordarone) 150 mg IVPUSH ONETIME ONE PRN Reason: Protocol Stop: 05/02/17 09:31 Last Admin: 05/02/17 09:49 Dose: 150 mg Digoxin (Lanoxin) 125 mcg IVPUSH ONETIME ONE Stop: 04/30/17 03:13 Last Admin: 04/30/17 03:26 Dose: 125 mcg Digoxin (Lanoxin) 125 mcg IVPUSH ONETIME ONE Stop: 05/02/17 08:31 Last Admin: 05/02/17 08:43 Dose: 125 mcg Diltiazem HCl (Diltiazem) 10 mg IVPUSH ONETIME ONE Stop: 04/30/17 00:14 Last Admin: 04/30/17 00:57 Dose: Not Given Diltiazem HCl (Cardizem) 15 mg PO Q6HR [facility] Last Admin: 04/30/17 10:32 Dose: 15 mg Diltiazem HCl (Cardizem) 30 mg PO Q6HR [facility] Last Admin: 05/01/17 09:06 Dose: 30 mg Diltiazem HCl (Cardizem Cd) 120 mg PO DAILY [facility] Last Admin: 05/01/17 10:40 Dose: 120 mg Furosemide (Lasix) 40 mg IVPUSH ONETIME ONE Stop: 04/30/17 00:50 Last Admin: 04/30/17 00:54 Dose: 40 mg Furosemide (Lasix) 80 mg IVPUSH ONETIME ONE Stop: 04/30/17 19:00 Last Admin: 04/30/17 19:11 Dose: 80 mg Furosemide (Lasix) 80 mg IVPUSH ONETIME ONE Stop: 05/01/17 08:31 Last Admin: 05/01/17 08:20 Dose: 80 mg Furosemide (Lasix) 80 mg IVPUSH ONETIME ONE Stop: 05/01/17 21:48 Last Admin: 05/01/17 22:10 Dose: 80 mg Furosemide (Lasix) Confirm Administered Dose 100 mg .ROUTE .STK-MED ONE Stop: 05/01/17 21:51 Last Admin: 05/01/17 22:18 Dose: Not Given Furosemide (Lasix) 80 mg IVPUSH ONETIME ONE Stop: 05/02/17 08:31 Last Admin: 05/02/17 08:40 Dose: 80 mg Furosemide (Lasix) 80 mg IVPUSH ONETIME ONE Stop: 05/03/17 08:31 Last Admin: 05/03/17 09:10 Dose: 80 mg Heparin Sodium (Porcine) (Heparin Sodium) 5,000 units IVPUSH Q8H [facility] Last Admin: 04/30/17 03:37 Dose: Not Given Heparin Sodium (Porcine) (Heparin Sodium) 5,000 units SUBCUT Q8H [facility] Last Admin: 04/30/17 03:27 Dose: 5,000 units Heparin Sodium (Porcine) (Heparin Sodium) 5,000 units SUBCUT Q8H [facility] Diltiazem HCl 100 mg/ Sodium (Chloride) 100 mls @ 5 mls/hr IV TITRATE JUSTINE; 5 MG /HR PRN Reason: Protocol Last Admin: 04/30/17 02:27 Dose: 2.5 mg/hr, 2.5 mls/hr Sodium Chloride (Normal Saline) 1,000 mls @ 0 mls/hr IV ASDIRECTED JUSTINE PRN Reason: KVO Last Admin: 04/30/17 02:57 Dose: 25 mls/hr Ferric Sodium Gluconate Complex 250 mg/ Sodium Chloride 120 mls @ 50 mls/hr IV ONETIME ONE Stop: 04/30/17 15:23 Last Admin: 04/30/17 12:46 Dose: 50 mls/hr Ferric Sodium Gluconate Complex 250 mg/ Sodium Chloride 120 mls @ 50 mls/hr IV ONETIME ONE Stop: 05/01/17 11:23 Last Admin: 05/01/17 09:37 Dose: 50 mls/hr Lorazepam (Ativan) 1 mg IV Q6H PRN PRN Reason: Nausea/Vomiting Last Admin: 05/01/17 09:36 Dose: 1 mg Lorazepam (Ativan) 0.5 mg IV Q4H PRN PRN Reason: Anxiety Stop: 05/02/17 00:53 Last Admin: 05/01/17 21:11 Dose: 0.5 mg Lorazepam (Ativan) 1 mg IV Q4H PRN PRN Reason: Anxiety Last Admin: 05/02/17 21:26 Dose: 1 mg Metoprolol Tartrate (Lopressor) 25 mg PO ONETIME ONE Stop: 04/30/17 00:47 Last Admin: 04/30/17 00:52 Dose: 25 mg Morphine Sulfate (Morphine) 2 mg IVPUSH Q2H PRN PRN Reason: Pain (severe 7-10) Last Admin: 05/02/17 18:17 Dose: 2 mg - Exam Quality Assessment: DVT Prophylaxis General: Alert, Oriented. No: Cooperative Lungs: Normal Respiratory Effort, Decreased Breath Sounds, Rales. No: Crackles , Wheezing Cardiovascular: No Murmurs, Irregular Rhythm, Tachycardia GI/Abdominal Exam: Soft, Non-Tender, No Organomegaly, No Distention Extremities: Pedal Edema Skin: Warm, Dry - Problem List Review Problem List Initiated/Reviewed/Updated: Yes - My Orders Last 24 Hours: My Active Orders 05/02/17 09:00 Amiodarone [Cordarone] 450 mg Dextrose 5% in Water 241 ml IV ASDIRECTED 05/03/17 08:00 Echo Comp wo Cont [US] Urgent 05/03/17 08:18 Transfuse Red Blood Cells [COMM] Urgent 05/03/17 09:00 Magnesium Sulfate/Water [Magnesium Sulfate 2 GM in Water 50 ML] 2 gm Premix Bag 1 bag IV ONETIME 05/03/17 09:12 Acetaminophen/HYDROcodone [[place] 325-5 MG] 1 tab PO Q6H PRN LORazepam [Ativan] 0.5 mg PO Q6H PRN 05/03/17 09:15 Diltiazem [Cardizem CD] 120 mg PO DAILY 05/03/17 09:20 RED BLOOD CELLS LP [BBK] Urgent TYPE AND SCREEN [BBK] Urgent 05/04/17 05:00 BASIC METABOLIC PANEL,BMP [CHEM] Timed CBC WITH AUTO DIFF [HEME] Timed MAGNESIUM [CHEM] Timed - Plan Plan:: ASSESSMENT AND PLAN ATRIAL FIBRILLATION WITH RAPID VENTRICULAR RESPONSE- rate control improved with use of amiodarone, not yet within the desired range -Amiodarone IV loading dose will be completed today -Amiodarone 400 mg by mouth daily 2 weeks, then 200 mg by mouth daily -Not a candidate for cardioversion, because of duration of atrial fibrillation -Not a candidate for anticoagulation because of anemia and previous history of GI bleeds with duodenal AV malformations -Diltiazem CD 120 mg by mouth daily -Echocardiogram today CONGESTIVE HEART FAILURE-continue daily diuresis with improvement in shortness of breath -Echocardiogram as above -Daily diuretic therapy -Continue beta everett therapy -Not a candidate for CHARLIE inhibitor because of severe renal insufficiency CHRONIC ANEMIA-hemoglobin decreased below 8 given her underlying COPD and congestive heart failure with plan for transfusion of one additional units of red blood cells. She has completed IV iron infusion -Transfuse one unit of red blood cells today -Follow-up hemoglobin in a.m. ELEVATED TROPONIN-likely secondary to rapid heart rate and chronic kidney disease, demand ischemia. Denies current symptoms of chest pain -Imdur 30 mg by mouth daily CHRONIC KIDNEY DISEASE STAGE IV-renal function has remained stable thus far - monitor urine output and renal function during hospital stay BILATERAL VENOUS STASIS ULCERATIONS-present on admission -Consult Dr. Cavanaugh relate this next week for assistance in management -Continue current dressing changes MAINTENANCE ISSUES -DVT prophylaxis; Lovenox 30 mg subcutaneous daily -GI prophylaxis; not indicated -Richards catheter; not required -Nutrition; regular diet -Nicotine dependence; not required CODE STATUS-FULL CODE ADMISSION STATUS-patient will be admitted to inpatient status, expect at least a 2 night hospital stay for evaluation and management of problems as outlined above. At the time of this admission I do not reasonably expected evaluation and management of this problem will require more than a 96 hour hospital stay. DISPOSITION-anticipate discharge to home after the hospital stay. PRIMARY CARE PROVIDER-Dr. Begum
[2017-05-03] MEDS: Diltiazem 120 MG Cap.CD PO SCH (10:10)
[2017-05-03] MEDS: LORazepam 0.5 MG Tab PO PRN ×3 (11:48→22:25)
[2017-05-03] MEDS: Acetaminophen/HYDROcodone 325-5 MG Tab PO PRN ×2 (11:48→17:45)
[2017-05-03] MEDS: predniSONE 10 MG Tab PO SCH (16:03)
[2017-05-03] MEDS: Iron Polysaccharides Complex 150 MG Cap PO SCH (16:03)
[2017-05-03] MEDS: traZODone 50 MG Tab PO SCH (21:00)
[2017-05-03] MEDS ORDERED: BUMETANIDE 2 MG PO SCH (21:00)
[2017-05-03] MEDS: Bumetanide 1 MG Tab PO SCH (21:00)
[2017-05-03] MEDS ORDERED: TRAZODONE PO SCH (21:00)
[2017-05-03] MEDS: Amiodarone 200 MG Tab PO SCH (21:01)
[2017-05-03] MEDS: Rosuvastatin 10 MG Tab PO SCH (21:02)
[2017-05-03] MEDS: Melatonin 3 MG Tab PO SCH (21:03)
[2017-05-04] MEDS: LORazepam 0.5 MG Tab PO PRN (05:50)
[2017-05-04] MEDS: Albuterol/Ipratropium 3.0-0.5 MG/3 ML Neb Soln INH SCH ×4 (07:04→20:17)
[2017-05-04] MEDS: Pantoprazole 40 MG Tab.CR PO SCH (07:18)
[2017-05-04] MEDS: predniSONE 10 MG Tab PO SCH (09:27)
[2017-05-04] MEDS: Bumetanide 1 MG Tab PO SCH ×2 (09:27→20:13)
[2017-05-04] MEDS: Iron Polysaccharides Complex 150 MG Cap PO SCH (09:28)
[2017-05-04] MEDS: Aspirin 81 MG Tab.EC PO SCH (09:28)
[2017-05-04] MEDS: Enoxaparin 30 MG/0.3 ML Syringe SUBCUT SCH (09:28)
[2017-05-04] MEDS: Diltiazem 120 MG Cap.CD PO SCH (09:29)
[2017-05-04] MEDS: Metoprolol Tartrate 50 MG Tab PO SCH ×2 (09:29→20:12)
[2017-05-04] MEDS: Isosorbide Mononitrate 30 MG Tab.ER PO SCH (09:29)
[2017-05-04] MEDS: Amiodarone 200 MG Tab PO SCH ×2 (09:29→20:14)
--- NOTE | 2017-05-04 12:11 | PCM.PN ---
- General Info Date of Service: 05/04/17 Subjective Update: Ms. Hidalgo has been stable since yesterday, overall rate control has improved with her atrial fibrillation. She has developed intermittent episodes of increased heart rate especially with activity, apparently this is chronic having occurred over the past several months. She denies significant shortness of breath or any symptoms of chest pain or pressure. Vital signs have remained stable other than the elevated heart rate and she has been afebrile. - Review of Systems General: Reports: Weakness. Denies: Fever, Chills Pulmonary: Denies: Shortness of Breath, Cough, Sputum, Hemoptysis, Wheezing Cardiovascular: Reports: Edema. Denies: Chest Pain, Palpitations, Dyspnea on Exertion, Lightheadedness Gastrointestinal: Reports: No Symptoms - Patient Data Vitals - Most Recent: Last Vital Signs Temp 97.6 F 05/04/17 07:00 Pulse 112 H 05/04/17 10:50 Resp 18 05/04/17 10:00 BP 139/101 H 05/04/17 10:00 Pulse Ox 97 05/04/17 10:00 Weight - Most Recent: 139 lb 1.787 oz I&O - Last 24 Hours: Intake & Output 05/03/17 05/04/17 05/04/17 22:59 06:59 14:59 Intake Total 435 360 Output Total 300 300 Balance 135 60 Lab Results Last 24 Hours: Laboratory Results - last 24 hr 04/30/17 05/03/17 05/04/17 Range/Units 06:00 09:20 04:40 WBC (4.5-11.0) K/uL RBC (3.30-5.50) M/uL Hgb (12.0-15.0) g/dL Hct (36.0-48.0) % MCV (80-98) fL MCH (27-31) pg MCHC (32-36) % Plt Count (150-400) K/uL Neut % (Auto) (36-66) % Lymph % (Auto) (24-44) % Shoshone % (Auto) (2-6) % Eos % (Auto) (2-4) % Baso % (Auto) (0-1) % Total Counted 100 Segmented Neutrophils 70 (38-70) % Band Neutrophils 1 (0-8) % Lymphocytes 20 L (21-49) % Monocytes 7 (3-11) % Eosinophils 2 (0-7) % Diff Path Review See below WBC Morphology Normal Platelet Morphology Decreased RBC Morphology Normal Sodium 143 (140-148) mmol/L Potassium 4.1 (3.6-5.2) mmol/L Chloride 106 (100-108) mmol/L Carbon Dioxide 29 (21-32) mmol/L Anion Gap 8.1 (5.0-14.0) mmol/L BUN 60 H (7-18) mg/dL Creatinine 1.7 H (0.6-1.0) mg/dL Est Cr Clr Drug Dosing 21.17 mL/min Estimated GFR (MDRD) 29 L (>60) Glucose 198 H (74-106) mg/dL Calcium 8.2 L (8.5-10.1) mg/dL Magnesium 2.0 (1.8-2.4) mg/dL Ref Lab Pathologist See below Blood Type O POSITIVE Gel Antibody Screen Negative Crossmatch See Detail 05/04/17 Range/Units 05:00 WBC 6.1 (4.5-11.0) K/uL RBC 3.05 L (3.30-5.50) M/uL Hgb 8.8 L (12.0-15.0) g/dL Hct 29.6 L (36.0-48.0) % MCV 97 (80-98) fL MCH 29 (27-31) pg MCHC 30 L (32-36) % Plt Count 147 L (150-400) K/uL Neut % (Auto) 82 H (36-66) % Lymph % (Auto) 13 L (24-44) % Shoshone % (Auto) 5 (2-6) % Eos % (Auto) 0 L (2-4) % Baso % (Auto) 0 (0-1) % Total Counted Segmented Neutrophils (38-70) % Band Neutrophils (0-8) % Lymphocytes (21-49) % Monocytes (3-11) % Eosinophils (0-7) % Diff Path Review WBC Morphology Platelet Morphology RBC Morphology Sodium (140-148) mmol/L Potassium (3.6-5.2) mmol/L Chloride (100-108) mmol/L Carbon Dioxide (21-32) mmol/L Anion Gap (5.0-14.0) mmol/L BUN (7-18) mg/dL Creatinine (0.6-1.0) mg/dL Est Cr Clr Drug Dosing mL/min Estimated GFR (MDRD) (>60) Glucose (74-106) mg/dL Calcium (8.5-10.1) mg/dL Magnesium (1.8-2.4) mg/dL Ref Lab Pathologist Blood Type Gel Antibody Screen Crossmatch Med Orders - Current: Current Medications Acetaminophen (Tylenol) 650 mg PO Q4H PRN PRN Reason: Pain (Mild 1-3)/fever Last Admin: 05/02/17 21:12 Dose: 650 mg Hydrocodone Bitart/Acetaminophen ([place] 325-5 Mg) 1 tab PO Q6H PRN PRN Reason: Pain Last Admin: 05/03/17 17:45 Dose: 1 tab Albuterol (Proventil Neb Soln) 2.5 mg NEB Q4H PRN PRN Reason: Shortness Of Breath/wheezing Last Admin: 05/02/17 04:58 Dose: 2.5 mg Albuterol (Ventolin Hfa) 0 gm INH QID PRN PRN Reason: SHORTNESS OF BREATH Albuterol/Ipratropium (Duoneb 3.0-0.5 Mg/3 Ml) 3 ml INH QIDRT [facility] Last Admin: 05/04/17 10:49 Dose: 3 ml Amiodarone HCl (Cordarone) 200 mg PO BID [facility] Last Admin: 05/04/17 09:29 Dose: 200 mg Aspirin (Halfprin) 81 mg PO DAILY [facility] Last Admin: 05/04/17 09:28 Dose: 81 mg Bumetanide (Bumex) 2 mg PO BID [facility] Last Admin: 05/04/17 09:27 Dose: 2 mg Diltiazem HCl (Cardizem Cd) 120 mg PO DAILY [facility] Last Admin: 05/04/17 09:29 Dose: 120 mg Enoxaparin Sodium (Lovenox) 30 mg SUBCUT DAILY [facility] Last Admin: 05/04/17 09:28 Dose: 30 mg Isosorbide Mononitrate (Imdur) 30 mg PO DAILY [facility] Last Admin: 05/04/17 09:29 Dose: 30 mg Lorazepam (Ativan) 0.5 mg PO Q6H PRN PRN Reason: Anxiety Last Admin: 05/04/17 05:50 Dose: 0.5 mg Melatonin (Melatonin) 9 mg PO BEDTIME [facility] Last Admin: 05/03/17 21:03 Dose: 9 mg Melatonin (Melatonin) 9 mg PO BEDTIME [facility] Metoprolol Tartrate (Lopressor) 50 mg PO BID [facility] Last Admin: 05/04/17 09:29 Dose: 50 mg Pantoprazole Sodium (Protonix) 40 mg PO ACBREAKFAST [facility] Last Admin: 05/04/17 07:18 Dose: 40 mg Polysaccharide Iron Complex (Ferrex 150) 150 mg PO DAILY [facility] Last Admin: 05/04/17 09:28 Dose: 150 mg Prednisone (Prednisone) 30 mg PO DAILY [facility] Last Admin: 05/04/17 09:27 Dose: 30 mg Promethazine HCl (Phenergan) 25 mg PO Q6H PRN PRN Reason: Nausea able to take PO Rosuvastatin Calcium (Crestor) 5 mg PO BEDTIME [facility] Last Admin: 05/03/17 21:02 Dose: 5 mg Trazodone HCl (Trazodone) 100 mg PO BEDTIME [facility] Last Admin: 05/03/17 21:00 Dose: 100 mg Discontinued Medications Hydrocodone Bitart/Acetaminophen ([place] 325-5 Mg) 1 tab PO ONETIME ONE Stop: 04/29/17 23:13 Last Admin: 04/29/17 23:34 Dose: 1 tab Amiodarone HCl (Cordarone) 150 mg IVPUSH ONETIME ONE PRN Reason: Protocol Stop: 05/02/17 09:31 Last Admin: 05/02/17 09:49 Dose: 150 mg Digoxin (Lanoxin) 125 mcg IVPUSH ONETIME ONE Stop: 04/30/17 03:13 Last Admin: 04/30/17 03:26 Dose: 125 mcg Digoxin (Lanoxin) 125 mcg IVPUSH ONETIME ONE Stop: 05/02/17 08:31 Last Admin: 05/02/17 08:43 Dose: 125 mcg Diltiazem HCl (Diltiazem) 10 mg IVPUSH ONETIME ONE Stop: 04/30/17 00:14 Last Admin: 04/30/17 00:57 Dose: Not Given Diltiazem HCl (Cardizem) 15 mg PO Q6HR [facility] Last Admin: 04/30/17 10:32 Dose: 15 mg Diltiazem HCl (Cardizem) 30 mg PO Q6HR [facility] Last Admin: 05/01/17 09:06 Dose: 30 mg Diltiazem HCl (Cardizem Cd) 120 mg PO DAILY [facility] Last Admin: 05/01/17 10:40 Dose: 120 mg Furosemide (Lasix) 40 mg IVPUSH ONETIME ONE Stop: 04/30/17 00:50 Last Admin: 04/30/17 00:54 Dose: 40 mg Furosemide (Lasix) 80 mg IVPUSH ONETIME ONE Stop: 04/30/17 19:00 Last Admin: 04/30/17 19:11 Dose: 80 mg Furosemide (Lasix) 80 mg IVPUSH ONETIME ONE Stop: 05/01/17 08:31 Last Admin: 05/01/17 08:20 Dose: 80 mg Furosemide (Lasix) 80 mg IVPUSH ONETIME ONE Stop: 05/01/17 21:48 Last Admin: 05/01/17 22:10 Dose: 80 mg Furosemide (Lasix) Confirm Administered Dose 100 mg .ROUTE .STK-MED ONE Stop: 05/01/17 21:51 Last Admin: 05/01/17 22:18 Dose: Not Given Furosemide (Lasix) 80 mg IVPUSH ONETIME ONE Stop: 05/02/17 08:31 Last Admin: 05/02/17 08:40 Dose: 80 mg Furosemide (Lasix) 80 mg IVPUSH ONETIME ONE Stop: 05/03/17 08:31 Last Admin: 05/03/17 09:10 Dose: 80 mg Heparin Sodium (Porcine) (Heparin Sodium) 5,000 units IVPUSH Q8H [facility] Last Admin: 04/30/17 03:37 Dose: Not Given Heparin Sodium (Porcine) (Heparin Sodium) 5,000 units SUBCUT Q8H [facility] Last Admin: 04/30/17 03:27 Dose: 5,000 units Heparin Sodium (Porcine) (Heparin Sodium) 5,000 units SUBCUT Q8H [facility] Diltiazem HCl 100 mg/ Sodium (Chloride) 100 mls @ 5 mls/hr IV TITRATE JUSTINE; 5 MG /HR PRN Reason: Protocol Last Admin: 04/30/17 02:27 Dose: 2.5 mg/hr, 2.5 mls/hr Sodium Chloride (Normal Saline) 1,000 mls @ 0 mls/hr IV ASDIRECTED JUSTINE PRN Reason: KVO Last Admin: 04/30/17 02:57 Dose: 25 mls/hr Ferric Sodium Gluconate Complex 250 mg/ Sodium Chloride 120 mls @ 50 mls/hr IV ONETIME ONE Stop: 04/30/17 15:23 Last Admin: 04/30/17 12:46 Dose: 50 mls/hr Ferric Sodium Gluconate Complex 250 mg/ Sodium Chloride 120 mls @ 50 mls/hr IV ONETIME ONE Stop: 05/01/17 11:23 Last Admin: 05/01/17 09:37 Dose: 50 mls/hr Amiodarone HCl 450 mg/ (Dextrose/Water) 250 mls @ 33.33 mls/hr IV ASDIRECTED JUSTINE; 1 MG/MIN PRN Reason: Protocol Last Admin: 05/03/17 02:32 Dose: 0.5 mg/min, 16.66 mls/hr Magnesium Sulfate 2 gm/ Premix 50 mls @ 25 mls/hr IV ONETIME ONE Stop: 05/03/17 10:59 Last Admin: 05/03/17 09:13 Dose: 25 mls/hr Lorazepam (Ativan) 1 mg IV Q6H PRN PRN Reason: Nausea/Vomiting Last Admin: 05/01/17 09:36 Dose: 1 mg Lorazepam (Ativan) 0.5 mg IV Q4H PRN PRN Reason: Anxiety Stop: 05/02/17 00:53 Last Admin: 05/01/17 21:11 Dose: 0.5 mg Lorazepam (Ativan) 1 mg IV Q4H PRN PRN Reason: Anxiety Last Admin: 05/02/17 21:26 Dose: 1 mg Metoprolol Tartrate (Lopressor) 25 mg PO ONETIME ONE Stop: 04/30/17 00:47 Last Admin: 04/30/17 00:52 Dose: 25 mg Morphine Sulfate (Morphine) 2 mg IVPUSH Q2H PRN PRN Reason: Pain (severe 7-10) Last Admin: 05/02/17 18:17 Dose: 2 mg - Exam Quality Assessment: DVT Prophylaxis General: Alert, Cooperative, No Acute Distress Lungs: Clear to Auscultation, Normal Respiratory Effort, Decreased Breath Sounds. No: Rales, Rhonchi, Stridor, Wheezing Cardiovascular: No Murmurs, Irregular Rhythm, Tachycardia GI/Abdominal Exam: Soft, Non-Tender, No Organomegaly, No Distention Extremities: Non-Tender, No Pedal Edema Skin: Warm, Dry, Intact - Problem List Review Problem List Initiated/Reviewed/Updated: Yes - My Orders Last 24 Hours: My Active Orders 05/03/17 14:30 Iron Polysaccharides Complex [Ferrex 150] 150 mg PO DAILY predniSONE 30 mg PO DAILY 05/03/17 21:00 Amiodarone [Cordarone] 200 mg PO BID Bumetanide [Bumex] 2 mg PO BID traZODone 100 mg PO BEDTIME 05/04/17 21:00 Melatonin 9 mg PO BEDTIME - Plan Plan:: ASSESSMENT AND PLAN ATRIAL FIBRILLATION WITH RAPID VENTRICULAR RESPONSE- rate control improved with use of amiodarone, not yet within the desired range. Elevation in heart rate has been chronic over the past several months. Preliminary report from echocardiogram shows low normal left ventricular function, biatrial enlargement , moderate to severe MR and TR -Amiodarone 400 mg by mouth daily 2 weeks, then 200 mg by mouth daily -Not a candidate for cardioversion, because of duration of atrial fibrillation -Not a candidate for anticoagulation because of anemia and previous history of GI bleeds with duodenal AV malformations -Diltiazem CD 120 mg by mouth daily -Echocardiogram today CONGESTIVE HEART FAILURE-continue daily diuresis with improvement in shortness of breath. Likely congestive heart failure with preserved left ventricular function -Daily diuretic therapy -Continue beta everett therapy -Not a candidate for CHARLIE inhibitor because of severe renal insufficiency CHRONIC ANEMIA-hemoglobin stable following transfusion of one unit of red blood cells yesterday She has completed IV iron infusion ELEVATED TROPONIN-likely secondary to rapid heart rate and chronic kidney disease, demand ischemia. Denies current symptoms of chest pain. Not a good candidate to consider further intervention because of her chronic kidney disease stage IV -Imdur 30 mg by mouth daily CHRONIC KIDNEY DISEASE STAGE IV-renal function has remained stable thus far - monitor urine output and renal function during hospital stay BILATERAL VENOUS STASIS ULCERATIONS-present on admission -Consult Dr. Cavanaugh relate this next week for assistance in management -Continue current dressing changes MAINTENANCE ISSUES -DVT prophylaxis; Lovenox 30 mg subcutaneous daily -GI prophylaxis; not indicated -Richards catheter; not required -Nutrition; regular diet -Nicotine dependence; not required CODE STATUS-FULL CODE ADMISSION STATUS-patient will be admitted to inpatient status, expect at least a 2 night hospital stay for evaluation and management of problems as outlined above. At the time of this admission I do not reasonably expected evaluation and management of this problem will require more than a 96 hour hospital stay. DISPOSITION-anticipate discharge to home after the hospital stay. PRIMARY CARE PROVIDER-Dr. Begum
--- NOTE | 2017-05-04 16:27 | PCM.DCSUM1 ---
Discharge Summary - Hospital Course Brief History: Ms. Hidalgo is a 72-year-old woman who is admitted through the emergency department with increased shortness of breath and atrial fibrillation with rapid ventricular response. - Discharge Data Discharge Date: 05/05/17 Discharge Disposition: DC/Tfer to SNF 03 Condition: Fair - Discharge Diagnosis/Problem(s) (1) CKD (chronic kidney disease) stage 4, GFR 15-29 ml/min SNOMED Code(s): 059640911 ICD Code: N18.4 - CHRONIC KIDNEY DISEASE, STAGE 4 (SEVERE) Status: Acute Current Visit: Yes (2) Atrial fibrillation with RVR SNOMED Code(s): 895889629230082 ICD Code: I48.91 - UNSPECIFIED ATRIAL FIBRILLATION Status: Acute Current Visit: Yes (3) Anticoagulant not tolerated SNOMED Code(s): 154333118 ICD Code: [id number] - Status: Acute Current Visit: Yes (4) S/P AVR (aortic valve replacement) Status: Acute Current Visit: Yes (5) Acquired arteriovenous malformation of stomach SNOMED Code(s): 331225836 ICD Code: K31.819 - ANGIODYSPLASIA OF STOMACH AND DUODENUM WITHOUT BLEEDING Status: Chronic Current Visit: No (6) Coronary artery disease SNOMED Code(s): 63072051 ICD Code: I25.10 - ATHSCL HEART DISEASE OF [place] CORONARY ARTERY W/O ANG PCTRS Status: Chronic Current Visit: No Qualifiers: Coronary Disease-Associated Artery/Lesion type: [place] artery [place] vs. transplanted heart: [place] heart Associated angina: without angina Qualified Code(s): I25.10 - Atherosclerotic heart disease of [place] coronary artery without angina pectoris (7) COPD (chronic obstructive pulmonary disease) SNOMED Code(s): 87257739 ICD Code: J44.9 - CHRONIC OBSTRUCTIVE PULMONARY DISEASE, UNSPECIFIED Status : Chronic Current Visit: No Qualifiers: COPD type: emphysema Emphysema type: unspecified Qualified Code(s): J43.9 - Emphysema, unspecified (8) Anemia in chronic kidney disease SNOMED Code(s): 576935484 ICD Code: N18.9 - CHRONIC KIDNEY DISEASE, UNSPECIFIED; D63.1 - ANEMIA IN CHRONIC KIDNEY DISEASE Status: Acute Current Visit: Yes - Patient Summary/Data Hospital Course: Ms. 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 She developed palpitations with weakness and increased shortness of breath. She does have a known long-standing history of atrial fibrillation, rates tend to run in the 110-120 range. She has been intolerant of anticoagulation because of recurrent GI bleeds. Family reports that she has been more agitated and confused over the past few months. She was admitted to the hospital and initially started on IV diltiazem for management of her rate. The following day she was converted to oral diltiazem but continued to run rates even into the 150s and 160s. It did seem that she would have improvement in her heart rate with diuretic therapy for management of her fluid overload and pulmonary edema. She was treated with IV diuretics daily until the day prior to discharge. She did diurese during the hospital stay and had significantly less shortness of breath at the time of discharge. Because of ongoing elevated rate she was started on an amiodarone infusion and will be discharged on amiodarone 400 mg daily for 2 weeks then 200 mg daily thereafter. Because of delirium with agitation likely secondary to dementia she was started on melatonin 10 mg by mouth daily at bedtime. Her chronic kidney disease remained stable throughout hospitalization and actually improved with diuresis. On admission she had significant anemia with a hemoglobin of 7.2, she was transfused one unit of red blood cells. 2 days prior to discharge hemoglobin was noted to be 7.9 and given her underlying congestive heart failure, COPD she was transfused one additional unit of red blood cells. Hemoglobin prior to discharge was 8.8. She was seen and evaluated by Dr. Cavanaugh for management of her ongoing venous stasis ulcerations and will see Dr. Cavanaugh for follow- up after hospitalization. Because of probable dementia and difficulty with delirium, appointment has been made for neuropsychiatric evaluation as well as appointment with psychiatry for assistance with medical management. Activity will be as tolerated and she will resume a 2 g sodium diet. While at the [facility] will receive daily restorative physical therapy and occupational therapy. Follow-up labs will be obtained in one week including a BMP and CBC. - Patient Instructions Diet: Low Sodium Activity: As Tolerated Other/Special Instructions: Follow-up labs in one week, BMP and CBC. Daily physical therapy and occupational therapy while at the [facility]. Continue dressing changes to both lower extremities as ordered by Dr. Cavanaugh. Follow- up appointment scheduled with Dr. Cavanaugh for ongoing management of venous stasis ulcers. Please schedule appointment with Dr. Tijerina neuropsychiatric evaluation. Please schedule psychiatry appointment for assistance in management of delirium related to probable dementia. - Discharge Plan Prescriptions/Med Rec: Amiodarone [Cordarone] 400 mg PO DAILY #30 tab Diltiazem HCl [Diltiazem 24Hr Cd] 120 mg PO DAILY #30 cap.er.24h Isosorbide Mononitrate [Imdur] 30 mg PO DAILY #30 tab.er Melatonin 10 mg PO DAILY #30 tablet Home Medications: Home Meds Albuterol [Proventil HFA] 1 puff INH QID 02/08/17 [History] Albuterol/Ipratropium [DuoNeb 3.0-0.5 MG/3 ML] 1 dose INH QID 02/08/17 [History] Aspirin [Halfprin] 1 tab PO DAILY 02/08/17 [History] Cholecalciferol (Vitamin D3) [Vitamin D3] 1 tab PO DAILY 02/08/17 [History] Multivitamin [Multi-Vitamin Daily] 1 tab PO DAILY 02/08/17 [History] Nebulizer [[place] Disposable Nebulizer] 1 ea INH Q4H PRN 02/08/17 [History] Nitroglycerin [Nitrostat] 1 tab PO ASDIRECTED 02/08/17 [History] Omeprazole 1 tab PO BID 02/08/17 [History] Oxybutynin [Oxybutynin ER] 10 mg PO DAILY 02/08/17 [History] traZODone 1 tab PO BEDTIME 02/08/17 [History] Bumetanide 2 mg PO BID 04/29/17 [History] Iron Polysaccharides Complex [Ferrex 150] 150 mg PO DAILY 04/29/17 [History] Rosuvastatin Calcium 5 mg PO BEDTIME 04/29/17 [History] Lidocaine 2% [Xylocaine 2% Jelly] 0 ml TOP ASDIRECTED PRN 04/30/17 [History] Magnesium Chloride [Mag Delay] 535 mg PO DAILY 04/30/17 [History] Metoprolol Tartrate [Lopressor] 50 mg PO BID 04/30/17 [History] Triamcinolone Acetonide [Kenalog 0.1% Crm] 0 gm TOP BID 04/30/17 [History] Amiodarone [Cordarone] 400 mg PO DAILY #30 tab 05/04/17 [Rx] Diltiazem HCl [Diltiazem 24Hr Cd] 120 mg PO DAILY #30 cap.er.24h 05/04/17 [Rx] Isosorbide Mononitrate [Imdur] 30 mg PO DAILY #30 tab.er 05/04/17 [Rx] Melatonin 10 mg PO DAILY #30 tablet 05/04/17 [Rx] predniSONE [Prednisone] 30 mg PO DAILY #90 05/04/17 [Rx] Forms: ED Department Discharge Referrals: Howard De Oliveira NP [Primary Care Provider] - Anthony Cavanaugh MD [Physician] - 05/11/17 11:00 am - Patient Data Vitals - Most Recent: Last Vital Signs Temp 97.6 F 05/04/17 07:00 Pulse 100 05/04/17 14:39 Resp 14 05/04/17 14:00 BP 126/58 L 05/04/17 14:00 Pulse Ox 96 05/04/17 14:00 Weight - Most Recent: 139 lb 1.787 oz I&O - Last 24 hours: Intake & Output 05/04/17 05/04/17 05/04/17 06:59 14:59 22:59 Intake Total 360 Output Total 300 Balance 60 Lab Results - Last 24 hrs: Laboratory Results - last 24 hr 04/30/17 05/04/17 05/04/17 Range/Units 06:00 04:40 05:00 WBC 6.1 (4.5-11.0) K/uL RBC 3.05 L (3.30-5.50) M/uL Hgb 8.8 L (12.0-15.0) g/dL Hct 29.6 L (36.0-48.0) % MCV 97 (80-98) fL MCH 29 (27-31) pg MCHC 30 L (32-36) % Plt Count 147 L (150-400) K/uL Neut % (Auto) 82 H (36-66) % Lymph % (Auto) 13 L (24-44) % Davison % (Auto) 5 (2-6) % Eos % (Auto) 0 L (2-4) % Baso % (Auto) 0 (0-1) % Total Counted 100 Segmented Neutrophils 70 (38-70) % Band Neutrophils 1 (0-8) % Lymphocytes 20 L (21-49) % Monocytes 7 (3-11) % Eosinophils 2 (0-7) % Diff Path Review See below WBC Morphology Normal Platelet Morphology Decreased RBC Morphology Normal Sodium 143 (140-148) mmol/L Potassium 4.1 (3.6-5.2) mmol/L Chloride 106 (100-108) mmol/L Carbon Dioxide 29 (21-32) mmol/L Anion Gap 8.1 (5.0-14.0) mmol/L BUN 60 H (7-18) mg/dL Creatinine 1.7 H (0.6-1.0) mg/dL Est Cr Clr Drug Dosing 21.17 mL/min Estimated GFR (MDRD) 29 L (>60) Glucose 198 H (74-106) mg/dL Calcium 8.2 L (8.5-10.1) mg/dL Magnesium 2.0 (1.8-2.4) mg/dL Ref Lab Pathologist See below Med Orders - Current: Current Medications Acetaminophen (Tylenol) 650 mg PO Q4H PRN PRN Reason: Pain (Mild 1-3)/fever Last Admin: 05/02/17 21:12 Dose: 650 mg Hydrocodone Bitart/Acetaminophen ([place] 325-5 Mg) 1 tab PO Q6H PRN PRN Reason: Pain Last Admin: 05/03/17 17:45 Dose: 1 tab Albuterol (Proventil Neb Soln) 2.5 mg NEB Q4H PRN PRN Reason: Shortness Of Breath/wheezing Last Admin: 05/02/17 04:58 Dose: 2.5 mg Albuterol (Ventolin Hfa) 0 gm INH QID PRN PRN Reason: SHORTNESS OF BREATH Albuterol/Ipratropium (Duoneb 3.0-0.5 Mg/3 Ml) 3 ml INH QIDRT [facility] Last Admin: 05/04/17 14:39 Dose: Not Given Amiodarone HCl (Cordarone) 200 mg PO BID [facility] Last Admin: 05/04/17 09:29 Dose: 200 mg Aspirin (Halfprin) 81 mg PO DAILY [facility] Last Admin: 05/04/17 09:28 Dose: 81 mg Bumetanide (Bumex) 2 mg PO BID [facility] Last Admin: 05/04/17 09:27 Dose: 2 mg Diltiazem HCl (Cardizem Cd) 120 mg PO DAILY [facility] Last Admin: 05/04/17 09:29 Dose: 120 mg Enoxaparin Sodium (Lovenox) 30 mg SUBCUT DAILY [facility] Last Admin: 05/04/17 09:28 Dose: 30 mg Isosorbide Mononitrate (Imdur) 30 mg PO DAILY [facility] Last Admin: 05/04/17 09:29 Dose: 30 mg Lorazepam (Ativan) 0.5 mg PO Q6H PRN PRN Reason: Anxiety Last Admin: 05/04/17 05:50 Dose: 0.5 mg Melatonin (Melatonin) 9 mg PO BEDTIME [facility] Last Admin: 05/03/17 21:03 Dose: 9 mg Metoprolol Tartrate (Lopressor) 50 mg PO BID [facility] Last Admin: 05/04/17 09:29 Dose: 50 mg Pantoprazole Sodium (Protonix) 40 mg PO ACBREAKFAST [facility] Last Admin: 05/04/17 07:18 Dose: 40 mg Polysaccharide Iron Complex (Ferrex 150) 150 mg PO DAILY [facility] Last Admin: 05/04/17 09:28 Dose: 150 mg Prednisone (Prednisone) 30 mg PO DAILY [facility] Last Admin: 05/04/17 09:27 Dose: 30 mg Promethazine HCl (Phenergan) 25 mg PO Q6H PRN PRN Reason: Nausea able to take PO Rosuvastatin Calcium (Crestor) 5 mg PO BEDTIME [facility] Last Admin: 05/03/17 21:02 Dose: 5 mg Trazodone HCl (Trazodone) 100 mg PO BEDTIME [facility] Last Admin: 05/03/17 21:00 Dose: 100 mg Discontinued Medications Hydrocodone Bitart/Acetaminophen ([place] 325-5 Mg) 1 tab PO ONETIME ONE Stop: 04/29/17 23:13 Last Admin: 04/29/17 23:34 Dose: 1 tab Amiodarone HCl (Cordarone) 150 mg IVPUSH ONETIME ONE PRN Reason: Protocol Stop: 05/02/17 09:31 Last Admin: 05/02/17 09:49 Dose: 150 mg Digoxin (Lanoxin) 125 mcg IVPUSH ONETIME ONE Stop: 04/30/17 03:13 Last Admin: 04/30/17 03:26 Dose: 125 mcg Digoxin (Lanoxin) 125 mcg IVPUSH ONETIME ONE Stop: 05/02/17 08:31 Last Admin: 05/02/17 08:43 Dose: 125 mcg Diltiazem HCl (Diltiazem) 10 mg IVPUSH ONETIME ONE Stop: 04/30/17 00:14 Last Admin: 04/30/17 00:57 Dose: Not Given Diltiazem HCl (Cardizem) 15 mg PO Q6HR [facility] Last Admin: 04/30/17 10:32 Dose: 15 mg Diltiazem HCl (Cardizem) 30 mg PO Q6HR [facility] Last Admin: 05/01/17 09:06 Dose: 30 mg Diltiazem HCl (Cardizem Cd) 120 mg PO DAILY [facility] Last Admin: 05/01/17 10:40 Dose: 120 mg Furosemide (Lasix) 40 mg IVPUSH ONETIME ONE Stop: 04/30/17 00:50 Last Admin: 04/30/17 00:54 Dose: 40 mg Furosemide (Lasix) 80 mg IVPUSH ONETIME ONE Stop: 04/30/17 19:00 Last Admin: 04/30/17 19:11 Dose: 80 mg Furosemide (Lasix) 80 mg IVPUSH ONETIME ONE Stop: 05/01/17 08:31 Last Admin: 05/01/17 08:20 Dose: 80 mg Furosemide (Lasix) 80 mg IVPUSH ONETIME ONE Stop: 05/01/17 21:48 Last Admin: 05/01/17 22:10 Dose: 80 mg Furosemide (Lasix) Confirm Administered Dose 100 mg .ROUTE .STK-MED ONE Stop: 05/01/17 21:51 Last Admin: 05/01/17 22:18 Dose: Not Given Furosemide (Lasix) 80 mg IVPUSH ONETIME ONE Stop: 05/02/17 08:31 Last Admin: 05/02/17 08:40 Dose: 80 mg Furosemide (Lasix) 80 mg IVPUSH ONETIME ONE Stop: 05/03/17 08:31 Last Admin: 05/03/17 09:10 Dose: 80 mg Heparin Sodium (Porcine) (Heparin Sodium) 5,000 units IVPUSH Q8H [facility] Last Admin: 04/30/17 03:37 Dose: Not Given Heparin Sodium (Porcine) (Heparin Sodium) 5,000 units SUBCUT Q8H [facility] Last Admin: 04/30/17 03:27 Dose: 5,000 units Heparin Sodium (Porcine) (Heparin Sodium) 5,000 units SUBCUT Q8H [facility] Diltiazem HCl 100 mg/ Sodium (Chloride) 100 mls @ 5 mls/hr IV TITRATE [facility]; 5 MG /HR PRN Reason: Protocol Last Admin: 04/30/17 02:27 Dose: 2.5 mg/hr, 2.5 mls/hr Sodium Chloride (Normal Saline) 1,000 mls @ 0 mls/hr IV ASDIRECTED [facility] PRN Reason: KVO Last Admin: 04/30/17 02:57 Dose: 25 mls/hr Ferric Sodium Gluconate Complex 250 mg/ Sodium Chloride 120 mls @ 50 mls/hr IV ONETIME ONE Stop: 04/30/17 15:23 Last Admin: 04/30/17 12:46 Dose: 50 mls/hr Ferric Sodium Gluconate Complex 250 mg/ Sodium Chloride 120 mls @ 50 mls/hr IV ONETIME ONE Stop: 05/01/17 11:23 Last Admin: 05/01/17 09:37 Dose: 50 mls/hr Amiodarone HCl 450 mg/ (Dextrose/Water) 250 mls @ 33.33 mls/hr IV ASDIRECTED [facility]; 1 MG/MIN PRN Reason: Protocol Last Admin: 05/03/17 02:32 Dose: 0.5 mg/min, 16.66 mls/hr Magnesium Sulfate 2 gm/ Premix 50 mls @ 25 mls/hr IV ONETIME ONE Stop: 05/03/17 10:59 Last Admin: 05/03/17 09:13 Dose: 25 mls/hr Lorazepam (Ativan) 1 mg IV Q6H PRN PRN Reason: Nausea/Vomiting Last Admin: 05/01/17 09:36 Dose: 1 mg Lorazepam (Ativan) 0.5 mg IV Q4H PRN PRN Reason: Anxiety Stop: 05/02/17 00:53 Last Admin: 05/01/17 21:11 Dose: 0.5 mg Lorazepam (Ativan) 1 mg IV Q4H PRN PRN Reason: Anxiety Last Admin: 05/02/17 21:26 Dose: 1 mg Metoprolol Tartrate (Lopressor) 25 mg PO ONETIME ONE Stop: 04/30/17 00:47 Last Admin: 04/30/17 00:52 Dose: 25 mg Morphine Sulfate (Morphine) 2 mg IVPUSH Q2H PRN PRN Reason: Pain (severe 7-10) Last Admin: 05/02/17 18:17 Dose: 2 mg *Q Meaningful Use (DIS) - VTE *Q VTE Criteria *Q: - Stroke *Q Stroke Criteria *Q: - AMI *Q AMI Criteria *Q:
[2017-05-04] MEDS: Melatonin 3 MG Tab PO SCH (20:12)
[2017-05-04] MEDS: traZODone 50 MG Tab PO SCH (20:12)
[2017-05-04] MEDS: Rosuvastatin 10 MG Tab PO SCH (20:13)
[2017-05-04] MEDS ORDERED: Melatonin 3 MG Tab PO SCH (21:00)
[2017-05-05] MEDS: Albuterol/Ipratropium 3.0-0.5 MG/3 ML Neb Soln INH SCH ×2 (07:20→11:40)
[2017-05-05] MEDS: Pantoprazole 40 MG Tab.CR PO SCH (10:14)
[2017-05-05] MEDS: predniSONE 10 MG Tab PO SCH (10:16)
[2017-05-05] MEDS: Diltiazem 120 MG Cap.CD PO SCH (10:16)
[2017-05-05] MEDS: Bumetanide 1 MG Tab PO SCH (10:24)
[2017-05-05] MEDS: Amiodarone 200 MG Tab PO SCH (10:24)
[2017-05-05] MEDS: Metoprolol Tartrate 50 MG Tab PO SCH (10:24)
[2017-05-05] MEDS: Isosorbide Mononitrate 30 MG Tab.ER PO SCH (10:25)
[2017-05-05] MEDS: Iron Polysaccharides Complex 150 MG Cap PO SCH (10:25)
[2017-05-05] MEDS: Aspirin 81 MG Tab.EC PO SCH (10:26)
[2017-05-05] MEDS: Enoxaparin 30 MG/0.3 ML Syringe SUBCUT SCH ×2 (10:26→12:11)
== END 2017-05-05 12:24 | DRG 309 ==
LOC: JP.ED 21:55 → JP.ICU 04-30 01:32
PROVIDERS: ADMIT Family Medicine; ATTEND Hospitalist
PROC: 30233N1 Transfusion of Nonautologous Red Blood Cells into Peripheral Vein, Percutaneous Approach (ICD-10-PCS; principal; 2017-04-30)
PROC: 30233N1 Transfusion of Nonautologous Red Blood Cells into Peripheral Vein, Percutaneous Approach (ICD-10-PCS; 2017-05-03)
DX: I48.2 Chronic atrial fibrillation (principal); I13.0 Hypertensive heart and chronic kidney disease with heart failure and stage 1 through stage 4 chronic kidney disease, or unspecified chronic kidney disease; N18.4 Chronic kidney disease, stage 4 (severe); N02.8 Recurrent and persistent hematuria with other morphologic changes; Z87.891 Personal history of nicotine dependence; L97.919 Non-pressure chronic ulcer of unspecified part of right lower leg with unspecified severity; L97.929 Non-pressure chronic ulcer of unspecified part of left lower leg with unspecified severity; I50.9 Heart failure, unspecified; I25.10 Atherosclerotic heart disease of native coronary artery without angina pectoris; R07.9 Chest pain, unspecified; R06.02 Shortness of breath; D63.1 Anemia in chronic kidney disease; J44.9 Chronic obstructive pulmonary disease, unspecified; R74.8 Abnormal levels of other serum enzymes; K31.819 Angiodysplasia of stomach and duodenum without bleeding; T45.515S Adverse effect of anticoagulants, sequela; I87.8 Other specified disorders of veins; I83.009 Varicose veins of unspecified lower extremity with ulcer of unspecified site; F32.9 Major depressive disorder, single episode, unspecified; F41.9 Anxiety disorder, unspecified; F03.90 Unspecified dementia, unspecified severity, without behavioral disturbance, psychotic disturbance, mood disturbance, and anxiety; R41.0 Disorientation, unspecified; K59.09 Other constipation; M79.7 Fibromyalgia; Z85.89 Personal history of malignant neoplasm of other organs and systems; E78.5 Hyperlipidemia, unspecified; Z95.2 Presence of prosthetic heart valve; Z86.73 Personal history of transient ischemic attack (TIA), and cerebral infarction without residual deficits; I25.2 Old myocardial infarction; H54.7 Unspecified visual loss; Z95.1 Presence of aortocoronary bypass graft; K58.9 Irritable bowel syndrome, unspecified; Z79.82 Long term (current) use of aspirin; Z79.52 Long term (current) use of systemic steroids; Z91.041 Radiographic dye allergy status; Z91.013 Allergy to seafood; Z91.018 Allergy to other foods; Z91.048 Other nonmedicinal substance allergy status
CPT/HCPCS: 36415 ×2; 71045 ×2; 80053; 83735; 83880; 85025; 93005; A9270 ×2; J1940; 36430; 80048; 81001; 82607; 82746; 83550; 83615; 84443; 84484; 85018; 85045; 85060; 85610; 86850; 86900; 86901; 86920; 86922; 87086; 93306; 94640; 96374; 96375; 97110-GP; 97162-GP; 97530-GP; 99284; 99285-25; J0282; J1160; J1642; J1644; J1650; J2060; J2270; J2916; J3475; J3490; J7030; J7040; J7060; J7620; P9016

== ENCOUNTER 2017-06-04 06:56 | Day surgery (SDC) | payer MEDICARE, BC ==
[2017-06-04] MEDS ORDERED: Lidocaine 1% with EPINEPHrine 1:100,000 50 ML MDV ONE (07:07)
[2017-06-04] MEDS ORDERED: Bupivacaine 0.5% 50 ML MDV ONE (07:07)
[2017-06-04] MEDS ORDERED: Lactated Ringers 1,000 ML IV SCH (07:15)
[2017-06-04] MEDS ORDERED: ceFAZolin 2 GM in Premix Bag 1 BAG IV ONE (07:45)
[2017-06-04] MEDS ORDERED: Propofol 200 MG/20 ML SDV ONE (08:20)
[2017-06-04] MEDS ORDERED: Bacitracin Oint 1 GM U/D Packet ONE (08:49)
--- NOTE | 2017-06-04 12:44 | OR ---
DATE OF PROCEDURE: 06/04/2017 PROCEDURE PERFORMED: Removal of tunneled hemodialysis catheter, right jugular vein. COMPLICATIONS: None. CYBER SECURITY: None. ANESTHESIA: MAC. RISKS: Risks, benefits, alternatives, and limitations including, but not limited to infection, bleeding, and chronic wounds were explained to the patient who wished to proceed. PREOPERATIVE DIAGNOSIS: Acute kidney injury, no longer requiring hemodialysis. POSTOPERATIVE DIAGNOSIS: Acute kidney injury, no longer requiring hemodialysis. PROCEDURE IN DETAIL: The patient was placed in supine position. The area was prepped and draped. This was anesthetized with 1% lidocaine, and the stitch was removed, and the device was removed. Direct pressure was held on the jugular vein for 10 minutes. Bacitracin dressings were applied. The patient tolerated the procedure well. Of note, the etiology for taking the patient to the operating room was related to the patient's fibromyalgia and anxiety. Please see clinic note for further details. Anthony Cavanaugh MD /[phone]
== END 2017-06-04 09:56 | disposition home or self-care (01) ==
LOC: JP.SDS 06:56
PROVIDERS: ATTEND Surgery
DX: N17.9 Acute kidney failure, unspecified (principal); J44.9 Chronic obstructive pulmonary disease, unspecified; K21.9 Gastro-esophageal reflux disease without esophagitis; D64.9 Anemia, unspecified
CPT/HCPCS: 36415; 36430; 86850; 86900; 86901; 86920; 86922; J0690; J2704; J7120; P9016

== ENCOUNTER 2017-07-08 18:56 | Observation (INO) | payer MEDICARE, BC ==
--- NOTE | 2017-07-08 21:15 | EDM.PDOC ---
ED HPI GENERAL MEDICAL PROBLEM - General Chief Complaint: General Stated Complaint: BALANCE ISSUES/WEAKNESS Time Seen by Provider: 07/08/17 21:00 Source of Information: Reports: Patient, Family, Old Records History Limitations: Reports: No Limitations - History of Present Illness INITIAL COMMENTS - FREE TEXT/NARRATIVE: 72 yo female from the [facility] presents with weakness for the past 36 hrs to the point where she cannot stand or even get to a sitting position by herself. She has no new pain or fever. Has been eating and drinking normally. Was temporarily dialyzed until 6 weeks ago after an illness. NSH placement has been discussed, but she has wanted to stay in her home as long as possible. She thinks that she now needs a NSH and also is concerned about her new weakness. Even before 36 hrs ago it was hard for her to be at home with the amt of care that was available there. Onset: Sudden Onset Date: 07/06/17 Duration: Hour(s): (~36 hrs ago) Location: Reports: Generalized (weakness) Quality: Reports: Other (no new pain) Severity: Moderate Improves with: Reports: None Worsens with: Reports: Other (unknown) Context: Reports: Other (chronically ill with multiple medical conditions. ) Associated Symptoms: Reports: Confusion (at times at night.), Shortness of Breath (with exertion mainly, no orthopnea), Weakness. 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) (none) - Related Data Allergies Allergy/AdvReac Type Severity Reaction Status Date / Time bupropion Allergy Bleeding Verified 07/08/17 20:26 gluten Allergy Other Verified 07/08/17 20:26 gold Au 198 Allergy Hives Verified 07/08/17 20:26 Iodinated Contrast- Oral and Allergy Itching Verified 07/08/17 20:26 IV Dye silver Allergy Hives Verified 07/08/17 20:26 escitalopram AdvReac Drowsiness Verified 07/08/17 20:26 sertraline AdvReac Stomach Verified 07/08/17 20:26 Upset shellfish derived AdvReac Vomiting Verified 07/08/17 20:26 shrimp AdvReac Vomiting Verified 07/08/17 20:26 Sulfa (Sulfonamide AdvReac Nausea and Verified 07/08/17 20:26 Antibiotics) Vomiting venlafaxine AdvReac Nausea and Verified 07/08/17 20:26 Vomiting metal catheter connector Allergy Other Uncoded 07/08/17 20:26 Home Meds: Home Meds Albuterol [Proventil HFA] 1 puff INH Q6HR PRN 02/08/17 [History] Albuterol/Ipratropium [DuoNeb 3.0-0.5 MG/3 ML] 1 dose INH Q6HR 02/08/17 [History ] Cholecalciferol (Vitamin D3) [Vitamin D3] 2,000 units PO DAILY 02/08/17 [History ] Multivitamin [Multi-Vitamin Daily] 1 tab PO DAILY 02/08/17 [History] Nebulizer [DevilbiBag of Ice Disposable Nebulizer] 1 ea INH Q4H PRN 02/08/17 [History] Nitroglycerin [Nitrostat] 0.4 mg PO ASDIRECTED 02/08/17 [History] Oxybutynin [Oxybutynin ER] 10 mg PO DAILY 02/08/17 [History] Bumetanide 2 mg PO BID 04/29/17 [History] Iron Polysaccharides Complex [Ferrex 150] 150 mg PO BID 04/29/17 [History] Rosuvastatin Calcium 5 mg PO BEDTIME 04/29/17 [History] Metoprolol Tartrate [Lopressor] 100 mg PO BID 04/30/17 [History] Diltiazem HCl [Diltiazem 24Hr Cd] 120 mg PO DAILY #30 cap.er.24h 05/04/17 [Rx] Isosorbide Mononitrate [Imdur] 30 mg PO DAILY #30 tab.er 05/04/17 [Rx] Melatonin 10 mg PO DAILY #30 tablet 05/04/17 [Rx] Amiodarone [Cordarone] 200 mg PO DAILY 05/25/17 [History] Docusate Sodium [Colace] 200 mg PO DAILY 05/25/17 [History] Hydrocodone/Acetaminophen [Hydrocodon-Acetaminophen 5-325] 1 each PO DAILY PRN MDD 1 tablet 05/25/17 [History] Hydrocodone/Acetaminophen [Hydrocodon-Acetaminophen 5-325] 1 tab PO DAILY PRN [History] Magnesium Chloride [Mag-64] 1 tab PO DAILY 07/08/17 [History] Mirtazapine 15 mg PO DAILY 07/08/17 [History] Omeprazole 40 mg PO BID 07/08/17 [History] QUEtiapine Fumarate [Quetiapine Fumarate] 25 mg PO BID PRN 07/08/17 [History] Triamcinolone Acetonide [Triamcinolone Acetonide 0.1% Oint] 15 gm TOP BID [History] Past Medical History HEENT History: Reports: Impaired Vision Cardiovascular History: Reports: Aneurysm, Arrhythmia, Blood Clots/VTE/DVT, CAD , Heart Murmur, High Cholesterol, Hypertension, CA Other Cardiovascular History: THREE VESSEL BYPASS IN 2012. two brain aneurysms dx approx 1999. States they have not changed at all. 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: Musculoskeletal History: Reports: Fracture Other Musculoskeletal History: HIP FRACTURE Neurological History: Reports: CVA Psychiatric History: Reports: Anxiety, Depression, Suicide Attempt, Other (See Below) Other Psychiatric History: currently seeing [facility] psych Dr Harrell for sundowning and neuro psychological testing for dementia Hematologic History: Reports: Anemia, B12 Deficiency, Blood Transfusion(s), Iron Deficiency - Infectious Disease History Infectious Disease History: Reports: Chicken Pox, Influenza, Measles - Past Surgical History Head Surgeries/Procedures: Reports: None HEENT Surgical History: Reports: Adenoidectomy, Cataract Surgery, Eye Surgery, Tonsillectomy Other HEENT Surgeries/Procedures: RIGHT EYE Cardiovascular Surgical History: Reports: Coronary Artery Bypass, Valve Replacement Respiratory Surgical History: Reports: None GI Surgical History: Reports: Appendectomy, Colonoscopy, EGD Other GI Surgeries/Procedures: MEKELS DIVERTICULI, ESOPHAGEAL VARACESE Female Surgical History: Reports: Oophorectomy, Tubal Ligation, Ureteral Stent Other Female Surgeries/Procedures: bladder sling, but mesh has since been removed Neurological Surgical History: Reports: Other (See Below) Other Neurological Surgeries/Procedures: SPINAL STENOSIS Musculoskeletal Surgical History: Reports: None, Other (See Below) Other Musculoskeletal Surgeries/Procedures:: hip surgery Dermatological Surgical History: Reports: None Social & Family History - Family History Family Medical History: Noncontributory Cardiac: Reports: CAD - Tobacco Use Smoking Status *Q: Former Smoker Years of Tobacco use: 50 Packs/Tins Daily: 1 Used Tobacco, but Quit: Yes Month/Year Tobacco Last Used: 12/24/2016 Second Hand Smoke Exposure: No - Caffeine Use Caffeine Use: Reports: Coffee - Recreational Drug Use Recreational Drug Use: No ED ROS GENERAL - Review of Systems Review Of Systems: See Below Constitutional: Reports: Weakness (generalized). Denies: Fever, Chills, Diaphoresis, Decreased Appetite HEENT: Reports: No Symptoms Respiratory: Reports: Shortness of Breath (with exertion) Cardiovascular: Reports: No Symptoms, Palpitations (Hx of afib). Denies: Edema , Orthopnea Endocrine: Reports: No Symptoms GI/Abdominal: Reports: Abdominal Pain (Some mild RUQ discomfort.) : Reports: Incontinence (not new) Musculoskeletal: Reports: Back Pain (mild, since a fall 2 weeks ago. ) Skin: Reports: No Symptoms Neurological: Reports: Confusion (at night at times) Psychiatric: Reports: No Symptoms ED EXAM, GENERAL - Physical Exam Exam: See Below Exam Limited By: No Limitations General Appearance: Alert, WD/WN, No Apparent Distress Eye Exam: Bilateral Eye: Normal Inspection, Other (pale conjunctivas) Ears: Normal External Exam, Normal Canal, Hearing Grossly Normal Ear Exam: Bilateral Ear: Auricle Normal, Canal Normal, TM normal Nose: Normal Inspection, Normal Mucosa, No Blood Throat/Mouth: Normal Inspection, Normal Lips, Normal Oropharynx, Normal Voice, No Airway Compromise Head: Atraumatic, Normocephalic Neck: Normal Inspection, Supple, Non-Tender Respiratory/Chest: No Respiratory Distress, Lungs Clear, Normal Breath Sounds, No Accessory Muscle Use Cardiovascular: Irregularly Irregular Peripheral Pulses: 1+: Posterior Tibial (L), Posterior Tibial (R), Dorsalis Pedis (L), Dorsalis Pedis (R), 2+: Popliteal (L), Popliteal (R) GI/Abdominal: Normal Bowel Sounds, Soft, No Distention, Tender (mild RUQ) Back Exam: Normal Inspection Extremities: Normal Inspection, Normal Range of Motion, Non-Tender, No Pedal Edema Neurological: Alert, Oriented, CN II-XII Intact, Normal Cognition, No Motor/ Sensory Deficits Psychiatric: Normal Affect, Normal Mood Skin Exam: Warm, Dry, Intact, Normal Color, No Rash Lymphatic: No Adenopathy Course - Vital Signs Text/Narrative:: Dr. De La Cruz called @ 0079h Last Recorded V/S: Last Vital Signs Temp 37.4 C 07/08/17 20:33 Pulse 79 07/08/17 22:20 Resp 20 07/08/17 22:20 BP 113/53 L 07/08/17 22:20 Pulse Ox 92 L 07/08/17 22:20 - Orders/Labs/Meds Orders: Active Orders 24 hr Category Date Time Status Cardiac Monitoring [RC] .As Directed Care 07/08/17 21:00 Active CULTURE URINE [RM] Stat Lab 07/08/17 21:41 Received UA W/MICROSCOPIC [URIN] Stat Lab 07/08/17 21:24 Ordered Sodium Chloride 0.9% [Saline Flush] Med 07/08/17 21:39 Active 10 ml FLUSH ASDIRECTED PRN Saline Lock Insert [OM.PC] Routine Oth 07/08/17 21:39 Ordered Medication Orders Sodium Chloride (Saline Flush) 10 ml FLUSH ASDIRECTED PRN PRN Reason: Keep Vein Open Last Admin: 07/08/17 22:17 Dose: 10 ml Labs: Laboratory Tests 07/08/17 07/08/17 07/08/17 Range/Units 21:10 21:10 21:24 WBC 8.7 (4.5-11.0) K/uL RBC 3.55 (3.30-5.50) M/uL Hgb 8.9 L (12.0-15.0) g/dL Hct 31.3 L (36.0-48.0) % MCV 88 (80-98) fL MCH 25 L (27-31) pg MCHC 28 L (32-36) % Plt Count 275 (150-400) K/uL Sodium 144 (140-148) mmol/L Potassium 3.9 (3.6-5.2) mmol/L Chloride 104 (100-108) mmol/L Carbon Dioxide 30 (21-32) mmol/L Anion Gap 9.7 (5.0-14.0) mmol/L BUN 26 H D (7-18) mg/dL Creatinine 1.6 H (0.6-1.0) mg/dL Est Cr Clr Drug Dosing 22.49 mL/min Estimated GFR (MDRD) 32 L (>60) Glucose 115 H (74-106) mg/dL Calcium 8.5 (8.5-10.1) mg/dL Troponin I < 0.017 (0.000-0.056) ng/mL Urine Color Yellow Urine Appearance Cloudy Urine pH 6.0 (4.5-8.0) Ur Specific [place] 1.010 (1.008-1.030) Urine Protein 100 H (NEGATIVE) mg/dL Urine Glucose (UA) Normal (NEGATIVE) mg/dL Urine Ketones Negative (NEGATIVE) mg/dL Urine Occult Blood Large (NEGATIVE) Urine Nitrite Positive H (NEGATIVE) Urine Bilirubin Negative (NEGATIVE) Urine Urobilinogen Normal (NORMAL) mg/dL Ur Leukocyte Esterase Large (NEGATIVE) Urine RBC 20-30 H (0-5) Urine WBC Packed H (0-5) Ur Epithelial Cells Rare Amorphous Sediment Not seen Urine Bacteria Many Urine Mucus Not seen Meds: Medications Generic Name Dose Route Start Last Admin Trade Name Freq PRN Reason Stop Dose Admin Sodium Chloride 10 ml 07/08/17 21:39 07/08/17 22:17 Saline Flush FLUSH 10 ml ASDIRECTED PRN Administration Keep Vein Open Discontinued Medications Generic Name Dose Route Start Last Admin Trade Name Freq PRN Reason Stop Dose Admin Ceftriaxone Sodium 1 gm/ 50 mls @ 100 mls/hr 07/08/17 21:39 07/08/17 22:17 Sodium Chloride IV 07/08/17 22:08 100 mls/hr ONETIME ONE Administration Departure - Departure Time of Disposition: 23:00 Disposition: Refer to Observation Condition: Fair Clinical Impression: UTI, Urinary tract infectious disease, Generalized weakness - Discharge Information Referrals: Howard De Oliveira NP [Primary Care Provider] - Forms: ED Department Discharge - My Orders Last 24 Hours: My Active Orders 07/08/17 21:00 Cardiac Monitoring [RC] .As Directed 07/08/17 21:24 UA W/MICROSCOPIC [URIN] Stat 07/08/17 21:39 Sodium Chloride 0.9% [Saline Flush] 10 ml FLUSH ASDIRECTED PRN Saline Lock Insert [OM.PC] Routine 07/08/17 21:41 CULTURE URINE [RM] Stat - Assessment/Plan Last 24 Hours: My Active Orders 07/08/17 21:00 Cardiac Monitoring [RC] .As Directed 07/08/17 21:24 UA W/MICROSCOPIC [URIN] Stat 07/08/17 21:39 Sodium Chloride 0.9% [Saline Flush] 10 ml FLUSH ASDIRECTED PRN Saline Lock Insert [OM.PC] Routine 07/08/17 21:41 CULTURE URINE [RM] Stat
[2017-07-08] MEDS ORDERED: cefTRIAXone 1 GM in Sodium Chloride 0.9% 50 ML IV ONE (21:39)
[2017-07-08] MEDS ORDERED: Sodium Chloride 0.9% 10 ML Syringe FLUSH PRN (21:39)
[2017-07-08] MEDS ORDERED: Acetaminophen 325 MG Tab PO PRN (22:51)
[2017-07-08] MEDS ORDERED: Acetaminophen/HYDROcodone 325-5 MG Tab PO PRN ×2 (22:58)
[2017-07-08] MEDS ORDERED: Albuterol 8 GM Inhaler INH PRN (22:58)
[2017-07-08] MEDS ORDERED: QUEtiapine 25 MG Tab PO PRN (22:58)
[2017-07-08] MEDS ORDERED: cefTRIAXone 1 GM in Sodium Chloride 0.9% 50 ML IV SCH (23:00)
[2017-07-08] MEDS: Sodium Chloride 0.9% 1,000 ML IV SCH (23:28)
[2017-07-08] MEDS ORDERED: Nitroglycerin 0.4 MG Tab.SL SL PRN (23:30)
[2017-07-08] MEDS ORDERED: Triamcinolone Acetonide 0.1% Oint 15 GM Tube TOP SCH (23:45)
[2017-07-09] MEDS ORDERED: Melatonin 3 MG Tab PO ONE (00:01)
--- NOTE | 2017-07-09 05:27 | HP ---
CHIEF COMPLAINT: Weakness. HISTORY OF PRESENT ILLNESS: A 72-year-old with history of paroxysmal atrial fibrillation, CHF, chronic back pain due to spinal stenosis. Apparently, has been getting weaker and weaker, but over the last few days really could not get up. Her , who has early Parkinson's, having to lift her which was difficult. She fell a couple of weeks ago and landed on right side of her abdomen, which she has had some pain. 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 Came into the emergency room for further evaluation. Was noted to have packed white blood cells in her urine. Otherwise, lab work showed some renal insufficiency, which she has had trouble with in the past. I was asked to admit the patient for further evaluation and treatment. PAST MEDICAL HISTORY: 1. Chronic opioid use due to chronic back pain, spinal stenosis. 2. She had aortic valve replacement, coronary artery bypass, CHF with atrial fibrillation. 3. She had COPD, just quit smoking last fall. 4. Essential hypertension. 5. Cerebral aneurysm that was nonruptured. 6. Fibromyalgia. 7. GERD, gastritis. 8. Anxiety. 9. Left hip fracture complications. 10.Adrenal carcinoma. 11.Degenerative joint disease. CURRENT MEDICATIONS: 1. Albuterol inhaler p.r.n. 2. DuoNeb p.r.n. 3. Amiodarone 200 mg daily. 4. Bumetanide 2 mg b.i.d. 5. Vitamin D 2000 units daily. 6. Diltiazem extended release 120 mg daily. 7. Docusate 200 mg daily. 8. Hydrocodone-APAP 5/325 p.r.n. 9. 150 mg b.i.d. 10.Isosorbide 30 mg daily. 11.Magnesium 64 mg daily. 12.Melatonin 10 mg daily. 13.Metoprolol 100 mg b.i.d. 14.Mirtazapine 15 mg daily. 15.Multivitamin daily. 16.Nitroglycerin p.r.n. 17.Omeprazole 40 mg b.i.d. 18.Oxybutynin 10 mg daily. 19.Quetiapine 25 mg b.i.d. 20.Rosuvastatin 5 mg daily. 21.Triamcinolone b.i.d. ALLERGIES: BUPROPION, GLUTEN, GOLD, EFFEXOR, LATEX, LEXAPRO, SHRIMP FLAVOR, SHRIMP, SILVER, SULFA, ZOLOFT, ZYBAN. SOCIAL HISTORY: Quit smoking last fall. FAMILY HISTORY: Noncontributory. REVIEW OF SYSTEMS: Denies headaches, vision changes, upper respiratory symptoms. No chest pain. She does have chronic shortness of breath. No cough. No nausea or vomiting. She does have chronic constipation. No dysuria or hematuria. No swelling in her legs. She does have right foot pain. She does have a history of vasculitis and has a sore on her right foot she states. OBJECTIVE: VITAL SIGNS: Weight 62 kg. Pulse initially was 138, now is 79; blood pressure 110/63; respirations 16; O2 saturation 91% on room air. GENERAL: The patient seems to be alert, oriented, resting comfortably. HEENT: Pharynx, no teeth. Mucous membranes are slightly dry. NECK: Supple. No adenopathy, thyromegaly, JVD, carotid bruits. LUNGS: Clear. HEART: Irregularly irregular. ABDOMEN: Soft. She does have some right-sided abdominal discomfort. No mass can be palpated. No distention. EXTREMITIES: No significant edema. She does have discomfort of the right foot. ASSESSMENT: 1. Weakness. 2. Urinary tract infection. The patient already started on IV Rocephin. Cautiously give her IV fluids because of her history of congestive heart failure. 3. Right foot pain, which we will be able to get an x-ray of it tomorrow morning. Transfer care to the Hospitalist Service. Anticipate less than two midnight stays, so admit her under observation. 4. Congestive heart failure with history of coronary disease, bypass, aortic valve replacement, atrial fibrillation. 5. Essential hypertension. 6. Chronic opiate use with spinal stenosis. 7. Cerebral aneurysm, unruptured. 8. Depression with anxiety. 9. Fibromyalgia. 10.Gastroesophageal reflux disease with gastritis. 11.Adrenal carcinoma in the past. Juan De La Cruz MD /[id number]
[2017-07-09] MEDS: Sodium Chloride 0.9% 1,000 ML IV SCH (08:48)
[2017-07-09] MEDS ORDERED: Mirtazapine 15 MG Tab PO SCH (09:00)
[2017-07-09] MEDS ORDERED: Metoprolol Tartrate 50 MG Tab PO SCH (09:00)
[2017-07-09] MEDS ORDERED: Oxybutynin 5 MG Tab PO SCH (09:00)
[2017-07-09] MEDS ORDERED: Triamcinolone Acetonide 0.1% Oint 15 GM Tube TOP SCH (09:00)
[2017-07-09] MEDS ORDERED: Bumetanide 1 MG Tab PO SCH (09:00)
[2017-07-09] MEDS ORDERED: Non-Formulary Medication 1 Each (Melatonin [Melatonin] 10 MG) PO SCH (09:00)
[2017-07-09] MEDS ORDERED: MAGNESIUM CHLORIDE PO SCH (09:00)
[2017-07-09] MEDS: Albuterol/Ipratropium 3.0-0.5 MG/3 ML Neb Soln INH SCH ×4 (09:23→20:35)
[2017-07-09] MEDS: Pantoprazole 40 MG Tab.CR PO SCH ×2 (09:23→17:35)
[2017-07-09] MEDS: Diltiazem 120 MG Cap.CD PO SCH (09:24)
[2017-07-09] MEDS: IRON POLYSACCHARIDES COMPLEX 150 MG PO SCH ×2 (09:24→20:34)
[2017-07-09] MEDS: Docusate Sodium 100 MG Cap PO SCH (09:24)
[2017-07-09] MEDS: Amiodarone 200 MG Tab PO SCH (09:24)
[2017-07-09] MEDS: Isosorbide Mononitrate 30 MG Tab.ER PO SCH (09:24)
[2017-07-09] MEDS: Cholecalciferol (Vitamin D3) 1,000 Unit Tab PO SCH (09:25)
[2017-07-09] MEDS: Multivitamins with Iron Tab.Chew PO SCH (10:10)
--- NOTE | 2017-07-09 10:21 | CR ---
No definitive fracture. Bones of the midfoot overlap on both AP and oblique view limiting details. De generative changes at the midfoot. Scattered degenerative changes at IP joints.
[2017-07-09] MEDS: Magnesium Oxide 400 MG Tab PO SCH (11:54)
--- NOTE | 2017-07-09 11:56 | PCM.PN ---
- General Info Date of Service: 07/09/17 Functional Status: Reports: Tolerating Diet - Review of Systems General: Denies: Fever Pulmonary: Denies: Shortness of Breath Gastrointestinal: Denies: Abdominal Pain Musculoskeletal: Reports: Foot Pain Systems Review Comment:: No acute events since admission. She is complaining of right foot pain today and there is obvious swelling and bruising. X-ray did not show a fracture. She has not had fevers. Urine culture is pending at this time. Intermittent tachycardia with her atrial fibrillation but otherwise stable. - Patient Data Vitals - Most Recent: Last Vital Signs Temp 36.6 C 07/09/17 10:50 Pulse 100 07/09/17 10:50 Resp 18 07/09/17 10:50 BP 147/78 H 07/09/17 10:50 Pulse Ox 96 07/09/17 10:50 Weight - Most Recent: 60.781 kg I&O - Last 24 Hours: Intake & Output 07/08/17 07/09/17 07/09/17 22:59 06:59 14:59 Intake Total 1128 600 Output Total 200 200 Balance 928 400 Lab Results Last 24 Hours: Laboratory Results - last 24 hr 07/08/17 07/08/17 07/08/17 Range/Units 21:10 21:10 21:24 WBC 8.7 (4.5-11.0) K/uL RBC 3.55 (3.30-5.50) M/uL Hgb 8.9 L (12.0-15.0) g/dL Hct 31.3 L (36.0-48.0) % MCV 88 (80-98) fL MCH 25 L (27-31) pg MCHC 28 L (32-36) % Plt Count 275 (150-400) K/uL Sodium 144 (140-148) mmol/L Potassium 3.9 (3.6-5.2) mmol/L Chloride 104 (100-108) mmol/L Carbon Dioxide 30 (21-32) mmol/L Anion Gap 9.7 (5.0-14.0) mmol/L BUN 26 H D (7-18) mg/dL Creatinine 1.6 H (0.6-1.0) mg/dL Est Cr Clr Drug Dosing 22.49 mL/min Estimated GFR (MDRD) 32 L (>60) Glucose 115 H (74-106) mg/dL Calcium 8.5 (8.5-10.1) mg/dL Troponin I < 0.017 (0.000-0.056) ng/mL Urine Color Yellow Urine Appearance Cloudy Urine pH 6.0 (4.5-8.0) Ur Specific [place] 1.010 (1.008-1.030) Urine Protein 100 H (NEGATIVE) mg/dL Urine Glucose (UA) Normal (NEGATIVE) mg/dL Urine Ketones Negative (NEGATIVE) mg/dL Urine Occult Blood Large (NEGATIVE) Urine Nitrite Positive H (NEGATIVE) Urine Bilirubin Negative (NEGATIVE) Urine Urobilinogen Normal (NORMAL) mg/dL Ur Leukocyte Esterase Large (NEGATIVE) Urine RBC 20-30 H (0-5) Urine WBC Packed H (0-5) Ur Epithelial Cells Rare Amorphous Sediment Not seen Urine Bacteria Many Urine Mucus Not seen 07/09/17 07/09/17 Range/Units 05:34 05:34 WBC 8.8 (4.5-11.0) K/uL RBC 3.43 (3.30-5.50) M/uL Hgb 8.5 L (12.0-15.0) g/dL Hct 30.4 L (36.0-48.0) % MCV 89 (80-98) fL MCH 25 L (27-31) pg MCHC 28 L (32-36) % Plt Count 281 (150-400) K/uL Sodium 145 (140-148) mmol/L Potassium 3.6 (3.6-5.2) mmol/L Chloride 106 (100-108) mmol/L Carbon Dioxide 30 (21-32) mmol/L Anion Gap 8.8 (5.0-14.0) mmol/L BUN 23 H (7-18) mg/dL Creatinine 1.6 H (0.6-1.0) mg/dL Est Cr Clr Drug Dosing TNP mL/min Estimated GFR (MDRD) 32 L (>60) Glucose 111 H (74-106) mg/dL Calcium 8.0 L (8.5-10.1) mg/dL Troponin I (0.000-0.056) ng/mL Urine Color Urine Appearance Urine pH (4.5-8.0) Ur Specific [place] (1.008-1.030) Urine Protein (NEGATIVE) mg/dL Urine Glucose (UA) (NEGATIVE) mg/dL Urine Ketones (NEGATIVE) mg/dL Urine Occult Blood (NEGATIVE) Urine Nitrite (NEGATIVE) Urine Bilirubin (NEGATIVE) Urine Urobilinogen (NORMAL) mg/dL Ur Leukocyte Esterase (NEGATIVE) Urine RBC (0-5) Urine WBC (0-5) Ur Epithelial Cells Amorphous Sediment Urine Bacteria Urine Mucus Med Orders - Current: Current Medications Acetaminophen (Tylenol) 650 mg PO Q4H PRN PRN Reason: Pain (Mild 1-3)/fever Hydrocodone Bitart/Acetaminophen ([place] 325-5 Mg) 1 tab PO DAILY PRN PRN Reason: Pain Albuterol (Ventolin Hfa) 0 gm INH Q6HR PRN PRN Reason: Shortness of Breath Albuterol/Ipratropium (Duoneb 3.0-0.5 Mg/3 Ml) 3 ml INH QIDRT [facility] Last Admin: 07/09/17 10:35 Dose: 3 ml Amiodarone HCl (Cordarone) 200 mg PO DAILY [facility] Last Admin: 07/09/17 09:24 Dose: 200 mg Bumetanide (Bumex) 2 mg PO BID [facility] Last Admin: 07/09/17 09:23 Dose: 2 mg Cholecalciferol (Vitamin D3) 2,000 units PO DAILY [facility] Last Admin: 07/09/17 09:25 Dose: 2,000 units Diltiazem HCl (Cardizem Cd) 120 mg PO DAILY [facility] Last Admin: 07/09/17 09:24 Dose: 120 mg Docusate Sodium (Colace) 200 mg PO DAILY [facility] Last Admin: 07/09/17 09:24 Dose: 200 mg Ceftriaxone Sodium 1 gm/ (Sodium Chloride) 50 mls @ 100 mls/hr IV Q24H [facility] Isosorbide Mononitrate (Imdur) 30 mg PO DAILY [facility] Last Admin: 07/09/17 09:24 Dose: 30 mg Magnesium Oxide (Magnesium Oxide) 200 mg PO DAILY [facility] Last Admin: 07/09/17 11:54 Dose: 200 mg Melatonin (Melatonin) 9 mg PO BEDTIME [facility] Metoprolol Tartrate (Lopressor) 100 mg PO BID [facility] Last Admin: 07/09/17 09:25 Dose: 100 mg Mirtazapine (Remeron) 15 mg PO BEDTIME [facility] Multivitamins/Iron (Child Chew Iron) 1 tab PO DAILY [facility] Last Admin: 07/09/17 10:10 Dose: 1 tab Nitroglycerin (Nitrostat) 0.4 mg SL ASDIRECTED PRN PRN Reason: Chest Pain Oxybutynin Chloride (Oxybutynin) 5 mg PO BID [facility] Last Admin: 07/09/17 09:25 Dose: 5 mg Pantoprazole Sodium (Protonix) 40 mg PO BIDAC [facility] Last Admin: 07/09/17 09:23 Dose: 40 mg Polysaccharide Iron Complex (Ferrex 150) 150 mg PO BID [facility] Last Admin: 07/09/17 09:24 Dose: 150 mg Quetiapine Fumarate (Seroquel) 25 mg PO BID PRN PRN Reason: Agitation Rosuvastatin Calcium (Crestor) 5 mg PO BEDTIME [facility] Sodium Chloride (Saline Flush) 10 ml FLUSH ASDIRECTED PRN PRN Reason: Keep Vein Open Last Admin: 07/08/17 22:17 Dose: 10 ml Discontinued Medications Hydrocodone Bitart/Acetaminophen ([place] 325-5 Mg) 1 tab PO DAILY PRN PRN Reason: Pain Ceftriaxone Sodium 1 gm/ (Sodium Chloride) 50 mls @ 100 mls/hr IV ONETIME ONE Stop: 07/08/17 22:08 Last Admin: 07/08/17 22:17 Dose: 100 mls/hr Sodium Chloride (Normal Saline) 1,000 mls @ 100 mls/hr IV ASDIRECTED [facility] Last Admin: 07/09/17 08:48 Dose: 100 mls/hr Ceftriaxone Sodium 1 gm/ (Sodium Chloride) 50 mls @ 100 mls/hr IV Q24H [facility] Last Admin: 07/09/17 02:19 Dose: Not Given Melatonin (Melatonin) 9 mg PO BEDTIME ONE Stop: 07/09/17 00:02 Last Admin: 07/09/17 00:41 Dose: 9 mg Triamcinolone Acetonide (Triamcinolone Acetonide 0.1% Oint) 0 gm TOP BID [facility] Last Admin: 07/08/17 23:51 Dose: Not Given Triamcinolone Acetonide (Triamcinolone Acetonide 0.1% Oint) 0 gm TOP BID [facility] Last Admin: 07/09/17 09:25 Dose: Not Given - Exam Quality Assessment: No: Supplemental Oxygen General: Alert, Cooperative, No Acute Distress Neck: Supple Lungs: Clear to Auscultation, Normal Respiratory Effort Cardiovascular: Irregular Rhythm, Tachycardia GI/Abdominal Exam: No Distention Extremities: Pedal Edema (doral aspect of right foot with bruising ) Skin: Warm, Dry Psy/Mental Status: Alert, Normal Affect - Problem List & Annotations (1) UTI, Urinary tract infectious disease SNOMED Code(s): 19352593 Code(s): N39.0 - URINARY TRACT INFECTION, SITE NOT SPECIFIED Status: Acute Current Visit: Yes (2) Generalized weakness SNOMED Code(s): 08150788 Code(s): R53.1 - WEAKNESS Status: Acute Current Visit: Yes (3) Atrial fibrillation with RVR SNOMED Code(s): 451318388271320 Code(s): I48.91 - UNSPECIFIED ATRIAL FIBRILLATION Status: Acute Current Visit: No (4) Diastolic congestive heart failure SNOMED Code(s): 969926850, 950978905 Code(s): I50.30 - UNSPECIFIED DIASTOLIC (CONGESTIVE) HEART FAILURE Status: Chronic Current Visit: No (5) Stage III chronic kidney disease SNOMED Code(s): 508140770 Code(s): N18.3 - CHRONIC KIDNEY DISEASE, STAGE 3 (MODERATE) Status: Chronic Current Visit: No - Problem List Review Problem List Initiated/Reviewed/Updated: Yes - My Orders Last 24 Hours: My Active Orders 07/09/17 11:52 Cooling Warming Measures [RC] ASDIRECTED Ice Bag [Ice Therapy] [OM.PC] Routine 07/09/17 11:53 Convert IV to Saline Lock [OM.PC] Routine 07/10/17 05:00 BASIC METABOLIC PANEL,BMP [CHEM] Timed CBC W/O DIFF,HEMOGRAM [HEME] Timed (1) - Plan Plan:: ASSESSMENT AND PLAN - Acute cystitis with generalized weakness - no evidence for sepsis at this time. Urine culture pending. Patient is stable. -Continue ceftriaxone -Follow-up cultures Left foot pain - obvious bruising and swelling but no evidence for fracture. Patient does not recall any injury. -Ice -Pain control Chronic atrial fibrillation - rate control borderline suboptimal with intermittent tachycardia. Patient reports this is normal long-standing for her. -Continue home medications Diastolic congestive heart failure - well compensated at this time. -Continue home medications Stage III chronic kidney disease - kidney function stable at this time. Maintenance issues - - DVT prophylaxis - mechanical - GI prophylaxis - not indicated - Nutrition - low sodium Admission justification - patient will remain observation status, she may be ready for discharge this evening or tomorrow depending on pain control with her foot. Disposition - anticipate discharge to home with family after the hospital stay Sonu Corral M.D.
[2017-07-09] MEDS: BUMETANIDE 2 MG PO SCH (20:31)
[2017-07-09] MEDS: METOPROLOL TARTRATE 100 MG PO SCH (20:38)
[2017-07-09] MEDS ORDERED: ROSUVASTATIN 5 MG PO SCH (21:00)
[2017-07-09] MEDS ORDERED: MELATONIN 10 MG PO SCH (21:00)
[2017-07-09] MEDS ORDERED: Mirtazapine 15 MG Tab*PT OWN MED PO SCH (21:00)
[2017-07-09] MEDS ORDERED: OXYBUTYNIN 10 MG PO SCH (21:00)
[2017-07-09] MEDS ORDERED: cefTRIAXone 1 GM in Sodium Chloride 0.9% 50 ML IV SCH (21:00)
[2017-07-10] MEDS: Albuterol/Ipratropium 3.0-0.5 MG/3 ML Neb Soln INH SCH ×2 (07:20→14:17)
[2017-07-10] MEDS: Diltiazem 120 MG Cap.CD PO SCH (08:39)
[2017-07-10] MEDS: Pantoprazole 40 MG Tab.CR PO SCH (08:39)
[2017-07-10] MEDS: Docusate Sodium 100 MG Cap PO SCH (08:40)
[2017-07-10] MEDS: Multivitamins with Iron Tab.Chew PO SCH (08:40)
[2017-07-10] MEDS: Amiodarone 200 MG Tab PO SCH (08:41)
[2017-07-10] MEDS: IRON POLYSACCHARIDES COMPLEX 150 MG PO SCH (08:41)
[2017-07-10] MEDS: Magnesium Oxide 400 MG Tab PO SCH (08:41)
[2017-07-10] MEDS: Isosorbide Mononitrate 30 MG Tab.ER PO SCH (08:41)
[2017-07-10] MEDS: METOPROLOL TARTRATE 100 MG PO SCH (08:42)
[2017-07-10] MEDS: Cholecalciferol (Vitamin D3) 1,000 Unit Tab PO SCH (08:42)
[2017-07-10] MEDS: BUMETANIDE 2 MG PO SCH (08:42)
--- NOTE | 2017-07-10 10:04 | PCM.DCSUM1 ---
Discharge Summary - Hospital Course Brief History: 72-year-old female with chronic atrial fibrillation, stage III chronic kidney disease who presented with weakness and right foot pain. She was admitted for management of a urinary tract infection. - Discharge Data Discharge Date: 07/10/17 Discharge Disposition: Home, [facility] Condition: Fair - Discharge Diagnosis/Problem(s) (1) UTI, Urinary tract infectious disease SNOMED Code(s): 98862722 ICD Code: N39.0 - URINARY TRACT INFECTION, SITE NOT SPECIFIED Status: Acute (2) Generalized weakness SNOMED Code(s): 07650831 ICD Code: R53.1 - WEAKNESS Status: Acute (3) Atrial fibrillation with RVR SNOMED Code(s): 005852795271541 ICD Code: I48.91 - UNSPECIFIED ATRIAL FIBRILLATION Status: Acute (4) Diastolic congestive heart failure SNOMED Code(s): 683712096, 526684306 ICD Code: I50.30 - UNSPECIFIED DIASTOLIC (CONGESTIVE) HEART FAILURE Status : Chronic (5) Stage III chronic kidney disease SNOMED Code(s): 394250475 ICD Code: N18.3 - CHRONIC KIDNEY DISEASE, STAGE 3 (MODERATE) Status: Chronic - Patient Summary/Data Labs Pending at D/C: final results of the urine culture which is growing a gram-negative freddy at the time of discharge Hospital Course: Akiko presented to the emergency room with progressive weakness and right foot pain without obvious injury to her foot. Workup in the emergency room was suggestive of a urinary tract infection. She was admitted to the hospital for further management. There is no evidence for sepsis at the time of admission. The morning after admission an x-ray of her foot was obtained and did not show evidence for fracture. There was some evidence for swelling and bruising but no obvious cause of her foot injury was determined. Her foot pain did improve with ice packs and some gentle pain control during the hospital stay. She is able to bear weight on her foot now and ambulate to the bathroom and back without significant limitation. Vital signs have been stable during the hospital stay other than some intermittent jumps in her atrial fibrillation rate. Her urine culture is growing a gram-negative freddy but final identification is pending. With the improvement in her foot pain and stability of vital signs as well as improvement in her strength I think she is safe for outpatient management. She will go home with a prescription for hydrocodone to help with the pain and a prescription for cefdinir. She'll be discharged home with her family. She has follow-up scheduled in 2 days. - Patient Instructions Diet: Heart Healthy Diet Activity: As Tolerated Showering/Bathing: May Shower Notify Provider of: Fever, Increased Pain, Nausea and/or Vomiting Other/Special Instructions: 1. You were in the hospital for management of a urinary tract infection as well as right foot pain. The infection is improving with antibiotics and I do recommend four additional doses of antibiotics with cefdinir 300 mg to be taken twice daily. Your next dose is due tonight. Your foot x-ray did not show any evidence for fracture. I would recommend using ice every 4 hours as needed for swelling and acetaminophen/hydrocodone every 4 hours as needed for pain. 2. Resume previous home care orders. 3. Follow up with Howard De Oliveira as scheduled on Wednesday. 4. Seek medical attention if you develop fever greater than 101, have profound weakness, persistent vomiting or severe diarrhea. - Discharge Plan Prescriptions/Med Rec: Cefdinir 300 mg PO BID #4 capsule Hydrocodone/Acetaminophen [Hydrocodon-Acetaminophen 5-325] 1 tab PO Q4H PRN #10 tablet PRN Reason: Pain Home Medications: Home Meds Albuterol [Proventil HFA] 1 puff INH Q6HR PRN 02/08/17 [History] Albuterol/Ipratropium [DuoNeb 3.0-0.5 MG/3 ML] 1 dose INH Q6HR 02/08/17 [History ] Cholecalciferol (Vitamin D3) [Vitamin D3] 2,000 units PO DAILY 02/08/17 [History ] Multivitamin [Multi-Vitamin Daily] 1 tab PO DAILY 02/08/17 [History] Nebulizer [[place] Disposable Nebulizer] 1 ea INH Q4H PRN 02/08/17 [History] Nitroglycerin [Nitrostat] 0.4 mg PO ASDIRECTED 02/08/17 [History] Oxybutynin [Oxybutynin ER] 10 mg PO DAILY 02/08/17 [History] Bumetanide 2 mg PO BID 04/29/17 [History] Iron Polysaccharides Complex [Ferrex 150] 150 mg PO BID 04/29/17 [History] Rosuvastatin Calcium 5 mg PO BEDTIME 04/29/17 [History] Metoprolol Tartrate [Lopressor] 100 mg PO BID 04/30/17 [History] Diltiazem HCl [Diltiazem 24Hr Cd] 120 mg PO DAILY #30 cap.er.24h 05/04/17 [Rx] Isosorbide Mononitrate [Imdur] 30 mg PO DAILY #30 tab.er 05/04/17 [Rx] Melatonin 10 mg PO DAILY #30 tablet 05/04/17 [Rx] Amiodarone [Cordarone] 200 mg PO DAILY 05/25/17 [History] Docusate Sodium [Colace] 200 mg PO DAILY 05/25/17 [History] Magnesium Chloride [Mag-64] 1 tab PO DAILY 07/08/17 [History] Mirtazapine 15 mg PO DAILY 07/08/17 [History] Omeprazole 40 mg PO BID 07/08/17 [History] QUEtiapine Fumarate [Quetiapine Fumarate] 25 mg PO BID PRN 07/08/17 [History] Triamcinolone Acetonide [Triamcinolone Acetonide 0.1% Oint] 15 gm TOP BID [History] Cefdinir 300 mg PO BID #4 capsule 07/10/17 [Rx] Hydrocodone/Acetaminophen [Hydrocodon-Acetaminophen 5-325] 1 tab PO Q4H PRN #10 tablet 07/10/17 [Rx] Patient Handouts: Cefdinir capsules, Urinary Tract Infection, Adult, Easy-to- Read Referrals: Howard De Oliveira, [employer] [Primary Care Provider] - (f/u as scheduled on Wednesday ) - Discharge Summary/Plan Comment DC Time >30 min.: No (25) - Patient Data Vitals - Most Recent: Last Vital Signs Temp 36.7 C 07/10/17 07:42 Pulse 90 07/10/17 08:39 Resp 18 07/10/17 07:42 BP 122/66 07/10/17 08:41 Pulse Ox 98 07/10/17 07:42 Weight - Most Recent: 60.781 kg I&O - Last 24 hours: Intake & Output 07/09/17 07/10/17 07/10/17 22:59 06:59 14:59 Intake Total 290 240 360 Output Total 300 500 200 Balance -10 -260 160 Lab Results - Last 24 hrs: Laboratory Results - last 24 hr 07/10/17 07/10/17 Range/Units 05:30 05:30 WBC 8.5 (4.5-11.0) K/uL RBC 3.27 L (3.30-5.50) M/uL Hgb 8.1 L (12.0-15.0) g/dL Hct 28.9 L (36.0-48.0) % MCV 88 (80-98) fL MCH 25 L (27-31) pg MCHC 28 L (32-36) % Plt Count 238 (150-400) K/uL Sodium 145 (140-148) mmol/L Potassium 4.1 (3.6-5.2) mmol/L Chloride 107 (100-108) mmol/L Carbon Dioxide 29 (21-32) mmol/L Anion Gap 9.1 (5.0-14.0) mmol/L BUN 22 H (7-18) mg/dL Creatinine 1.6 H (0.6-1.0) mg/dL Est Cr Clr Drug Dosing 22.49 mL/min Estimated GFR (MDRD) 32 L (>60) Glucose 96 (74-106) mg/dL Calcium 8.2 L (8.5-10.1) mg/dL BRIANNA Results - Last 24 hrs: Microbiology 07/08/17 21:41 Urine Culture - Preliminary Urine, Catheterized Med Orders - Current: Current Medications Acetaminophen (Tylenol) 650 mg PO Q4H PRN PRN Reason: Pain (Mild 1-3)/fever Last Admin: 07/09/17 14:30 Dose: 650 mg Hydrocodone Bitart/Acetaminophen ([place] 325-5 Mg) 1 tab PO DAILY PRN PRN Reason: Pain Last Admin: 07/10/17 01:47 Dose: 1 tab Albuterol (Ventolin Hfa) 0 gm INH Q6HR PRN PRN Reason: Shortness of Breath Albuterol/Ipratropium (Duoneb 3.0-0.5 Mg/3 Ml) 3 ml INH QIDRT [facility] Last Admin: 07/10/17 07:20 Dose: 3 ml Amiodarone HCl (Cordarone) 200 mg PO DAILY [facility] Last Admin: 07/10/17 08:41 Dose: 200 mg Cholecalciferol (Vitamin D3) 2,000 units PO DAILY [facility] Last Admin: 07/10/17 08:42 Dose: 2,000 units Diltiazem HCl (Cardizem Cd) 120 mg PO DAILY [facility] Last Admin: 07/10/17 08:39 Dose: 120 mg Docusate Sodium (Colace) 200 mg PO DAILY [facility] Last Admin: 07/10/17 08:40 Dose: 200 mg Ceftriaxone Sodium 1 gm/ (Sodium Chloride) 50 mls @ 100 mls/hr IV Q24H [facility] Last Admin: 07/09/17 20:45 Dose: 100 mls/hr Isosorbide Mononitrate (Imdur) 30 mg PO DAILY [facility] Last Admin: 07/10/17 08:41 Dose: 30 mg Magnesium Oxide (Magnesium Oxide) 200 mg PO DAILY [facility] Last Admin: 07/10/17 08:41 Dose: 200 mg Mirtazapine (Remeron) 15 mg PO BEDTIME [facility] Last Admin: 07/09/17 20:35 Dose: 15 mg Multivitamins/Iron (Child Chew Iron) 1 tab PO DAILY [facility] Last Admin: 07/10/17 08:40 Dose: 1 tab Nitroglycerin (Nitrostat) 0.4 mg SL ASDIRECTED PRN PRN Reason: Chest Pain Pantoprazole Sodium (Protonix) 40 mg PO BIDAC [facility] Last Admin: 07/10/17 08:39 Dose: 40 mg Rosuvastatin 5 Mg (Tab*Pt Own Med*) 0 each PO BEDTIME [facility] Last Admin: 07/09/17 20:33 Dose: 1 each Melatonin 10 Mg Tab* (Pt Own Med*) 0 each PO BEDTIME [facility] Last Admin: 07/09/17 20:32 Dose: 1 each Metoprolol Tartrate 100 Mg Tab*Pt Own Med* 0 each PO BID [facility] Last Admin: 07/10/17 08:42 Dose: 1 each Bumetanide 2 Mg Tab* (Pt Own Med*) 0 each PO BID [facility] Last Admin: 07/10/17 08:42 Dose: 1 each Oxybutynin 10 Mg Er (Tab*Pt Own Med*) 0 each PO BEDTIME [facility] Last Admin: 07/09/17 20:33 Dose: 1 each Polysaccharide Iron Complex (Ferrex 150) 150 mg PO BID [facility] Last Admin: 07/10/17 08:41 Dose: 150 mg Quetiapine Fumarate (Seroquel) 25 mg PO BID PRN PRN Reason: Agitation Sodium Chloride (Saline Flush) 10 ml FLUSH ASDIRECTED PRN PRN Reason: Keep Vein Open Last Admin: 07/08/17 22:17 Dose: 10 ml Discontinued Medications Hydrocodone Bitart/Acetaminophen ([place] 325-5 Mg) 1 tab PO DAILY PRN PRN Reason: Pain Bumetanide (Bumex) 2 mg PO BID [facility] Last Admin: 07/09/17 09:23 Dose: 2 mg Ceftriaxone Sodium 1 gm/ (Sodium Chloride) 50 mls @ 100 mls/hr IV ONETIME ONE Stop: 07/08/17 22:08 Last Admin: 07/08/17 22:17 Dose: 100 mls/hr Sodium Chloride (Normal Saline) 1,000 mls @ 100 mls/hr IV ASDIRECTED [facility] Last Admin: 07/09/17 08:48 Dose: 100 mls/hr Ceftriaxone Sodium 1 gm/ (Sodium Chloride) 50 mls @ 100 mls/hr IV Q24H [facility] Last Admin: 07/09/17 02:19 Dose: Not Given Melatonin (Melatonin) 9 mg PO BEDTIME ONE Stop: 07/09/17 00:02 Last Admin: 07/09/17 00:41 Dose: 9 mg Metoprolol Tartrate (Lopressor) 100 mg PO BID [facility] Last Admin: 07/09/17 09:25 Dose: 100 mg Oxybutynin Chloride (Oxybutynin) 5 mg PO BID [facility] Last Admin: 07/09/17 09:25 Dose: 5 mg Triamcinolone Acetonide (Triamcinolone Acetonide 0.1% Oint) 0 gm TOP BID [facility] Last Admin: 07/08/17 23:51 Dose: Not Given Triamcinolone Acetonide (Triamcinolone Acetonide 0.1% Oint) 0 gm TOP BID [facility] Last Admin: 07/09/17 09:25 Dose: Not Given - Exam Quality Assessment: Denies: Supplemental Oxygen General: Reports: Alert, Oriented, Cooperative, No Acute Distress Neck: Reports: Supple Lungs: Reports: Normal Respiratory Effort Cardiovascular: Reports: Regular Rate, Irregular Rhythm GI/Abdominal Exam: No Distention Extremities: Pedal Edema (mild right foot ) Psy/Mental Status: Reports: Alert, Normal Affect
== END 2017-07-10 14:46 | disposition home health service (06) ==
LOC: JP.ED 18:56 → JP.MS 22:52
PROVIDERS: ADMIT Family Medicine; ATTEND Internal Medicine
DX: N39.0 Urinary tract infection, site not specified (principal); R53.1 Weakness; I48.91 Unspecified atrial fibrillation; I50.32 Chronic diastolic (congestive) heart failure; I13.0 Hypertensive heart and chronic kidney disease with heart failure and stage 1 through stage 4 chronic kidney disease, or unspecified chronic kidney disease; N18.3 Chronic kidney disease, stage 3 (moderate); G89.29 Other chronic pain; M54.9 Dorsalgia, unspecified; J44.9 Chronic obstructive pulmonary disease, unspecified; K21.9 Gastro-esophageal reflux disease without esophagitis; F41.8 Other specified anxiety disorders; Z95.2 Presence of prosthetic heart valve; Z91.013 Allergy to seafood; Z91.040 Latex allergy status; Z88.2 Allergy status to sulfonamides; Z79.899 Other long term (current) drug therapy; Z88.8 Allergy status to other drugs, medicaments and biological substances; Z91.09 Other allergy status, other than to drugs and biological substances; Z87.891 Personal history of nicotine dependence; Z79.891 Long term (current) use of opiate analgesic
CPT/HCPCS: 36415; 73620; 80048; 81001; 84484; 85027; 87086; 87088; 87186; 94640; 96365; 99285; A9270; J0696; J7040; J7050; J7620; 96361; 96366; G0378

== ENCOUNTER 2017-07-30 09:43 | Emergency (ER) | payer MEDICARE, BC ==
[2017-07-30] MEDS ORDERED: Sodium Chloride 0.9% 10 ML Syringe FLUSH PRN ×2 (10:46→12:19)
--- NOTE | 2017-07-30 10:50 | EDM.PDOC ---
ED HPI GENERAL MEDICAL PROBLEM - General Chief Complaint: General Stated Complaint: NOT FEELING THE BEST SOB Time Seen by Provider: 07/30/17 10:35 Source of Information: Reports: Patient, Old Records, RN History Limitations: Reports: No Limitations - History of Present Illness INITIAL COMMENTS - FREE TEXT/NARRATIVE: 72 yo female developed SOB this morning while still in bed. Tried to get out of bed to go to breakfast and had near syncope a couple times. Is feeling better now. Has chronic anemia. States no pain, no fever, and says she quit smoking last Nov. Onset: Today Onset Date: 07/30/17 Onset Time: 08:00 Duration: Hour(s):, Improving Location: Reports: Generalized Quality: Reports: Other (no pain) Severity: Moderate Improves with: Reports: Rest (and ? time) Worsens with: Reports: Other (unknown) Context: Reports: Other (COPD, CHF, anemia history) Associated Symptoms: Reports: Shortness of Breath, Syncope. 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 (see below) (none) - Related Data Allergies Allergy/AdvReac Type Severity Reaction Status Date / Time bupropion Allergy Bleeding Verified 07/30/17 10:22 gluten Allergy Other Verified 07/30/17 10:22 gold Au 198 Allergy Hives Verified 07/30/17 10:22 Iodinated Contrast- Oral and Allergy Itching Verified 07/30/17 10:22 IV Dye Latex, Natural Rubber Allergy Rash Verified 07/30/17 10:33 silver Allergy Hives Verified 07/30/17 10:22 escitalopram AdvReac Drowsiness Verified 07/30/17 10:22 sertraline AdvReac Hallucinati Verified 07/30/17 10:35 ons shellfish derived AdvReac Vomiting Verified 07/30/17 10:22 shrimp AdvReac Vomiting Verified 07/30/17 10:22 Sulfa (Sulfonamide AdvReac Nausea and Verified 07/30/17 10:22 Antibiotics) Vomiting venlafaxine AdvReac Nausea and Verified 07/30/17 10:22 Vomiting gluten Allergy Other Uncoded 07/30/17 10:35 metal catheter connector Allergy Other Uncoded 07/08/17 20:26 Home Meds: Home Meds Albuterol [Proventil HFA] 1 puff INH Q6HR PRN 02/08/17 [History] Albuterol/Ipratropium [DuoNeb 3.0-0.5 MG/3 ML] 1 dose INH Q6HR 02/08/17 [History ] Cholecalciferol (Vitamin D3) [Vitamin D3] 2,000 units PO DAILY 02/08/17 [History ] Multivitamin [Multi-Vitamin Daily] 1 tab PO DAILY 02/08/17 [History] Nebulizer [Devilbiss Disposable Nebulizer] 1 ea INH Q4H PRN 02/08/17 [History] Nitroglycerin [Nitrostat] 0.4 mg PO ASDIRECTED 02/08/17 [History] Oxybutynin [Oxybutynin ER] 10 mg PO DAILY 02/08/17 [History] Bumetanide 2 mg PO BID 04/29/17 [History] Iron Polysaccharides Complex [Ferrex 150] 150 mg PO BID 04/29/17 [History] Rosuvastatin Calcium 5 mg PO BEDTIME 04/29/17 [History] Metoprolol Tartrate [Lopressor] 100 mg PO BID 04/30/17 [History] Diltiazem HCl [Diltiazem 24Hr Cd] 120 mg PO DAILY #30 cap.er.24h 05/04/17 [Rx] Isosorbide Mononitrate [Imdur] 30 mg PO DAILY #30 tab.er 05/04/17 [Rx] Melatonin 10 mg PO DAILY #30 tablet 05/04/17 [Rx] Amiodarone [Cordarone] 200 mg PO DAILY 05/25/17 [History] Docusate Sodium [Colace] 200 mg PO DAILY 05/25/17 [History] Magnesium Chloride [Mag-64] 1 tab PO DAILY 07/08/17 [History] Mirtazapine 15 mg PO DAILY 07/08/17 [History] Omeprazole 40 mg PO BID 07/08/17 [History] QUEtiapine Fumarate [Quetiapine Fumarate] 25 mg PO BID PRN 07/08/17 [History] Triamcinolone Acetonide [Triamcinolone Acetonide 0.1% Oint] 15 gm TOP BID [History] Cefdinir 300 mg PO BID #4 capsule 07/10/17 [Rx] Hydrocodone/Acetaminophen [Hydrocodon-Acetaminophen 5-325] 1 tab PO Q4H PRN #10 tablet 07/10/17 [Rx] Past Medical History HEENT History: Reports: Impaired Vision Cardiovascular History: Reports: Aneurysm, Arrhythmia, Blood Clots/VTE/DVT, CAD , Heart Murmur, High Cholesterol, Hypertension, [place] Other Cardiovascular History: THREE VESSEL BYPASS IN 2012. two brain aneurysms dx approx 1999. States they have not changed at all. Last followup was 2011 Respiratory History: Reports: COPD, SOB, Other (See Below) Other Respiratory History: "lungs drained frequently Gastrointestinal History: Reports: Chronic Constipation, GI Bleed Genitourinary History: Reports: Acute Renal Failure, Chronic Renal Insuffiency, Dialysis, Urinary Incontinence, Other (See Below) Other Genitourinary History: Has not been on dialysis since April 2017. 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 History: Reports: Musculoskeletal History: Reports: Fracture Other Musculoskeletal History: HIP FRACTURE Neurological History: Reports: CVA, Other (See Below) Other Neuro History: spinal stenosis Psychiatric History: Reports: Alzheimers Disease, Anxiety, Depression, Suicide Attempt, Other (See Below) Other Psychiatric History: currently seeing [facility] psych Dr Harrell for sundowning and neuro psychological testing for dementia Hematologic History: Reports: Anemia, B12 Deficiency, Blood Transfusion(s), Iron Deficiency - Infectious Disease History Infectious Disease History: Reports: Chicken Pox, Influenza, Measles - Past Surgical History HEENT Surgical History: Reports: Adenoidectomy, Cataract Surgery, Eye Surgery, Tonsillectomy Other HEENT Surgeries/Procedures: RIGHT EYE Cardiovascular Surgical History: Reports: Coronary Artery Bypass, Valve Replacement GI Surgical History: Reports: Appendectomy, Colonoscopy, EGD Other GI Surgeries/Procedures: MEKELS DIVERTICULI, ESOPHAGEAL VARACESE Female Surgical History: Reports: Oophorectomy, Tubal Ligation, Ureteral Stent Other Female Surgeries/Procedures: bladder sling, but mesh has since been removed Musculoskeletal Surgical History: Reports: Other (See Below) Other Musculoskeletal Surgeries/Procedures:: hip surgery Social & Family History - Family History Family Medical History: Noncontributory Cardiac: Reports: CAD - Tobacco Use Smoking Status *Q: Never Smoker Years of Tobacco use: 50 Packs/Tins Daily: 1 Used Tobacco, but Quit: Yes Month/Year Tobacco Last Used: 12/24/2016 Second Hand Smoke Exposure: Yes - Caffeine Use Caffeine Use: Reports: Coffee Other Caffeine Use: 1 cup daily - Recreational Drug Use Recreational Drug Use: No ED ROS GENERAL - Review of Systems Review Of Systems: See Below Constitutional: Reports: Weakness HEENT: Reports: No Symptoms Respiratory: Reports: Shortness of Breath. Denies: Wheezing, Pleuritic Chest Pain, Cough, Sputum, Hemoptysis Cardiovascular: Reports: Lightheadedness, Syncope Endocrine: Reports: No Symptoms GI/Abdominal: Reports: No Symptoms : Reports: No Symptoms Musculoskeletal: Reports: No Symptoms Skin: Reports: No Symptoms Neurological: Reports: No Symptoms Psychiatric: Reports: No Symptoms ED EXAM, GENERAL - Physical Exam Exam: See Below Exam Limited By: No Limitations General Appearance: Alert, WD/WN, No Apparent Distress Eye Exam: Bilateral Eye: Normal Inspection, Other (pale conjunctivas) Ears: Normal External Exam, Normal Canal, Hearing Grossly Normal Ear Exam: Bilateral Ear: Auricle Normal, Canal Normal Nose: Normal Inspection, Normal Mucosa, No Blood Throat/Mouth: Normal Inspection, Normal Lips, Normal Oropharynx, Normal Voice, No Airway Compromise Head: Atraumatic, Normocephalic Neck: Normal Inspection, Supple, Non-Tender Respiratory/Chest: No Respiratory Distress, Lungs Clear, Normal Breath Sounds, No Accessory Muscle Use Cardiovascular: Regular Rate, Rhythm, No Edema, Tachycardia GI/Abdominal: Normal Bowel Sounds, Soft, Non-Tender, No Distention Extremities: Normal Inspection, Normal Range of Motion, Non-Tender, No Pedal Edema Neurological: Alert, Oriented, CN II-XII Intact, Normal Cognition, No Motor/ Sensory Deficits Psychiatric: Normal Affect, Normal Mood Skin Exam: Warm, Dry, Intact, Normal Color, No Rash Lymphatic: No Adenopathy Course - Vital Signs Last Recorded V/S: Last Vital Signs Temp 36.6 C 07/30/17 10:20 Pulse 91 07/30/17 11:55 Resp 15 07/30/17 11:55 BP 166/100 H 07/30/17 11:55 Pulse Ox 95 07/30/17 11:55 Orthostatic Blood Pressure [ 132/82 Standing] Orthostatic Blood Pressure [ 151/97 Sitting] Orthostatic Blood Pressure [ 147/87 Supine] - Orders/Labs/Meds Orders: Active Orders 24 hr Category Date Time Status Cardiac Monitoring [RC] .As Directed Care 07/30/17 09:46 Active Orthostatic Vital Signs [RC] ASDIRECTED Care 07/30/17 09:47 Active Ang Chest [CT] Stat Exams 07/30/17 11:34 Taken UA W/MICROSCOPIC [URIN] Stat Lab 07/30/17 11:26 Ordered Iopamidol [Isovue-370 (76%)] Med 07/30/17 12:30 Active 60 ml IV . DIRECTED Lactated Ringers [Ringers, Lactated] 1,000 ml Med 07/30/17 11:45 Active IV ASDIRECTED Sodium Chloride 0.9% [Saline Flush] Med 07/30/17 10:46 Active 10 ml FLUSH ASDIRECTED PRN Sodium Chloride 0.9% [Saline Flush] Med 07/30/17 12:19 Active 10 ml FLUSH ONETIME PRN Saline Lock Insert [OM.PC] Routine Oth 07/30/17 10:46 Ordered Medication Orders Lactated Ringer's (Ringers, Lactated) 1,000 mls @ 500 mls/hr IV ASDIRECTED JUSTINE Last Admin: 07/30/17 12:04 Dose: 500 mls/hr Iopamidol (Isovue-370 (76%)) 60 ml IV . DIRECTED [facility] Last Admin: 07/30/17 12:32 Dose: 100 ml Sodium Chloride (Saline Flush) 10 ml FLUSH ASDIRECTED PRN PRN Reason: Keep Vein Open Last Admin: 07/30/17 10:51 Dose: 10 ml Sodium Chloride (Saline Flush) 10 ml FLUSH ONETIME PRN PRN Reason: PER RADIOLOGY PROTOCOL Last Admin: 07/30/17 12:32 Dose: 10 ml Labs: Laboratory Tests 07/30/17 07/30/17 07/30/17 Range/Units 10:50 10:50 10:50 WBC 7.1 (4.5-11.0) K/uL RBC 3.90 (3.30-5.50) M/uL Hgb 9.2 L (12.0-15.0) g/dL Hct 32.2 L (36.0-48.0) % MCV 83 (80-98) fL MCH 24 L (27-31) pg MCHC 29 L (32-36) % Plt Count 286 (150-400) K/uL D-Dimer, Quantitative 1310 H (0.0-400.0) ng/mL Sodium 142 (140-148) mmol/L Potassium 4.2 (3.6-5.2) mmol/L Chloride 105 (100-108) mmol/L Carbon Dioxide 30 (21-32) mmol/L Anion Gap 7.2 (5.0-14.0) mmol/L BUN 22 H (7-18) mg/dL Creatinine 1.3 H (0.6-1.0) mg/dL Est Cr Clr Drug Dosing 27.68 mL/min Estimated GFR (MDRD) 40 L (>60) Glucose 109 H (74-106) mg/dL Calcium 8.8 (8.5-10.1) mg/dL Troponin I 0.031 (0.000-0.056) ng/mL Urine Color Urine Appearance Urine pH (4.5-8.0) Ur Specific [place] (1.008-1.030) Urine Protein (NEGATIVE) mg/dL Urine Glucose (UA) (NEGATIVE) mg/dL Urine Ketones (NEGATIVE) mg/dL Urine Occult Blood (NEGATIVE) Urine Nitrite (NEGATIVE) Urine Bilirubin (NEGATIVE) Urine Urobilinogen (NORMAL) mg/dL Ur Leukocyte Esterase (NEGATIVE) Urine RBC (0-5) Urine WBC (0-5) Ur Epithelial Cells Amorphous Sediment Urine Bacteria Urine Mucus 07/30/17 Range/Units 11:26 WBC (4.5-11.0) K/uL RBC (3.30-5.50) M/uL Hgb (12.0-15.0) g/dL Hct (36.0-48.0) % MCV (80-98) fL MCH (27-31) pg MCHC (32-36) % Plt Count (150-400) K/uL D-Dimer, Quantitative (0.0-400.0) ng/mL Sodium (140-148) mmol/L Potassium (3.6-5.2) mmol/L Chloride (100-108) mmol/L Carbon Dioxide (21-32) mmol/L Anion Gap (5.0-14.0) mmol/L BUN (7-18) mg/dL Creatinine (0.6-1.0) mg/dL Est Cr Clr Drug Dosing mL/min Estimated GFR (MDRD) (>60) Glucose (74-106) mg/dL Calcium (8.5-10.1) mg/dL Troponin I (0.000-0.056) ng/mL Urine Color Yellow Urine Appearance Clear Urine pH 6.0 (4.5-8.0) Ur Specific [place] 1.010 (1.008-1.030) Urine Protein 500 H (NEGATIVE) mg/dL Urine Glucose (UA) Normal (NEGATIVE) mg/dL Urine Ketones Negative (NEGATIVE) mg/dL Urine Occult Blood Moderate (NEGATIVE) Urine Nitrite Negative (NEGATIVE) Urine Bilirubin Negative (NEGATIVE) Urine Urobilinogen Normal (NORMAL) mg/dL Ur Leukocyte Esterase Negative (NEGATIVE) Urine RBC 5-10 H (0-5) Urine WBC 0-5 (0-5) Ur Epithelial Cells Few Amorphous Sediment Not seen Urine Bacteria Many Urine Mucus Not seen Meds: Medications Generic Name Dose Route Start Last Admin Trade Name Freq PRN Reason Stop Dose Admin Lactated Ringer's 1,000 mls @ 500 mls/hr 07/30/17 11:45 07/30/17 12:04 Ringers, Lactated IV 500 mls/hr ASDIRECTED JUSTINE Administration Iopamidol 60 ml 07/30/17 12:30 07/30/17 12:32 Isovue-370 (76%) IV 100 ml . DIRECTED JUSTINE Administration Sodium Chloride 10 ml 07/30/17 10:46 07/30/17 10:51 Saline Flush FLUSH 10 ml ASDIRECTED PRN Administration Keep Vein Open Sodium Chloride 10 ml 07/30/17 12:19 07/30/17 12:32 Saline Flush FLUSH 10 ml ONETIME PRN Administration PER RADIOLOGY PROTOCOL Discontinued Medications Generic Name Dose Route Start Last Admin Trade Name Freq PRN Reason Stop Dose Admin Sodium Chloride 84 mls @ 3 mls/sec 07/30/17 12:19 07/30/17 12:32 Normal Saline IV 07/30/17 12:20 3 mls/sec ONETIME ONE Administration Metoclopramide HCl 10 mg 07/30/17 11:59 07/30/17 12:03 Reglan IVPUSH 07/30/17 12:00 10 mg ONETIME ONE Administration - Radiology Interpretation Free Text/Narrative:: CT PE study-bilat. chronic pulmonary effusions, no PE CT Results Date: 07/30/17 CT Results Time: 13:40 Departure - Departure Time of Disposition: 13:44 Disposition: Home, Self-Care 01 Condition: Fair Clinical Impression: Elevated d-dimer, Pleural effusion, Near syncope - Discharge Information Referrals: Howard De Oliveira, SALES REP [Primary Care Provider] - Forms: ED Department Discharge - My Orders Last 24 Hours: My Active Orders 07/30/17 09:46 Cardiac Monitoring [RC] .As Directed 07/30/17 09:47 Orthostatic Vital Signs [RC] ASDIRECTED 07/30/17 10:46 Sodium Chloride 0.9% [Saline Flush] 10 ml FLUSH ASDIRECTED PRN Saline Lock Insert [OM.PC] Routine 07/30/17 11:26 UA W/MICROSCOPIC [URIN] Stat 07/30/17 11:34 Ang Chest [CT] Stat 07/30/17 11:45 Lactated Ringers [Ringers, Lactated] 1,000 ml IV ASDIRECTED 07/30/17 12:19 Sodium Chloride 0.9% [Saline Flush] 10 ml FLUSH ONETIME PRN 07/30/17 12:30 Iopamidol [Isovue-370 (76%)] 60 ml IV . DIRECTED - Assessment/Plan Last 24 Hours: My Active Orders 07/30/17 09:46 Cardiac Monitoring [RC] .As Directed 07/30/17 09:47 Orthostatic Vital Signs [RC] ASDIRECTED 07/30/17 10:46 Sodium Chloride 0.9% [Saline Flush] 10 ml FLUSH ASDIRECTED PRN Saline Lock Insert [OM.PC] Routine 07/30/17 11:26 UA W/MICROSCOPIC [URIN] Stat 07/30/17 11:34 Ang Chest [CT] Stat 07/30/17 11:45 Lactated Ringers [Ringers, Lactated] 1,000 ml IV ASDIRECTED 07/30/17 12:19 Sodium Chloride 0.9% [Saline Flush] 10 ml FLUSH ONETIME PRN 07/30/17 12:30 Iopamidol [Isovue-370 (76%)] 60 ml IV . DIRECTED
[2017-07-30] MEDS ORDERED: Lactated Ringers 1,000 ML IV SCH (11:45)
[2017-07-30] MEDS ORDERED: Metoclopramide 10 MG/2 ML SDV IVPUSH ONE (11:59)
[2017-07-30] MEDS ORDERED: Iopamidol 755 Mg/ML 100 ML Bottle IV SCH (12:30)
--- NOTE | 2017-07-30 13:48 | CT ---
Ang Chest CLINICAL HISTORY: Near syncope, elevated d-dimer, hypoxia TECHNIQUE: Thin section axial contiguous tomographic sections were taken through the chest before and after bolus IV iodinated contrast administration. Coronal and sagittal images were reconstructed. Au to dosage reduction and iterative reconstruction techniques employed. FINDINGS: Patient has moderate bilateral pleural effusions which have increased since 2017. There is some patchy atelectasis in both lung bases. The heart is enlarged. There are no filling defects in th e pulmonary arteries. The aorta is free of the aneurysm or dissection. No mediastinal mass is identif ied. There is some scattered mediastinal lymph nodes which are similar to 2017. Impression: No evidence of pulmonary embolus Moderate bilateral pleural effusions right greater than left. These have increased since prior study Scattered mediastinal lymph nodes similar to prior study Patchy bibasal atelectasis
== END 2017-07-30 14:35 | disposition home or self-care (01) ==
LOC: JP.ED 09:43
DX: J90 Pleural effusion, not elsewhere classified (principal); R55 Syncope and collapse; R79.1 Abnormal coagulation profile; I12.9 Hypertensive chronic kidney disease with stage 1 through stage 4 chronic kidney disease, or unspecified chronic kidney disease; N18.9 Chronic kidney disease, unspecified; I25.2 Old myocardial infarction; E78.00 Pure hypercholesterolemia, unspecified; F41.9 Anxiety disorder, unspecified; F32.9 Major depressive disorder, single episode, unspecified; Z87.891 Personal history of nicotine dependence; Z79.899 Other long term (current) drug therapy; Z88.2 Allergy status to sulfonamides; Z91.040 Latex allergy status; Z91.013 Allergy to seafood; Z88.8 Allergy status to other drugs, medicaments and biological substances; Z91.09 Other allergy status, other than to drugs and biological substances
CPT/HCPCS: 36415; 71275; 80048; 81001; 84484; 85027; 85379; 96361; 96374; 99285; J2765; J7030; J7050; J7120; Q9967